=== PATIENT | male | born 1990 | race Caucasian/White ===

== ENCOUNTER 2024-01-16 09:01 | Emergency (ER) | payer OTHER, SELFPAY ==
[2024-01-16 09:03] VITALS: BP 136/100; PULSE 99; RESP 18; TEMP 36.4; O2SAT 98; BMI 40.3
--- NOTE | 2024-01-16 09:12 | NURSING ---
NO OLD EKGS
--- NOTE | 2024-01-16 09:17 | EKG12_ITS ---
Test Reason : PALP Blood Pressure : / mmHG Vent. Rate : 087 BPM Atrial Rate : 087 BPM P-R Int : 190 ms QRS Dur : 080 ms QT Int : 332 ms P-R-T Axes : 036 013 008 degrees QTc Int : 399 ms Normal sinus rhythm Normal ECG Confirmed by Julius Tomlinson ([id number]), communications editor SLOANE MCPHERSON ([id number]) on 01/17/2024 9:23:40 AM Referred By: JOANN/CRIS Confirmed By:Julius Tomlinson
--- NOTE | 2024-01-16 09:17 | RAD_ITS ---
INDICATION: chest pain EXAMINATION/TECHNIQUE: X-RAY - XR Chest 1 View COMPARISON: No relevant prior comparison study available FINDINGS: LINES/DEVICES: None. LUNGS: No consolidation, edema or effusion. No pneumothorax. MEDIASTINUM AND CARDIOVASCULAR STRUCTURES: Cardiac silhouette not enlarged. Central airways and mediastinal contour are unremarkable. BONES AND SOFT TISSUES: Unremarkable. RAD/Chest 1 View (Portable) IMPRESSION: No radiographic evidence of acute cardiopulmonary disease. Electronically Signed: Viry Donahue MD at 9:49 EDT ,
--- NOTE | 2024-01-16 09:21 | EDS_ITS ---
HPI History of Present Illness Chief Complaint: Palpitations PFSH PFSH Allergy/AdvReac Type Severity Reaction Status Date / Time No Known Allergies Allergy Verified 01/16/24 09:02 Social History Smoking Status: Never smoker EXAM Physical Exam Const Vital Signs: 01/16/24 09:03 01/16/24 10:01 01/16/24 10:02 Temperature 97.6 F L Temperature Source Oral Pulse Rate 99 77 Respiratory Rate 18 15 Blood Pressure 136/100 H 123/84 H Blood Pressure Mean 112 97 Pulse Ox 98 Oxygen Delivery Method Room Air Room Air 01/16/24 11:00 01/16/24 12:00 01/16/24 13:00 Temperature Temperature Source Pulse Rate 77 81 62 Respiratory Rate 14 19 H Blood Pressure 135/81 H 107/46 L 121/67 H Blood Pressure Mean 99 66 85 Pulse Ox Oxygen Delivery Method MDM MDM MDM Narrative Medical decision making narrative: HISTORY OF PRESENT ILLNESS: 33-year-old male presents with concern for heart fluttering. States he was driving to work. He felt like his heart was racing like he drank too much red bull. He states his dad in August from a heart attack. 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 Notes this occurred 1- 1/2 hours prior to arrival. Notes last for approximate 20 minutes. Notes this resolved spontaneously. The patient denies recent surgery in the last 4 weeks or immobilization in the last 3 days, denies previous diagnosis of DVT or PE, hemoptysis, unilateral leg swelling or malignancy with treatment the last 6 months or palliative. No estrogen use noted. Patient denies sudden onset of pain, no tearing sensation, no migratory symptoms, no new numbness, weakness or loss of sensation. Patient denies family history or personal history of Connective tissue disorders (Marfan's Syndrome, Jad Danlos etc) REVIEW OF SYSTEMS: Pertinent positives: Palpitations Pertinent negatives: Syncope, chest pain, shortness of breath, leg swelling, bleeding diathesis, mopped assist. PHYSICAL EXAM: Nursing triage notes reviewed, Vital signs reviewed Constitutional: please see mdm HENT: MMM Eyes: Pupils equal round and reactive to light, Extraocular muscles intact Neck: No stridor, no JVD, full neck ROM Lungs: Clear to auscultation, No wheezing or rales. No increased work of breathing, no conversational dyspnea, no accessory muscle use, no nasal flaring. No respiratory distress noted Heart: Regular rate and rhythm, No murmurs, No rubs and No gallops, 2+ distal pulses (radial, femoral, posterior tibial) in all extremities Abdomen: Soft, there is no tenderness, rigidity, rebound or guarding, no obvious peritoneal signs, no palpable pulsatile abdominal masses, no auscultated abdominal bruit : No CVAT Extremities: No edema Neuro: No focal neurological deficits, cranial nerves II through XII intact, 5/5 strength in all extremities. Intact sensation to light touch in all extremities, 2+ reflexes bilateral patella tendons. Normal gait. No ataxia. Skin: No rash or lesions noted MEDICAL DECISION MAKING: Chief Complaint: Palpitations External records reviewed: Reviewed prior allergy allergies, vital signs, home medications, prior cardiac imaging. Factors affecting care: none Social determinants of health: denies cocaine or methamphetamine History obtained from others: none Consults: none no focal cardiopulmonary normalities. No pulse deficits. MDM Narrative: The patient was initially hemodynamically stable, afebrile and nontoxic- appearing. Exam without focal cardiopulmonary normalities I considered the following differential diagnosis: Arrhythmia, anemia, electrolyte disturbance, thyroid dysfunction, pneumonia, pneumothorax, ACS, PE, aortic dissection While considered the patient's history and physical exam was not consistent with pulm embolism or any dissection ALL IMAGES (IF OBTAINED) HAVE BEEN PERSONALLY REVIEWED AND INTERPRETED BY MYSELF. EKG with normal sinus rhythm, normal axis, normal intervals, no STEMI CBC without leukocytosis, severe anemia, no thrombocytopenia. High-sensitivity troponin is negative, no evidence of myocardial ischemiax2 TSH, free T3 and T4 within normal limits no evidence of thyroid dysfunction I have personally reviewed the patient's chest x-ray. Chest x-ray is unremarkable for pulmonary edema, pneumothorax, pneumonia or focal cardiopulmonary abnormality. CBC without leukocytosis, severe anemia, no thrombocytopenia. BMP without evidence of significant electrolyte abnormalities, no anion gap, no acute kidney injury. I completed a HEART Score to screen for Major Adverse Cardiac Event (MACE) in this patient. The evidence indicates that the patient is very low risk for MACE and this is consistent with my clinical intuition. The risk of further workup or hospitalization for MACE is likely higher than the risk of the patient having a MACE. It is, therefore, in the patient?s best interest not to do additional emergent testing or to be hospitalized for MACE at this time. Shared Decision-Making No hospitalization indicated I have discussed with the patient my clinical impression and the result of the HEART Score to screen for MACE, as well as the risks of further testing and hospitalization. The HEART Score shows that the risk for MACE is less than 1%. Although the risk of MACE has not been completely eliminated, the risks of f urther testing or hospitalization for MACE likely exceed any potential benefit, and the patient agrees with not pursuing further emergent evaluation or hospitalization for MACE at this time. The patient and/or family, caregivers express understanding. The patient and/or family, caregivers agrees with the plan. Total critical care time today provided was at least 0 [] minutes. This excludes separately billable procedures. Critical care time (if documented) is secondary to the patient having high probability of clinically significant/life threatening deterioration in the patient's condition which required my urgent intervention. Impression: 1. Palpitations 2. Family history of myocardial infarction Dispo: discharge home This note was generated with [employer] dictation software. It may contain incorrect words, spelling, and punctuation that were not noted in review of the chart prior to signing. Lab Data Labs: Laboratory Results - last 24 hr 01/16/24 01/16/24 09:30 11:40 WBC 7.1 RBC 4.60 Hgb 13.6 Hct 38.8 L MCV 84.3 MCH 29.6 MCHC 35.1 RDW Std Deviation 38.0 RDW Coeff of Kimberlee 12.5 Plt Count 185 MPV 8.7 Immature Gran % (Auto) 0.100 Neut % (Auto) 70.7 H Lymph % (Auto) 22.1 [place] % (Auto) 5.2 Eos % (Auto) 1.5 Baso % (Auto) 0.4 Absolute Neuts (auto) 5.0 Absolute Lymphs (auto) 1.57 Nucleated RBC % 0 Sodium 140 Potassium 3.9 Chloride 108 H Carbon Dioxide 26.0 Anion Gap 6 BUN 12 Creatinine 1.18 Estim Creat Clear Calc 101.79 Est GFR (MDRD) Af Amer 91 Est GFR (MDRD) Non-Af 75 BUN/Creatinine Ratio 10.2 Glucose 119 H Calcium 9.5 Troponin I High Sens 4 4 TSH 1.920 Free T4 0.95 Free T3 pg/dL 3.2 Radiography Diagnostic Testing: Clinical Impression(s) from Imaging Studies Chest X-Ray 10/15/24 09:17 IMPRESSION: No radiographic evidence of acute cardiopulmonary disease. Electronically Signed: Viry Donahue MD at 9:49 EDT , Discharge Plan Triage Chief Complaint: Palpitations ED Provider: Jeffrey Fregoso Dx/Rx/DC Orders Primary Care Provider: Drew Ann Referrals: Drew Ann, DO [Primary Care Provider] - Print Language: Senegalese
[2024-01-16 09:36] LABS: Absolute Lymphocyte Count 1.57 X10^3/uL (0.83-4.51); Basophil# 0.03 X10^3/uL; Basophil% 0.4 % (0-1); Eosinophil# 0.11 X10^3/uL; Eosinophils% 1.5 % (0-5); Hematocrit 38.8 % (40-54); Hemoglobin 13.6 g/dL (13.0-16.5); Lymphocyte # 1.57 X10^3/ul (0.83-4.51); Lymphocyte % 22.1 % (19-41); Mean Corp Hgb Conc 35.1 g/dL (32-36); Mean Corpuscular Hgb 29.6 pg (27.0-32.0); Mean Corpuscular Volume 84.3 fL (80-94); Mean Platelet Vol. 8.7 fl (6.2-12.0); Monocyte# 0.37 X10^3/uL; Monocyte% 5.2 % (0-10); NRBC Flagged by Analyzer 0 % (0-5); Neutrophil # 5.01 X10^3/uL (2.7-7.7); Neutrophil % 70.7 % (47-70); Platelet Count 185 K/mm3 (150-450); RBC Distribution Width CV 12.5 % (11.6-14.6); White Blood Count 7.1 K/mm3 (4.4-11.0)
[2024-01-16 10:01] LABS: Anion Gap 6 (5-15); BUN 12 mg/dL (7-18); BUN/Creat Ratio 10.2 RATIO (10-20); Calcium,Total 9.5 mg/dL (8.5-10.1); Chloride 108 mmol/L (98-107); Creatinine, Serum 1.18 mg/dL (0.70-1.30); EST Glomerular Filtration Rate 75 mL/min (>60); Est Glom Filt Rate - Afr Amer 91 mL/min (>60); Estimated Creatinine Clearance 101.79 ml/min; Free T3 3.2 pg/mL (2.18-3.98); Glucose 119 mg/dL (74-106); Potassium 3.9 mmol/L (3.5-5.1); Sodium Level 140 mmol/L (136-145); T4 Free Direct 0.95 ng/dL (0.76-1.46); Troponin-I HS (w/2H Reflex) 4 pg/mL (3.0-78.0)
[2024-01-16 10:02] VITALS: BP 123/84; PULSE 77; RESP 15
[2024-01-16 11:00] VITALS: BP 135/81; PULSE 77; RESP 14
[2024-01-16 11:33] LABS: Reflex Troponin-HS? (from REC) Y
[2024-01-16 12:00] VITALS: BP 107/46; PULSE 81; RESP 19
[2024-01-16 12:05] LABS: Troponin-I HS 4 pg/mL (3.0-78.0)
[2024-01-16 13:00] VITALS: BP 121/67; PULSE 62
[2024-01-16 13:20] VITALS: BP 102/76; PULSE 80; RESP 16; TEMP 36.4; O2SAT 100
== END 2024-01-16 13:49 | disposition home or self-care (01) ==
PROVIDERS: Emergency Provider Emergency Medicine; PCP Family Medicine; Visit Provider Emergency Medicine
DX: R00.2 Palpitations (principal); Z82.49 Family history of ischemic heart disease and other diseases of the circulatory system
CPT/HCPCS: 71045; 80048; 84439; 84443; 84481; 84484; 85025; 93005; 99284; A4216

== ENCOUNTER 2024-11-03 02:54 | Emergency (ER) | payer OTHER, SELFPAY ==
[2024-11-03 02:55] VITALS: BP 144/92; PULSE 90; RESP 14; TEMP 36.4; O2SAT 98; BMI 39.2
--- NOTE | 2024-11-03 03:30 | EKG12_ITS ---
Test Reason : PAIN Blood Pressure : */* mmHG Vent. Rate : 78 BPM Atrial Rate : 78 BPM P-R Int : 184 ms QRS Dur : 78 ms QT Int : 360 ms P-R-T Axes : 23 14 10 degrees QTcB Int : 410 ms Normal sinus rhythm Normal ECG Confirmed by PATTI HAMM, TORI ([id number]), design editor SLOANE MCPHERSON ([id number]) on 11/05/2024 7:46:25 AM Referred By: Confirmed By: TORI ARMSTRONG MD
[2024-11-03 03:43] LABS: Hematocrit 38.7 % (40-54); Hemoglobin 13.8 g/dL (13.0-16.5); Immature Granulocytes Count 0.020 X10^3/uL (0.0-0.0); Mean Corp Hgb Conc 35.7 g/dL (32-36); Mean Corpuscular Volume 84.9 fL (80-94); Mean Platelet Vol. 8.8 fl (6.2-12.0); NRBC Flagged by Analyzer 0 % (0-5); Platelet Count 188 K/mm3 (150-450); RBC Distribution Width CV 12.3 % (11.6-14.6); RBC Distribution Width SD 37.6 fl (35.1-43.9); Red Blood Count 4.56 M/mm3 (4.6-6.2); White Blood Count 7.2 K/mm3 (4.4-11.0)
[2024-11-03] MEDS: 0.9% Normal Saline (500mL Bag) 500 ML 999 ML IV (03:44)
--- OUTSIDE RECORDS SUMMARY | 2024-11-03 04:29 | XMS RPT_ITS | CCD ---
Author Organization [facility] Care Team Providers Care Syrup Mixer Helper Name Role Phone Khalida Ann DO A Unavailable Letty DO, Khalida A Primary Care Provider Jefrfey Fregoso Attending Unavailable Letty, Khalida Primary Care Unavailable Letty, Khalida Referring Unavailable Letty, Khalida Attending Unavailable Letty, Khalida Primary Care Unavailable Letty DO, Khalida A Unavailable [phone] Letty DO, Khalida A Primary Care Provider KATHRINE HUNTER Attending Unavailable LETTY, KHALIDA A Primary Care Unavailable LETTY, KHALIDA A Primary Care Unavailable KATHRINE HUNTER Referring Unavailable LETTY, KHALIDA A Primary Care Unavailable KATHRINE HUNTER Attending Unavailable KATHRINE HUNTER Referring Unavailable LETTY, KHALIDA A Primary Care Unavailable LETTY, KHALIDA A Primary Care Unavailable KATHRINE HUNTER Attending Unavailable KATHRINE HUNTER Referring Unavailable LETTY, KHALIDA A Primary Care Unavailable KATHRINE HUNTER Referring Unavailable LETTY, KHALIDA A Primary Care Unavailable LETTY, KHALIDA A Referring Unavailable LETTY, KHALIDA A Primary Care Unavailable LETTY, KHALIDA A Primary Care Unavailable KATHRINE HUNTER Attending Unavailable KATHRINE HUNTER Referring Unavailable LETTY, KHALIDA A Primary Care Unavailable LETTY, KHALIDA A Primary Care Unavailable LETTY, KHALIDA A Primary Care Unavailable KATHRINE HUNTER Referring Unavailable LETTY, KHALIDA A Primary Care Unavailable LETTY, KHALIDA A Primary Care Unavailable KATHRINE HUNTER Referring Unavailable LETTY, KHALIDA A Primary Care Unavailable LETTY, KHALIDA A Referring Unavailable LETTY, KHALIDA A Primary Care Unavailable Medications Current Medications Medication Drug Class(es) Dates Sig (Normalized) Sig (Original) benztropine mesylate 0.5 mg oral tablet (20 sources) Anticholinergic, Antihistamine Start: 04-06-2023 End: 02-20-2024 take 1 tablet by mouth twice daily benztropine (COGENTIN) 0.5 mg tablet Take 1 tablet by mouth two times a day. 180 tablet 02/20/2024 Active Start: 03-31-2022 End: 05-05-2022 take 1 tablet by mouth twice daily benztropine (COGENTIN) 0.5 mg tablet Take 1 tablet by mouth twice daily. 180 tablet 1 05/05/2022 Active Start: 02-28-2022 take 1 tablet by gris th twice daily benztropine (COGENTIN) 0.5 mg tablet Take 1 tablet by mouth twice daily. 180 tablet 0 02/28/2022 Active Start: 2021 End: 02-28-2022 take 1 tablet by mouth twice daily benztropine (COGENTIN) 0.5 mg tablet Take 1 tablet by mouth twice daily. 180 tablet 0 01/03/2022 02/28/2022 Discontinued Comment on above: Take 1 tablet by gris th twice daily. TAKE 1 TABLET BY GRIS TH TWICE A DAY Take 1 tablet by gris th two times a day. 24 hr buPROPion hydrochloride 300 mg extended release oral tablet (20 sources) Aminoketone Start: End: take 1 tablet by mouth once daily in the morning buPROPion XL (WELLBUTRIN XL) 300 mg 24 hr tablet TAKE 1 TABLET BY MOUTH EVERY MORNING 90 tablet 09/23/2024 Active Start: 04-01-2021 End: 03-09-2023 take 1 tablet by mouth once daily in the morning buPROPion XL (WELLBUTRIN XL) 300 mg 24 hr tablet take 1 tablet by mouth once daily in the morning 90 tablet 0 03/09/2023 Active Comment on above: Take 1 tablet by gris th every morning. take 1 tablet by gris th once daily in the morning fenofibrate 54 mg oral tablet (20 sources) Peroxisome Proliferator Receptor alpha Agonist Start: 09-17-19 Fenofibrate (LOFIBRA) 54 mg tablet 09/16/2021 Active hydrOXYzine hydrochloride 25 mg oral tablet (20 sources) Antihistamine Start: 03-28-20 End: 01-22-20 25 take 1 tablet by mouth every eight hours as needed hydrOXYzine HCl (ATARAX) 25 mg tablet TAKE 1 TABLET BY MOUTH THREE TIMES DAILY NEEDED FOR ANXIETY 90 tablet 04/24/2024 Active Start: 09-05-2023 End: 12-04-2023 take 1 tablet by mouth every eight hours as needed hydrOXYzine HCl (ATARAX) 25 mg tablet Take 1 tablet by mouth three times a day as needed for anxiety. 90 tablet 2 09/05/2023 12/04/2023 Active Start: 03-06-2023 End: 08-14-2023 take 1 tablet by mouth every eight hours as needed hydrOXYzine HCl (ATARAX) 25 mg tablet Take 1 tablet by mouth three times a day as needed for anxiety. 90 tablet 2 05/16/2023 08/14/2023 Active Start: 08-15-2022 End: 09-14-2022 take 1 tablet by mouth every eight hours as needed hydrOXYzine HCl (ATARAX) 25 mg tablet Take 1 tablet by mouth three times daily as needed for anxiety. 90 tablet 3 08/15/2022 09/14/2022 Active Start: 04-05-2021 End: 10-03-2021 take 1 tablet by mouth every eight hours as needed hydrOXYzine HCl (ATARAX) 10 mg tablet Take 1 tablet by mouth three times daily as needed for anxiety. 90 tablet 1 07/05/2021 10/03/2021 Active Comment on above: TAKE 1 TABLET BY GRIS TH THREE TIMES A DAY NEEDED FOR ANXIETY Take 1 tablet by gris th three times daily as needed for anxiety. take 1 tablet by gris th three times daily as needed for anxiety Take 1 tablet by gris th three times a day as needed for anxiety. lamoTRIgine 150 mg oral tablet (20 sources) Mood Stabilizer, Anti-epileptic Agent Start: 10-23-2024 End: 01-21-2025 take 1 tablet by mouth once daily lamoTRIgine (LAMICTAL) 150 mg tablet Take 1 tablet by mouth once daily. 90 tablet 10/23/2024 01/21/2025 Active Start: 07-06-2023 End: 09-30-2024 take 1 tablet by mouth once daily lamoTRIgine (LAMICTAL) 150 mg tablet Take 1 tablet by mouth once daily. 90 tablet 07/02/2024 09/30/2024 Active Start: 09-13-2022 End: 08-14-2023 take 1 tablet by mouth once daily lamoTRIgine (LAMICTAL) 100 mg tablet Take 1 tablet by mouth once daily. 90 tablet 0 05/16/2023 07/06/2023 Discontinued Start: 08-15-2022 End: 09-26-2022 take 1 tablet by mouth once daily, then take 2 tablets by mouth once daily, then take 3 tablets by mouth once daily lamoTRIgine (LAMICTAL) 25 mg tablet Take 1 tablet by mouth once daily for 14 days, THEN 2 tablets once daily for 14 days, THEN 3 tablets once daily for 14 days. 84 tablet 0 08/15/2022 09/26/2022 Active Comment on above: Take 1 tablet by gris th once daily for 14 days, THEN 2 tablets once daily for 14 days, THEN 3 tablets once daily for 14 days. Take 1 tablet by gris th once daily. Take 1 tablet by gris th once daily prazosin 2 mg oral capsule (20 sources) alpha-Adrenergic Kayla Start: 06-10-2024 End: 07-02-2024 take 1 capsule by mouth every twenty-four hours as needed prazosin (MINIPRESS) 2 mg cap Take 1 capsule by mouth at bedtime as needed. 90 capsule 07/02/2024 Active Start: 09-05-2023 End: 05-20-2024 take 1 capsule by mouth once daily at bedtime prazosin (MINIPRESS) 2 mg cap Take 1 capsule by mouth daily at bedtime. 90 capsule 02/20/2024 05/20/2024 Active Start: 08-04-2023 End: 09-21-2023 take 1 capsule by mouth once daily at bedtime prazosin (MINIPRESS) 1 mg cap Take 1 capsule by mouth daily at bedtime. 30 capsule 0 08/22/2023 09/05/2023 Discontinued (Adjust Sig - Block E-Cancel) risperiDONE 12.5 mg injection (20 sources) Atypical Antipsychotic Start: 07-09-2024 End: 10-29-2024 inject 4 mL by intramuscular injection every other week risperiDONE Microspheres (RISPERDAL CONSTA) 12.5 mg/2 mL susp,ERrecon INJECT 4 ML INTRAMUSCULARLY EVERY TWO WEEKS 4 each 3 10/23/2024 Active Start: 05-27-2024 End: 10-22-2024 take 1 tablet by mouth once daily at bedtime risperiDONE (RISPERDAL) 4 mg tablet Take 1 tablet by mouth daily at bedtime. 90 tablet 10/23/2024 Active Start: 04-06-2023 End: 07-23-2024 inject 4 mL by intramuscular injection every other week risperiDONE Microspheres (RISPERDAL CONSTA) 12.5 mg/2 mL susp,ERrecon INJECT 4 ML INTRAMUSCULARLY EVERY TWO WEEKS 4 each 3 07/23/2024 Active Start: 02-02-2023 End: 03-09-2023 inject 4 mL by intramuscular injection every other week risperiDONE Microspheres (RISPERDAL CONSTA) 12.5 mg/2 mL susp,ERrecon INJECT 4 ML INTRAMUSCULARLY EVERY TWO WEEKS 4 Each 2 03/09/2023 Active Start: 08-15-2022 End: 05-20-2024 take 1 tablet by mouth once daily at bedtime risperiDONE (RISPERDAL) 4 mg tablet Take 1 tablet by mouth daily at bedtime. 90 tablet 02/20/2024 05/20/2024 Active Start: 08-15-2022 End: 06-07-2023 take 1 tablet by mouth once daily risperiDONE (RISPERD AL) 1 mg tablet Take 1 tablet by mouth once daily. 90 tablet 0 03/09/2023 06/07/2023 Active Start: 08-15-2022 End: 11-29-2022 inject 4 mL by intramuscular injection every other week risperiDONE Microspheres (RISPERDAL CONSTA) 12.5 mg/2 mL susp,ERrecon Inject 4 mL intramuscularly every 2 weeks. 4 Each 4 08/31/2022 Active Start: 07-05-2021 End: 08-03-2022 take 1 tablet by mouth once daily risperiDONE (RISPERD AL) 1 mg tablet Take 1 tablet by mouth once daily. 90 tablet 1 05/05/2022 08/03/2022 Active Start: 04-01-2021 End: 08-03-2022 take 1 tablet by mouth once daily at bedtime risperiDONE (RISPERDAL) 4 mg tablet Take 1 tablet by mouth daily at bedtime. 90 tablet 1 05/05/2022 08/03/2022 Active Start: 04-01-2021 End: 08-03-2022 inject 4 mL by intramuscular injection every other week risperiDONE Microspheres (RISPERDAL CONSTA) 12.5 mg/2 mL susp,ERrecon Inject 4 mL intramuscularly every 2 weeks. 4 Each 2 05/05/2022 08/03/2022 Active Comment on above: Take 1 tablet by gris th daily at bedtime. Inject 4 mL intramus cularly every 2 weeks. Take 1 tablet by gris th once daily as needed. Take 1 tablet by gris th once daily. INJECT 4 ML INTRAMUS CULARLY EVERY TWO WEEKS Problems Active Problems Problem Classification Problem Date Documented Date Episodic/Chronic Anxiety disorders (13 sources) Generalized anxiety disorder; Translations: [Generalized anxiety disorder] Onset: 11-17-2023 Chronic Cardiac dysrhythmias (1 source) Palpitations; Translations: [Palpitations] Onset: 02-07-2024 Episodic Disorders of lipid metabolism (3 sources) Hyperlipoproteinemia; Translations: [Hyperlipidemia, unspecified] Onset: 09-09-2023 07-17-2023 Chronic Nonspecific chest pain (1 source) Chest pain; Translations: [Chest pain, unspecified] 01-16-2024 Episodic Schizophrenia and other psychotic disorders (20 sources) Schizoaffective disorder, bipolar type; Translations: [Schizoaffective disorder, bipolar type] Onset: 08-15-2022 Chronic Unclassified (3 sources) NO SHOW Unclassified (1 source) APPOINTMENT CANCELLED 08-08-2023 Past or Other Problems Problem Classification Problem Date Documented Da te Episodic/Chronic Administrative/social admission (2 sources) Stress; Translations: [Other specified problems related to psychosocial circumstances] Onset: 07-23-2024 07-23-2024 Episodic Other aftercare (19 sources) Long-term current use of drug therapy; Translations: [Other half-way (current) drug therapy] Onset: 06-26-2024 02-20-2024 Episodic Other aftercare (1 source) Other half-way (current) drug therapy; Translations: [Encounter for long-term (current) use of medications] Onset: 06-26-2024 Episodic Residual codes; unclassified (1 source) Family history of ischemic heart disease and other diseases of the circulatory system; Translations: [Family history of ischemic heart disease and other diseases of the circulatory system] Onset: 09-09-2023 Episodic Results Test Name Value Interpretation Reference Range Facility [facility] 10-29-2024 CNOV Office Visit (PSWSTR ) LENY ISSA ([id number]) 1990 M Date Time Provider Department 10/29/24 4:30 PM KATHRINE HUNTER PSWSTR During your visit today, we recorded the following information about you: Kathrine Hunter, LATISHA.PLASTIC AND RECONSTRUCTIVE SURGEON 10/29/2024 5:02 PM Signed Patient did not come in for his scheduled follow up appointment today. Referring Provider: KATHRINE HUNTER [[id number]] Allergies As of Date: 10/29/2024 (No Known Allergies) Date Reviewed: 07/23/2024 Reviewed by: Marcia Dodd LPN - Fully Assessed Reason for Visit: No Show [1558] Primary Visit Diagnosis:NO SHOW Prescriptions as of 10/29/2024 - lamoTRIgine (LAMICTAL) 150 mg tablet Take 1 tablet by mouth once daily. - risperiDONE (RISPERDAL) 4 mg tablet Take 1 tablet by mouth daily at bedtime. - risperiDONE Microspheres (RISPERDAL CONSTA) 12.5 mg/2 mL susp,ERrecon INJECT 4 ML INTRAMUSCULARLY EVERY TWO WEEKS - buPROPion XL (WELLBUTRIN XL) 300 mg 24 hr tablet TAKE 1 TABLET BY MOUTH EVERY MORNING - prazosin (MINIPRESS) 2 mg cap Take 1 capsule by mouth at bedtime as needed. - hydrOXYzine HCl (ATARAX) 25 mg tablet TAKE 1 TABLET BY MOUTH THREE TIMES DAILY NEEDED FOR ANXIETY - benztropine (COGENTIN) 0.5 mg tablet Take 1 tablet by mouth two times a day. - Fenofibrate (LOFIBRA) 54 mg tablet Problem List As Of Date 10/29/2024 Noted Resolved Schizoaffective disorder, bipolar type (HCC) [F*08/15/2022 Encounter for long-term (current) use of medica*06/26/2024 Encounter Status:Closed by KATHRINE HUNTER on 10/29/24 [facility] CNOVon 08-06-2024 CNOV Office Visit (PSWSTR ) LENY ISSA ([id number]) 1990 M Date Time Provider Department 08/06/24 1:00 PM NURSE [facility] WSTR PSWSTR During your visit today, we recorded the following information about you: Marcia Dodd LPN 08/06/2024 1:40 PM Signed Patient arrives for Risperdal injection per Kathrine Hunter CNP. Patient has no complaints or concerns today about injection. Patient brought medication to visit, is explaining new insurance has dropped cost to 50$ for brand name medication is very happy about that. Will be picking up at pharmacy. Brand name is mixing better, leaving no white residue left in bottle. Patient feels this is a better option for him. Patient education given on SE of medication, patient verbalized understanding and agrees to proceed with treatment. Injection given and tolerated well. Next nurse visit scheduled for 08/20/2024 @ 4:30. Marcia Dodd LPN Referring Provider: KATHRINE HUNTER [[id number]] Allergies As of Date: 08/06/2024 (No Known Allergies) Date Reviewed: 07/23/2024 Reviewed by: Marcia Dodd LPN - Fully Assessed Reason for Visit: Follow Up [171] Cmt: Schizoaffective disorder, bipolar type Imm/Inj [58] Primary Visit Diagnosis:Schizoaffect montse disorder, bipolar type (HCC) [F25.0] Other Visit Diagnosis:Encounter for long-term (current) use of medications [Z79.899] Prescriptions as of 08/06/2024 - risperiDONE Microspheres (RISPERDAL CONSTA) 12.5 mg/2 mL susp,ERrecon INJECT 4 ML INTRAMUSCULARLY EVERY TWO WEEKS - buPROPion XL (WELLBUTRIN XL) 300 mg 24 hr tablet take 1 tablet by mouth once daily in the morning - lamoTRIgine (LAMICTAL) 150 mg tablet Take 1 tablet by mouth once daily. - risperiDONE (RISPERDAL) 4 mg tablet Take 1 tablet by mouth daily at bedtime. - prazosin (MINIPRESS) 2 mg cap Take 1 capsule by mouth at bedtime as needed. - hydrOXYzine HCl (ATARAX) 25 mg tablet TAKE 1 TABLET BY MOUTH THREE TIMES DAILY NEEDED FOR ANXIETY - benztropine (COGENTIN) 0.5 mg tablet Take 1 tablet by mouth two times a day. - Fenofibrate (LOFIBRA) 54 mg tablet Facility-Administered Medications as of 08/06/2024 - risperiDONE Microspheres 12.5 mg (RisperDAL CONSTA) Problem List As Of Date 08/06/2024 Noted Resolved Schizoaffective disorder, bipolar type (HCC) [F*08/15/2022 Encounter for long-term (current) use of medica*06/26/2024 Encounter Status:Closed by MARCIA DODD on 08/06/24 [facility] CNOVjude 07-23-2024 CNOV Office Visit (PSWSTR ) LENY ISSA ([id number]) 1990 M Date Time Provider Department 07/23/24 1:00 PM KATHRINE HUNTER PSWSTR During your visit today, we recorded the following information about you: Pulse Weight 88/minute 105.6 kg Kathrine Hunter, DECORATING INSTRUCTOR.PLASTIC AND RECONSTRUCTIVE SURGEON 07/23/2024 1:57 PM Signed FOLLOW UP - PSYCHIATRIC PROGRESS NOTE Visit Type: In person Recording using [employer] software for draft documentation of the visit was discussed with the patient/authorized product sales representative; all questions welcomed and answered. Patient/authorized product sales representative agreed to proceed CC: Outpatient follow-up and safety monitoring of previously prescribed psychiatric medication, psychotherapy or other treatment HPI: Patient is a 34-year-old male with a history of Schizoaffective disorder and PTSD presenting for follow-up after the of his first child. Patient reports a recent significant life event: the of his first child, who was born prematurely at 35 weeks and required a 2-week stay in the NICU. The infant is now 2 weeks old and has been home since Monday. The patient describes the NICU experience as stressful but notes that the infant is doing well, eating and drinking adequately, and has gained weight, now weighing 6 lbs 7 oz, above his weight of 6 lbs 4 oz. The patient recounts a particularly challenging night when his experienced complications during delivery, including a retained placenta that required a 3-hour surgery and resulted in significant blood loss (1,300 cc's). He describes this period as rough and expresses gratitude for the support of his [id number], who was able to assist during this time. Since returning home, the patient reports that he and his have been working well together as a team to care for their . They take turns with night feedings, allowing each other to rest. He mentions one particularly rough night when he forgot to use his CPAP machine and overslept, but overall, he reports that they have been managing well. He notes that the baby has been adjusting to the new environment and has been sleeping better with the help of NICU sounds played from [employer]. The patient has been able to maintain his medication regimen, including lamotrigine, bupropion, risperidone, and benztropine. He temporarily stopped taking prazosin and hydroxyzine, which are prescribed as needed for anxiety and trauma-related sleep disturbances, to avoid excessive sedation during this period. He expresses interest in resuming prazosin if needed in the future. He reports strong family support, particularly from his mother and [id number], who have been respectful and helpful during this time. His [id number] was instrumental in administering his risperidone injection during the NICU stay, ensuring no gap in his medication. The patient has a month of paternity leave remaining, which he believes will help with the transition to parenthood. He is vigilant about his mental health, practicing mindfulness and grounding techniques during his daily routines to maintain stability. Risks and benefits of the medication, including any black box warnings, were discussed with the patient. Interval Progress: Same PATIENT DATA: Generalized Anxiety Disorder Scale (CLYDE-7) 09/05/2023 09/19/2023 02/20/2024 CLYDE - 7 SCORES Score 1 1 0 (0-4) minimal anxiety, (5-9) mild anxiety, (10-14) moderate anxiety, (15-21) severe anxiety Patient Health Questionnaire (PHQ-9) 09/05/2023 09/19/2023 02/20/2024 PHQ-9 Score 4 1 2 (0-4) minimal depression, (5-9) mild depression, (10-14) moderate depression, (15-19) moderately severe depression, (20-27) severe depression History reviewed. No pertinent past medical history. No past surgical history on file. ALLERGIES No Known Allergies Current Outpatient Medications on File Prior to Visit Medication Sig risperiDONE Microspheres (RISPERDAL CONSTA) 12.5 mg/2 mL susp,ERrecon INJECT 4 ML INTRAMUSCULARLY EVERY TWO WEEKS buPROPion XL (WELLBUTRIN XL) 300 mg 24 hr tablet take 1 tablet by mouth once daily in the morning lamoTRIgine (LAMICTAL) 150 mg tablet Take 1 tablet by mouth once daily. risperiDONE (RISPERDAL) 4 mg tablet Take 1 tablet by mouth daily at bedtime. prazosin (MINIPRESS) 2 mg cap Take 1 capsule by mouth at bedtime as needed. hydrOXYzine HCl (ATARAX) 25 mg tablet TAKE 1 TABLET BY MOUTH THREE TIMES DAILY NEEDED FOR ANXIETY benztropine (COGENTIN) 0.5 mg tablet Take 1 tablet by mouth two times a day. Fenofibrate (LOFIBRA) 54 mg tablet Current Facility-Administered Medications on File Prior to Visit Medication risperiDONE Microspheres 12.5 mg (RisperDAL CONSTA) ROS: See HPI PFSH: See HPI VITAL SIGNS: There were no vitals filed for this visit. MENTAL STATUS EXAM: Appearance: Well dressed, well groomed Behavior: Behaves appro (more content not included)... Normal [facility] David 07-19-2024 [facility] Telephone (PSWSTR) LENY ISSA ([id number]) 1990 M Date Time Provider Department 07/19/24 KATHRINE HUNTER PSWSTR During your visit today, we recorded the following information about you: Brenda Fuller RN 07/19/2024 10:47 AM Signed Edmar Pharmacist calling from [facility], with questions regarding pt's risperidone injection prescription. Questions answered. Brenda Fuller RN Allergies As of Date: 07/19/2024 (No Known Allergies) Date Reviewed: 02/20/2024 Reviewed by: Marcia Dodd LPN - Fully Assessed Reason for Visit: Pharmacy Call [Other] Prescriptions as of 07/19/2024 - risperiDONE Microspheres (RISPERDAL CONSTA) 12.5 mg/2 mL susp,ERrecon INJECT 4 ML INTRAMUSCULARLY EVERY TWO WEEKS - buPROPion XL (WELLBUTRIN XL) 300 mg 24 hr tablet take 1 tablet by mouth once daily in the morning - lamoTRIgine (LAMICTAL) 150 mg tablet Take 1 tablet by mouth once daily. - risperiDONE (RISPERDAL) 4 mg tablet Take 1 tablet by mouth daily at bedtime. - prazosin (MINIPRESS) 2 mg cap Take 1 capsule by mouth at bedtime as needed. - hydrOXYzine HCl (ATARAX) 25 mg tablet TAKE 1 TABLET BY MOUTH THREE TIMES DAILY NEEDED FOR ANXIETY - benztropine (COGENTIN) 0.5 mg tablet Take 1 tablet by mouth two times a day. - Fenofibrate (LOFIBRA) 54 mg tablet Facility-Administered Medications as of 07/19/2024 - risperiDONE Microspheres 12.5 mg (RisperDAL CONSTA) Problem List As Of Date 07/19/2024 Noted Resolved Schizoaffective disorder, bipolar type (HCC) [F*08/15/2022 Encounter for long-term (current) use of medica*06/26/2024 Encounter Status:Closed by BREN[facility]ER [facility] Tele[facility] (PSWSTR) LENY ISSA ([id number]) 1990 M Date Time Provider Department 07/17/24 KATHRINE HUNTER PSWSTR During your visit today, we recorded the following information about you: Marcia Dodd LPN 07/17/2024 9:58 AM Signed Message left needing pharmacy info for injection rx. [facility] is unable to get. FAVIOLA Noble Nishi J, LATISHA.PLASTIC AND RECONSTRUCTIVE SURGEON 07/17/2024 1:09 PM Signed Addressed in a separate phone encounter. Allergies As of Date: 07/17/2024 (No Known Allergies) Date Reviewed: 02/20/2024 Reviewed by: Marcia Dodd LPN - Fully Assessed Prescriptions as of 07/17/2024 - risperiDONE Microspheres (RISPERDAL CONSTA) 12.5 mg/2 mL susp,ERrecon INJECT 4 ML INTRAMUSCULARLY EVERY TWO WEEKS - buPROPion XL (WELLBUTRIN XL) 300 mg 24 hr tablet take 1 tablet by mouth once daily in the morning - lamoTRIgine (LAMICTAL) 150 mg tablet Take 1 tablet by mouth once daily. - risperiDONE (RISPERDAL) 4 mg tablet Take 1 tablet by mouth daily at bedtime. - prazosin (MINIPRESS) 2 mg cap Take 1 capsule by mouth at bedtime as needed. - hydrOXYzine HCl (ATARAX) 25 mg tablet TAKE 1 TABLET BY MOUTH THREE TIMES DAILY NEEDED FOR ANXIETY - benztropine (COGENTIN) 0.5 mg tablet Take 1 tablet by mouth two times a day. - Fenofibrate (LOFIBRA) 54 mg tablet Facility-Administered Medications as of 07/17/2024 - risperiDONE Microspheres 12.5 mg (RisperDAL CONSTA) Problem List As Of Date 07/17/2024 Noted Resolved Schizoaffective disorder, bipolar type (HCC) [F*08/15/2022 Encounter for long-term (current) use of medica*06/26/2024 Encounter Status:Closed by MARCIA DODD on 07/17/24 [facility] 07-15-2024 [facility] Telephone (PSWSTR) LENY ISSA ([id number]) 1990 M Date Time Provider Department 07/15/24 KATHRINE HUNTER PSWSTR During your visit today, we recorded the following information about you: Marcia Dodd LPN 07/15/2024 4:12 PM Signed Message left for patient to call back about another pharmacy for rx IM injection. [facility] doesn't have it. FAVIOLA Noble Fonda, LPN 07/17/2024 11:26 AM Signed Please send New script to [facility] for Brand name IM Risperidone 12.5 mg. FAVIOLA Noble Nishi J, LATISHA.[facility] 07/17/2024 11:53 AM Signed Please notify patient that the prescription has been sent to the [facility]. Brenda Fuller RN 07/17/2024 12:14 PM Signed [facility] calling with the following regarding risperidone prescription received: 1) Current script written for ADAM but both generic and brand is on script. Pharmacy asking if provider wants generic or brand? 2) Generic is unavailable and they would need to order the brand name. 3) Pharmacy asking if the patient is administering this to himself, or who is administering it. This comes as a kit. Please call pharmacy with reply. JOE Daniel Nishi J, LATISHA.[facility] 07/17/2024 1:09 PM Signed Please call the pharmacy and let them know to order the brand name if generic is not available. Let them know that patient comes to our office for injection administration. Marcia Dodd LPN 07/17/2024 1:14 PM Signed Spoke with [facility] pharm, info given that was needed to fill RX for patient. Marcia Dodd LPN Allergies As of Date: 07/15/2024 (No Known Allergies) Date Reviewed: 02/20/2024 Reviewed by: Marcia Dodd LPN - Fully Assessed Prescriptions as of 07/17/2024 - risperiDONE Microspheres (RISPERDAL CONSTA) 12.5 mg/2 mL susp,ERrecon INJECT 4 ML INTRAMUSCULARLY EVERY TWO WEEKS - buPROPion XL (WELLBUTRIN XL) 300 mg 24 hr tablet take 1 tablet by mouth once daily in the morning - lamoTRIgine (LAMICTAL) 150 mg tablet Take 1 tablet by mouth once daily. - risperiDONE (RISPERDAL) 4 mg tablet Take 1 tablet by mouth daily at bedtime. - prazosin (MINIPRESS) 2 mg cap Take 1 capsule by mouth at bedtime as needed. - hydrOXYzine HCl (ATARAX) 25 mg tablet TAKE 1 TABLET BY MOUTH THREE TIMES DAILY NEEDED FOR ANXIETY - benztropine (COGENTIN) 0.5 mg tablet Take 1 tablet by mouth two times a day. - Fenofibrate (LOFIBRA) 54 mg tablet Facility-Administered Medications as of 07/17/2024 - risperiDONE Microspheres 12.5 mg (RisperDAL CONSTA) Problem List As Of Date 07/15/2024 Noted Resolved Schizoaffective disorder, bipolar type (HCC) [F*08/15/2022 Encounter for long-term (current) use of medica*06/26/2024 Encounter Status:Closed by MARCIA DODD on 07/15/24 [facility] CNOVon 07-09-2024 CNOV Office Visit (PSWSTR ) LENY ISSA ([id number]) 1990 M Date Time Provider Department 07/09/24 4:30 PM KATHRINE HUNTER PSWSTR During your visit today, we recorded the following information about you: Kathrine Hunter APRN.[facility] 07/09/2024 4:32 PM Signed Appointment was cancelled that day of the appointment due to a family emergency. Patient has been assisted in rescheduling his appointment. Referring Provider: KATHRINE HUNTER [[id number]] Allergies As of Date: 07/09/2024 (No Known Allergies) Date Reviewed: 02/20/2024 Reviewed by: Marcia Dodd LPN - Fully Assessed Reason for Visit: Appointment Rescheduled [1024] Primary Visit Diagnosis:APPOINTMENT CANCELLED Prescriptions as of 07/09/2024 - buPROPion XL (WELLBUTRIN XL) 300 mg 24 hr tablet take 1 tablet by mouth once daily in the morning - lamoTRIgine (LAMICTAL) 150 mg tablet Take 1 tablet by mouth once daily. - risperiDONE (RISPERDAL) 4 mg tablet Take 1 tablet by mouth daily at bedtime. - prazosin (MINIPRESS) 2 mg cap Take 1 capsule by mouth at bedtime as needed. - risperiDONE Microspheres (RISPERDAL CONSTA) 12.5 mg/2 mL susp,ERrecon INJECT 4 ML INTRAMUSCULARLY EVERY TWO WEEKS - hydrOXYzine HCl (ATARAX) 25 mg tablet TAKE 1 TABLET BY MOUTH THREE TIMES DAILY NEEDED FOR ANXIETY - benztropine (COGENTIN) 0.5 mg tablet Take 1 tablet by mouth two times a day. - Fenofibrate (LOFIBRA) 54 mg tablet Facility-Administered Medications as of 07/09/2024 - risperiDONE Microspheres 12.5 mg (RisperDAL CONSTA) Problem List As Of Date 07/09/2024 Noted Resolved Schizoaffective disorder, bipolar type (HCC) [F*08/15/2022 Encounter for long-term (current) use of medica*06/26/2024 Encounter Status:Closed by KATHRINE HUNTER on 07/09/24 [facility] 07-09-2024 [facility] Telephone (PSWSTR) LENY ISSA ([id number]) 1990 M Date Time Provider Department 07/09/24 KATHRINE HUNTER PSWSTR During your visit today, we recorded the following information about you: Juan Monae, RN 07/09/2024 8:18 AM Signed Pt reports he is scheduled with Kathrine today to get an injection. Reports his baby was born 2 days ago, was born early and is in NICU at [facility]. Pt is at home right now, but needs to return to [facility]. Asking if there is any way he can come in this morning to get the injection? Please phone patient with reply: [phone] Kathrine Hunter, DECORATING INSTRUCTOR.PLASTIC AND RECONSTRUCTIVE SURGEON 07/09/2024 8:24 AM Signed Okay for the patient to come in just for an injection based on when it works with the nurse schedule. He can cancel his visit with me today. Marcia Dodd LPN 07/09/2024 9:05 AM Signed Call placed to patient, will reschedule OV with provider and next IM injection. Patient will check my chart for day and time. Wants to check with [employer] re: refills, will message via [employer]. Marcia Dodd LPN Allergies As of Date: 07/09/2024 (No Known Allergies) Date Reviewed: 02/20/2024 Reviewed by: Marcia Dodd LPN - Fully Assessed Reason for Visit: Patient Question [5044] Prescriptions as of 07/09/2024 - buPROPion XL (WELLBUTRIN XL) 300 mg 24 hr tablet take 1 tablet by mouth once daily in the morning - lamoTRIgine (LAMICTAL) 150 mg tablet Take 1 tablet by mouth once daily. - risperiDONE (RISPERDAL) 4 mg tablet Take 1 tablet by mouth daily at bedtime. - prazosin (MINIPRESS) 2 mg cap Take 1 capsule by mouth at bedtime as needed. - risperiDONE Microspheres (RISPERDAL CONSTA) 12.5 mg/2 mL susp,ERrecon INJECT 4 ML INTRAMUSCULARLY EVERY TWO WEEKS - hydrOXYzine HCl (ATARAX) 25 mg tablet TAKE 1 TABLET BY MOUTH THREE TIMES DAILY NEEDED FOR ANXIETY - benztropine (COGENTIN) 0.5 mg tablet Take 1 tablet by mouth two times a day. - Fenofibrate (LOFIBRA) 54 mg tablet Problem List As Of Date 07/09/2024 Noted Resolved Schizoaffective disorder, bipolar type (HCC) [F*08/15/2022 Encounter for long-term (current) use of medica*06/26/2024 Encounter Status:Closed by MARCIA DODD on 07/09/24 [facility] 06-28-2024 [facility] Telephone (PSWSTR) LENY ISSA ([id number]) 1990 M Date Time Provider Department 06/28/24 KATHRINE HUNTER PSWSTR During your visit today, we recorded the following information about you: Marcia Dodd LPN 06/28/2024 9:37 AM Signed Would it be possible for you to add a MAR to patient chart for me? Marcia Dodd LPN Allergies As of Date: 06/28/2024 (No Known Allergies) Date Reviewed: 02/20/2024 Reviewed by: Marcia Dodd LPN - Fully Assessed Primary Visit Diagnosis:Schizoaffect montse disorder, bipolar type (HCC) [F25.0] Order(s):risperiDONE Microspheres 12.5 mg (RisperDAL CONSTA)Disp: Rfl: Prescriptions as of 07/09/2024 - buPROPion XL (WELLBUTRIN XL) 300 mg 24 hr tablet take 1 tablet by mouth once daily in the morning - lamoTRIgine (LAMICTAL) 150 mg tablet Take 1 tablet by mouth once daily. - risperiDONE (RISPERDAL) 4 mg tablet Take 1 tablet by mouth daily at bedtime. - prazosin (MINIPRESS) 2 mg cap Take 1 capsule by mouth at bedtime as needed. - risperiDONE Microspheres (RISPERDAL CONSTA) 12.5 mg/2 mL susp,ERrecon INJECT 4 ML INTRAMUSCULARLY EVERY TWO WEEKS - hydrOXYzine HCl (ATARAX) 25 mg tablet TAKE 1 TABLET BY MOUTH THREE TIMES DAILY NEEDED FOR ANXIETY - benztropine (COGENTIN) 0.5 mg tablet Take 1 tablet by mouth two times a day. - Fenofibrate (LOFIBRA) 54 mg tablet Facility-Administered Medications as of 07/09/2024 - risperiDONE Microspheres 12.5 mg (RisperDAL CONSTA) Problem List As Of Date 06/28/2024 Noted Resolved Schizoaffective disorder, bipolar type (HCC) [F*08/15/2022 Encounter for long-term (current) use of medica*06/26/2024 Prescriptions ordered this encounter Disp Refills Start End RISPERIDONE MICROSPHERES ER 12.5 MG/* 07/09/2024 10/29/2024 Route: INTRAMUSCULA Encounter Status:Closed by KATHRINE HUNTER on 07/09/24 [facility] CNOVon 06-25-2024 CNOV Office Visit (PSWSTR ) LENY ISSA ([id number]) 1990 M Date Time Provider Department 06/25/24 4:30 PM NURSE [facility] PSWSTR During your visit today, we recorded the following information about you: Marcia Dodd LPN 07/09/2024 3:42 PM Signed Patient arrives for Risperdal injection per Kathrine Hunter CNP. Patient identified by name and . Medication brought to visit by patient. Patient has no questions or concerns at this time regarding medication. SE of medication given, verbalized understanding and agrees to proceed with treatment. Injection given, tolerated well. Patient reminded of next visit on 07/09/24 @ 4:30 in person with provider. Marcia Dodd LPN Allergies As of Date: 06/25/2024 (No Known Allergies) Date Reviewed: 02/20/2024 Reviewed by: Marcia Dodd LPN - Fully Assessed Reason for Visit: Imm/Inj [58] Primary Visit Diagnosis:Schizoaffect montse disorder, bipolar type (HCC) [F25.0] Other Visit Diagnosis:Encounter for long-term (current) use of medications [Z79.899] Prescriptions as of 07/09/2024 - buPROPion XL (WELLBUTRIN XL) 300 mg 24 hr tablet take 1 tablet by mouth once daily in the morning - lamoTRIgine (LAMICTAL) 150 mg tablet Take 1 tablet by mouth once daily. - risperiDONE (RISPERDAL) 4 mg tablet Take 1 tablet by mouth daily at bedtime. - prazosin (MINIPRESS) 2 mg cap Take 1 capsule by mouth at bedtime as needed. - risperiDONE Microspheres (RISPERDAL CONSTA) 12.5 mg/2 mL susp,ERrecon INJECT 4 ML INTRAMUSCULARLY EVERY TWO WEEKS - hydrOXYzine HCl (ATARAX) 25 mg tablet TAKE 1 TABLET BY MOUTH THREE TIMES DAILY NEEDED FOR ANXIETY - benztropine (COGENTIN) 0.5 mg tablet Take 1 tablet by mouth two times a day. - Fenofibrate (LOFIBRA) 54 mg tablet Facility-Administered Medications as of 07/09/2024 - risperiDONE Microspheres 12.5 mg (RisperDAL CONSTA) Problem List As Of Date 06/25/2024 Noted Resolved Schizoaffective disorder, bipolar type (HCC) [F*08/15/2022 Encounter Status:Closed by MARCIA DODD on 07/09/24 [facility] CNOVon 06-11-2024 CNOV Office Visit (PSWSTR ) LENY ISSA ([id number]) 1990 M Date Time Provider Department 06/11/24 4:00 PM NURSE [facility] PSWSTR During your visit today, we recorded the following information about you: Marcia Dodd LPN 06/11/2024 5:20 PM Signed Patient arrives for Risperdal injection per Katrhine Hunter CNP. Patient identified by name and . Medication brought to visit by patient. Patient has no questions or concerns at this time regarding medication. SE of medication given, verbalized understanding and agrees to proceed with treatment. Injection given, tolerated well. Next visit 06/25/24 @ 4:30. Marcia Dodd LPN Referring Provider: KATHRINE UHNTER [[id number]] Allergies As of Date: 06/11/2024 (No Known Allergies) Date Reviewed: 02/20/2024 Reviewed by: Marcia Dodd LPN - Fully Assessed Primary Visit Diagnosis:Schizoaffect montse disorder, bipolar type (HCC) [F25.0] Prescriptions as of 06/11/2024 - prazosin (MINIPRESS) 2 mg cap Take 1 capsule by mouth once daily at bedtime - risperiDONE (RISPERDAL) 4 mg tablet TAKE 1 TABLET BY MOUTH ONCE DAILY AT BEDTIME - hydrOXYzine HCl (ATARAX) 25 mg tablet TAKE 1 TABLET BY MOUTH THREE TIMES DAILY NEEDED FOR ANXIETY - benztropine (COGENTIN) 0.5 mg tablet Take 1 tablet by mouth two times a day. - risperiDONE Microspheres (RISPERDAL CONSTA) 12.5 mg/2 mL susp,ERrecon INJECT 4 ML INTRAMUSCULARLY EVERY TWO WEEKS - buPROPion XL (WELLBUTRIN XL) 300 mg 24 hr tablet take 1 tablet by mouth once daily in the morning - lamoTRIgine (LAMICTAL) 150 mg tablet Take 1 tablet by mouth once daily. - Fenofibrate (LOFIBRA) 54 mg tablet Facility-Administered Medications as of 06/11/2024 - risperiDONE Microspheres 25 mg (RisperDAL CONSTA) Problem List As Of Date 06/11/2024 Noted Resolved Schizoaffective disorder, bipolar type (HCC) [F*08/15/2022 Encounter Status:Closed by MARCIA DODD on 06/11/24 [facility] CNOVon 05-28-2024 CNOV Office Visit (PSWSTR ) LENY ISSA ([id number]) 1990 M Date Time Provider Department 05/28/24 8:00 AM KATHRINE HUNTER PSWSTR During your visit today, we recorded the following information about you: Kathrine Hunter, DECORATING INSTRUCTOR.PLASTIC AND RECONSTRUCTIVE SURGEON 05/28/2024 8:19 AM Signed Patient did not come in for his appointment with the provider today. Referring Provider: KATHRINE HUNTER [[id number]] Allergies As of Date: 05/28/2024 (No Known Allergies) Date Reviewed: 02/20/2024 Reviewed by: Marcia Dodd LPN - Fully Assessed Reason for Visit: No Show [1558] Primary Visit Diagnosis:NO SHOW Prescriptions as of 05/28/2024 - risperiDONE (RISPERDAL) 4 mg tablet TAKE 1 TABLET BY MOUTH ONCE DAILY AT BEDTIME - hydrOXYzine HCl (ATARAX) 25 mg tablet TAKE 1 TABLET BY MOUTH THREE TIMES DAILY NEEDED FOR ANXIETY - benztropine (COGENTIN) 0.5 mg tablet Take 1 tablet by mouth two times a day. - risperiDONE Microspheres (RISPERDAL CONSTA) 12.5 mg/2 mL susp,ERrecon INJECT 4 ML INTRAMUSCULARLY EVERY TWO WEEKS - buPROPion XL (WELLBUTRIN XL) 300 mg 24 hr tablet take 1 tablet by mouth once daily in the morning - lamoTRIgine (LAMICTAL) 150 mg tablet Take 1 tablet by mouth once daily. - Fenofibrate (LOFIBRA) 54 mg tablet Facility-Administered Medications as of 05/28/2024 - risperiDONE Microspheres 25 mg (RisperDAL CONSTA) Problem List As Of Date 05/28/2024 Noted Resolved Schizoaffective disorder, bipolar type (HCC) [F*08/15/2022 Encounter Status:Closed by KATHRINE HUNTER on 05/28/24 [facility] CNOVon 05-14-2024 CNOV Office Visit (PSWSTR ) LENY ISSA ([id number]) 1990 M Date Time Provider Department 05/14/24 4:30 PM NURSE [facility] PS[facility] During your visit today, we recorded the following information about you: Marcia Dodd LPN 05/20/2024 11:15 AM Signed Patient arrives for Risperdal injection per Kathrine Hunter CNP. Patient has no complaints or concerns today about injection. Patient brought medication to visit, is explaining new insurance has dropped cost to 10$ and is very happy about that. 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 Patient education given on SE of medication, patient verbalized understanding and agrees to proceed with treatment. Injection given and tolerated well. Next appointment scheduled for 05/28/2024 @ 8 am. Marcia Dodd LPN Allergies As of Date: 05/14/2024 (No Known Allergies) Date Reviewed: 02/20/2024 Reviewed by: Marcia Dodd LPN - Fully Assessed Primary Visit Diagnosis:Schizoaffect montse disorder, bipolar type (HCC) [F25.0] Prescriptions as of 05/20/2024 - hydrOXYzine HCl (ATARAX) 25 mg tablet TAKE 1 TABLET BY MOUTH THREE TIMES DAILY NEEDED FOR ANXIETY - benztropine (COGENTIN) 0.5 mg tablet Take 1 tablet by mouth two times a day. - risperiDONE Microspheres (RISPERDAL CONSTA) 12.5 mg/2 mL susp,ERrecon INJECT 4 ML INTRAMUSCULARLY EVERY TWO WEEKS - prazosin (MINIPRESS) 2 mg cap Take 1 capsule by mouth daily at bedtime. - buPROPion XL (WELLBUTRIN XL) 300 mg 24 hr tablet take 1 tablet by mouth once daily in the morning - lamoTRIgine (LAMICTAL) 150 mg tablet Take 1 tablet by mouth once daily. - risperiDONE (RISPERDAL) 4 mg tablet Take 1 tablet by mouth daily at bedtime. - Fenofibrate (LOFIBRA) 54 mg tablet Facility-Administered Medications as of 05/20/2024 - risperiDONE Microspheres 25 mg (RisperDAL CONSTA) Problem List As Of Date 05/14/2024 Noted Resolved Schizoaffective disorder, bipolar type (HCC) [F*08/15/2022 Encounter Status:Closed by MARCIA DODD on 05/20/24 [facility] CNOVon 04-30-2024 CNOV Office Visit (PSWSTR ) LENY ISSA ([id number]) 1990 M Date Time Provider Department 04/30/24 4:30 PM [facility] During your visit today, we recorded the following information about you: Blood pressure Weight 136/70 108.6 kg Marcia Dodd LPN 04/30/2024 5:31 PM Addendum Patient arrives for Risperdal injection per Kathrine Hunter CNP. Patient has no complaints or concerns at this time. Brought own medication. Patient instructed on SE of medication, verbalized understanding and agrees to proceed with treatment. Injection tolerated well. Next appointment scheduled for 05/14/2024 @ 4:30. FAVIOLA Noble Fonda, LPN 04/30/2024 5:41 PM Signed Patient arrives for Risperdal injection per Kathrine Hunter CNP. Patient has no complaints or concerns today about injection. Patient brought medication to visit. Patient education given on SE of medication, patient verbalized understanding and agrees to proceed with treatment. Injection given and tolerated well. Next appointment scheduled for 05/14/2024 @ 4:30. Marcia Dodd LPN Allergies As of Date: 04/30/2024 (No Known Allergies) Date Reviewed: 02/20/2024 Reviewed by: Marcia Dodd LPN - Fully Assessed Reason for Visit: Imm/Inj [58] Primary Visit Diagnosis:Schizoaffect montse disorder, bipolar type (HCC) [F25.0] Prescriptions as of 04/30/2024 - hydrOXYzine HCl (ATARAX) 25 mg tablet TAKE 1 TABLET BY MOUTH THREE TIMES DAILY NEEDED FOR ANXIETY - benztropine (COGENTIN) 0.5 mg tablet Take 1 tablet by mouth two times a day. - risperiDONE Microspheres (RISPERDAL CONSTA) 12.5 mg/2 mL susp,ERrecon INJECT 4 ML INTRAMUSCULARLY EVERY TWO WEEKS - prazosin (MINIPRESS) 2 mg cap Take 1 capsule by mouth daily at bedtime. - buPROPion XL (WELLBUTRIN XL) 300 mg 24 hr tablet take 1 tablet by mouth once daily in the morning - lamoTRIgine (LAMICTAL) 150 mg tablet Take 1 tablet by mouth once daily. - risperiDONE (RISPERDAL) 4 mg tablet Take 1 tablet by mouth daily at bedtime. - Fenofibrate (LOFIBRA) 54 mg tablet Facility-Administered Medications as of 04/30/2024 - risperiDONE Microspheres 25 mg (RisperDAL CONSTA) Problem List As Of Date 04/30/2024 Noted Resolved Schizoaffective disorder, bipolar type (HCC) [F*08/15/2022 Other instructions from your clinician: Patient arrives for Risperdal injection per Kathrine Hunter CNP. Patient has no complaints or concerns at this time. Brought own medication. Patient instructed on SE of medication, verbalized understanding and agrees to proceed with treatment. Injection tolerated well. Next appointment scheduled for 05/14/2024 @ 4:30. Marcia Dodd LPN Disposition: Return in about 2 weeks (around 05/14/2024) for IM Injection. Follow-up and Disposition History for Encounter Date Provider Department Center 04/30/2024 [id number] [facility] Encounter Status:Closed by MARCIA DODD on 04/30/24 [facility] CNOVon 2024 CNOV Office Visit (PSWSTR ) LENY ISSA ([id number]) 1990 M Date Time Provider Department 03/19/24 4:30 PM NURSE [facility] During your visit today, we recorded the following information about you: Blood pressure 148/86 Marcia Dodd LPN 2024 5:22 PM Signed Patient arrives for Risperdal injection per Kathrine Hunter CNP. Patient has no complaints or concerns at this time. Brought own medication. Patient instructed on SE of medication, verbalized understanding and agrees to proceed with treatment. Injection tolerated well. Next appointment scheduled for 04/01/24 @ 4:30. Marcia Dodd LPN Allergies As of Date: 2024 (No Known Allergies) Date Reviewed: 02/20/2024 Reviewed by: Marcia Dodd LPN - Fully Assessed Reason for Visit: Imm/Inj [58] Cmt: Schizoaffective disorder, bipolar type Primary Visit Diagnosis:Schizoaffect montse disorder, bipolar type (HCC) [F25.0] Prescriptions as of 2024 - benztropine (COGENTIN) 0.5 mg tablet Take 1 tablet by mouth two times a day. - risperiDONE Microspheres (RISPERDAL CONSTA) 12.5 mg/2 mL susp,ERrecon INJECT 4 ML INTRAMUSCULARLY EVERY TWO WEEKS - prazosin (MINIPRESS) 2 mg cap Take 1 capsule by mouth daily at bedtime. - buPROPion XL (WELLBUTRIN XL) 300 mg 24 hr tablet take 1 tablet by mouth once daily in the morning - lamoTRIgine (LAMICTAL) 150 mg tablet Take 1 tablet by mouth once daily. - risperiDONE (RISPERDAL) 4 mg tablet Take 1 tablet by mouth daily at bedtime. - Fenofibrate (LOFIBRA) 54 mg tablet Facility-Administered Medications as of 2024 - risperiDONE Microspheres 25 mg (RisperDAL CONSTA) Problem List As Of Date 2024 Noted Resolved Schizoaffective disorder, bipolar type (HCC) [F*08/15/2022 Encounter Status:Closed by MARCIA DODD on 03/19/24 [facility] JOSÉ MIGUELKatiuska 03-06-2024 CNPN Telephone (PSWSTR) LENY ISSA ([id number]) 1990 M Date Time Provider Department 03/06/24 KATHRINE HUNTER PSWSTR During your visit today, we recorded the following information about you: Marcia Dodd LPN 03/06/2024 9:56 AM Signed Patient has nurse appt every 2 week until next ov. Can you place new admin order for injection. Marcia Dodd LPN Allergies As of Date: 03/06/2024 (No Known Allergies) Date Reviewed: 02/20/2024 Reviewed by: Marcia Dodd LPN - Fully Assessed Reason for Visit: Orders [681] Primary Visit Diagnosis:Schizoaffect montse disorder, bipolar type (HCC) [F25.0] Order(s):risperiDONE Microspheres 25 mg (RisperDAL CONSTA)Disp: Rfl: Prescriptions as of 03/06/2024 - benztropine (COGENTIN) 0.5 mg tablet Take 1 tablet by mouth two times a day. - risperiDONE Microspheres (RISPERDAL CONSTA) 12.5 mg/2 mL susp,ERrecon INJECT 4 ML INTRAMUSCULARLY EVERY TWO WEEKS - prazosin (MINIPRESS) 2 mg cap Take 1 capsule by mouth daily at bedtime. - buPROPion XL (WELLBUTRIN XL) 300 mg 24 hr tablet take 1 tablet by mouth once daily in the morning - lamoTRIgine (LAMICTAL) 150 mg tablet Take 1 tablet by mouth once daily. - risperiDONE (RISPERDAL) 4 mg tablet Take 1 tablet by mouth daily at bedtime. - Fenofibrate (LOFIBRA) 54 mg tablet Facility-Administered Medications as of 03/06/2024 - risperiDONE Microspheres 25 mg (RisperDAL CONSTA) Problem List As Of Date 03/06/2024 Noted Resolved Schizoaffective disorder, bipolar type (HCC) [F*08/15/2022 Prescriptions ordered this encounter Disp Refills Start End RISPERIDONE MICROSPHERES ER 12.5 MG/* 03/06/2024 06/12/2024 Route: INTRAMUSCULA Encounter Status:Closed by KATHRINE HUNTER on 03/06/24 [facility] CNOVon 03-05-2024 CNOV Office Visit (PSWSTR ) LENY ISSA ([id number]) 1990 M Date Time Provider Department 03/05/24 4:00 PM NURSE [facility] PS[facility] During your visit today, we recorded the following information about you: Marcia Dodd LPN 03/08/2024 3:17 PM Signed Patient arrives for Risperdal injection per Kathrine Hunter CNP. Patient has no complaints or concerns at this time. Brought own medication. Patient instructed on SE of medication, verbalized understanding and agrees to proceed with treatment. Injection tolerated well. Marcia Dodd LPN Referring Provider: KATHRINE HUNTER [[id number]] Allergies As of Date: 03/05/2024 (No Known Allergies) Date Reviewed: 02/20/2024 Reviewed by: Marcia Dodd LPN - Fully Assessed Reason for Visit: Imm/Inj [58] Cmt: Schizoaffective disorder, bipolar type Primary Visit Diagnosis:Schizoaffect montse disorder, bipolar type (HCC) [F25.0] Prescriptions as of 03/08/2024 - benztropine (COGENTIN) 0.5 mg tablet Take 1 tablet by mouth two times a day. - risperiDONE Microspheres (RISPERDAL CONSTA) 12.5 mg/2 mL susp,ERrecon INJECT 4 ML INTRAMUSCULARLY EVERY TWO WEEKS - prazosin (MINIPRESS) 2 mg cap Take 1 capsule by mouth daily at bedtime. - buPROPion XL (WELLBUTRIN XL) 300 mg 24 hr tablet take 1 tablet by mouth once daily in the morning - lamoTRIgine (LAMICTAL) 150 mg tablet Take 1 tablet by mouth once daily. - risperiDONE (RISPERDAL) 4 mg tablet Take 1 tablet by mouth daily at bedtime. - Fenofibrate (LOFIBRA) 54 mg tablet Facility-Administered Medications as of 03/08/2024 - risperiDONE Microspheres 25 mg (RisperDAL CONSTA) Problem List As Of Date 03/05/2024 Noted Resolved Schizoaffective disorder, bipolar type (HCC) [F*08/15/2022 Disposition: Return in about 2 weeks (around 2024) for injection. Follow-up and Disposition History for Encounter Date Provider Department Center 03/05/2024 [id number] [facility] Encounter Status:Closed by MARCIA DODD on 03/08/24 [facility] CNOVon 02-20-2024 CNOV Office Visit (PSWSTR ) LENY ISSA ([id number]) 1990 M Date Time Provider Department 02/20/24 8:00 AM KATHRINE HUNTER During your visit today, we recorded the following information about you: Pulse Respiration Blood pressure Weight 64/minute 16/minute 140/80 108 kg Kathrine Hunter APRN.CNP 02/26/2024 11:02 PM Signed FOLLOW UP - PSYCHIATRIC PROGRESS NOTE PATIENT: Leny Issa DATE: February 20, 2024 Visit Type:In person All information is from Patient report except when noted. This evaluation is NOT intended for forensic, disability or child custody purposes. Kathrine Ramon APRN.CNP, personally performed the services described in this documentation. All medical record entries made by the LATISHA student were at my direction and in my presence. I have reviewed the chart and discharge instructions (if applicable) and agree that the record reflects my personal performance and is accurate and complete. Kathrine Hunter APRN.PLASTIC AND RECONSTRUCTIVE SURGEON February 26, 2024 10:58 PM CC: Presenting today for follow up regarding psychiatric medication management. HPI: Treatment Plan from Last Visit on 11/17/2023: TREATMENT PLAN: Continue psychiatric medications at the same dose. Continue Risperdal IM injections every 2 weeks. Order monitoring lab work at the next appointment. Today Tony shares that he has been doing way better on the new generic Risperdal. States it wasn't good at first in November but by end of December it has been getting better and is as effective as the previous brand name. States he is happy with the cost savings of almost $200. Has been consistently receiving his injections Q2 weeks. Shares that he and found out 2 months ago they are expecting a baby boy in August. is approximately 16 weeks along. doing well health teresa with the . Denies any worries or stress about the .Uses acronym HALT: (hungry, angry, lonely and tired) to check in with himself and make sure he is doing ok. Discussed how anxiety can affect the dad as well as the mom. Discussed increasing frequency of mental health visits during the period or see a counselor. Doesn't have one currently but is open to considering it. Discussed importance of prioritizing his needs such as nutrition and sleep to make sure he is in a good position to care for the baby along with his . Mom and mother in law are planning to watch the baby. Has some concerns about mother in regards to boundary concerns and behaviors. 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 Discussed setting boundaries and expectations and have those discussions prior to the baby being born. Sleeping well, 6-8 hours per night. CPAP working good for him. No nightmares or incontinence. Had some daytime sleepiness several months ago which has resolved. Taking Prazosin and Risperdal at HS as ordered. Inquires about decreasing dose of Prazosin? Denies delusional thinking. Eating better. Trying to avoid processed foods. Eating more fresh foods and less carbs. Has h/o binge eating/overeating but reports he has not been doing that. Weight is down 3 lbs from last visit. Reports he had an episode of chest pain last month-went to ER. Everything determined to be normal. Attributed it to palpitations from too much caffeine. Reported that he drank coffee and energy drinks that day. Trying to be more mindful of that and limiting caffeine. Interval Progress: Improved PATIENT DATA: Generalized Anxiety Disorder Scale (CLYDE-7) 09/05/2023 09/19/2023 02/20/2024 CLYDE - 7 SCORES Score 1 1 0 (0-4) minimal anxiety, (5-9) mild anxiety, (10-14) moderate anxiety, (15-21) severe anxiety Patient Health Questionnaire (PHQ-9) 09/05/2023 09/19/2023 02/20/2024 PHQ-9 Score 4 1 2 (0-4) minimal depression, (5-9) mild depression, (10-14) moderate depression, (15-19) moderately severe depression, (20-27) severe depression History reviewed. No pertinent past medical history. No past surgical history on file. ALLERGIES No Known Allergies Current Outpatient Medications on File Prior to Visit Medication Sig risperiDONE Microspheres (RISPERDAL CONSTA) 12.5 mg/2 mL susp,ERrecon INJECT 4 ML INTRAMUSCULARLY EVERY TWO WEEKS prazosin (MINIPRESS) 2 mg cap Take 1 capsule by mouth daily at bedtime. lamoTRIgine (LAMICTAL) 150 mg tablet Take 1 tablet by mouth once daily. risperiDONE (RISPERDAL) 4 mg tablet Take 1 tablet by mouth daily at bedtime. benztropine (COGENTIN) 0.5 mg tablet Take 1 tablet by mouth two times a day. buPROPion XL (WELLBUTRIN XL) 300 mg 24 hr tablet take 1 tablet by mouth once daily in the morning Fenofibrate (LOFIBRA) 54 mg tablet No current facility-administered medications on file p (more content not included)... Normal [facility] Laura 01-23-2024 CNOV Office Visit (PSWSTR ) LENY ISSA ([id number]) 1990 M Date Time Provider Department 01/23/24 4:30 PM NURSE [facility] PSWSTR During your visit today, we recorded the following information about you: Marcia Dodd LPN 01/23/2024 4:57 PM Signed Patient arrived with his injectable medication, Risperidone, per Kathrine Hunter CNP. Patient denies side effect with medication at this time. Patient given 4 ml IM every 2 weeks. IM given in bilateral arms Tolerated well, no complaints noted. Nurse visit scheduled for 2 weeks. 02/13/2024 @ 4:30. Patient will come right after work. Marcia Dodd LPN Referring Provider: KATHRINE HUNTER [[id number]] Allergies As of Date: 01/23/2024 (No Known Allergies) Date Reviewed: 01/23/2024 Reviewed by: Marcia Dodd LPN - Fully Assessed Reason for Visit: Imm/Inj [58] Cmt: Bipolar Primary Visit Diagnosis:Schizoaffect montse disorder, bipolar type (HCC) [F25.0] Prescriptions as of 01/31/2024 - risperiDONE Microspheres (RISPERDAL CONSTA) 12.5 mg/2 mL susp,ERrecon INJECT 4 ML INTRAMUSCULARLY EVERY TWO WEEKS - prazosin (MINIPRESS) 2 mg cap Take 1 capsule by mouth daily at bedtime. - lamoTRIgine (LAMICTAL) 150 mg tablet Take 1 tablet by mouth once daily. - risperiDONE (RISPERDAL) 4 mg tablet Take 1 tablet by mouth daily at bedtime. - benztropine (COGENTIN) 0.5 mg tablet Take 1 tablet by mouth two times a day. - buPROPion XL (WELLBUTRIN XL) 300 mg 24 hr tablet take 1 tablet by mouth once daily in the morning - Fenofibrate (LOFIBRA) 54 mg tablet Problem List As Of Date 01/23/2024 Noted Resolved Schizoaffective disorder, bipolar type (HCC) [F*08/15/2022 Encounter Status:Closed by MARCIA DODD on 01/23/24 Normal [facility] 12 Lead EKGon 01-16-2024 12 Lead EKG [facility] [address] [place] [address] 12 Lead EKG 01/16/24911 MR#: [id number] Acct: [id number] Name: LENY ISSA Rep #: [id number] : 1990 33 From: Julius Tomlinson MD Attending Dr: Status: DEP ER Ordering Dr: Jeffrey Fregoso DO Date: 01/16/24 Location: ED Sex: M C Admitted: Test Reason : PALP Blood Pressure : / mmHG Vent. Rate : 087 BPM Atrial Rate : 087 BPM P-R Int : 190 ms QRS Dur : 080 ms QT Int : 332 ms P-R-T Axes : 036 013 008 degrees QTc Int : 399 ms Normal sinus rhythm Normal ECG Confirmed by Julius Tomlinson ([id number]), design editor SLOANE MCPHERSON ([id number]) on 01/17/2024 9:23:40 AM Referred By: JOANN/CRSI Confirmed By:Julius Tomlinson 01/17/24922 Date Julius Tomlinson MD CC: Dr. Khalida Ann DO; Dr. Jeffrey Fregoso DO Signed Normal [facility] Basic Metabolic Profile (BMP )on 01-16-2024 BUN/CRE 10.2 RATIO Normal -20 [facility] Comment on above: Order Comment: 1 Y Performed By: #### L 506.0400, L500.2500, L100.0100, L501.5425, L501.9520, L501.45476 #### [facility] [address] [place], [address] CA,Total 9.5 mg/dL Normal 8.5-10.1 [facility] Comment on above: Order Comment: 1 Y Performed By: #### L 506.0400, L500.2500, L100.0100, L501.5425, L501.9520, L501.47186 #### [facility] [address] [place], [address] Chloride [Moles/Vol] 108 mmol/L High 98-107 [facility] Comment on above: Order Comment: 1 Y Performed By: #### L 506.0400, L500.2500, L100.0100, L501.5425, L501.9520, L501.57195 #### [facility] [address] [place], [address] CO2 [Moles/Vol] 26.0 mmol/L Normal 21.0-32.0 [facility] Comment on above: Order Comment: 1 Y Performed By: #### L 506.0400, L500.2500, L100.0100, L501.5425, L501.9520, L501.76371 #### [facility] [address] [place], [address] Creatinine [Mass/Vol] 1.18 mg/dL Normal 0.70-1.30 [facility] Comment on above: Order Comment: 1 Y Result Comment: The validity of the calculated GFR GFRAA in patients over 70 years has not been determined. Clinical correlation is essential. Performed By: #### L 506.0400, L500.2500, L100.0100, L501.5425, L501.9520, L501.23449 #### [facility] [address] [place], [address] ECRCL 101.79 ml/min Normal [facility] Comment on above: Order Comment: 1 Y Performed By: #### L 506.0400, L500.2500, L100.0100, L501.5425, L501.9520, L501.69072 #### [facility] [address] [place], [address] EST GFR - AA 91 mL/min Normal >60 [facility] Comment on above: Order Comment: 1 Y Result Comment: Afri can Northern [place] GFR Calc Performed By: #### L 506.0400, L500.2500, L100.0100, L501.5425, L501.9520, L501.43048 #### [facility] [address] [place], [address] GAP 6 Normal 5-15 [facility] Comment on above: Order Comment: 1 Y Performed By: #### L 506.0400, L500.2500, L100.0100, L501.5425, L501.9520, L501.41633 #### [facility] [address] [place], [address] GFR/1.73 sq M.predicted among non-blacks MDRD (S/P/Bld) [Vol rate/Area] 75 mL/min/{1.73_m2} Normal >60 [facility] Comment on above: Order Comment: 1 Y Result Comment: Non- GFR Calc Performed By: #### L 506.0400, L500.2500, L100.0100, L501.5425, L501.9520, L501.91693 #### [facility] [address] [place], [address] Glucose [Mass/Vol] 119 mg/dL High 74-106 [facility] Comment on above: Order Comment: 1 Y Result Comment: Fast ing Glucose result from 100 to 125 mg/dL suggests IMPAIRED HOMEOSTASIS per A.D.A. criteria. Performed By: #### L 506.0400, L500.2500, L100.0100, L501.5425, L501.9520, L501.56139 #### [facility] [address] [place], [address] Potassium [Moles/Vol] 3.9 mmol/L Normal 3.5-5.1 [facility] Comment on above: Order Comment: 1 Y Performed By: #### L 506.0400, L500.2500, L100.0100, L501.5425, L501.9520, L501.75224 #### [facility] [address] [place], [address] Sodium [Moles/Vol] 140 mmol/L Normal 136-145 [facility] Comment on above: Order Comment: 1 Y Performed By: #### L 506.0400, L500.2500, L100.0100, L501.5425, L501.9520, L501.46899 #### [facility] [address] [place], [address] Urea nitrogen [Mass/Vol] 12 mg/dL Normal 7-18 [facility] Comment on above: Order Comment: 1 Y Performed By: #### L 506.0400, L500.2500, L100.0100, L501.5425, L501.9520, L501.08493 #### [facility] [address] [place], [address] CBC W/Diff, Automatedon 01-01 Absolute Lymph 1.57 X10 3/uL Normal 0.83-4.51 [facility] Comment on above: Performed By: #### L 506.0400, L500.2500, L100.0100, L501.5425, L501.9520, L501.83814 #### [facility] [address] [place], [address] Absolute Neut 5.0 X10 3/uL Normal 2.0-7.7 [facility] Comment on above: Performed By: #### L 506.0400, L500.2500, L100.0100, L501.5425, L501.9520, L501.14366 #### [facility] [address] [place], [address] Basophils/100 WBC (Bld) 0.4 % Normal 0-1 [facility] Comment on above: Performed By: #### L 506.0400, L500.2500, L100.0100, L501.5425, L501.9520, L501.59888 #### [facility] [address] [place], [address] Eosinophils/100 WBC (Bld) 1.5 % Normal 0-5 [facility] Comment on above: Performed By: #### L 506.0400, L500.2500, L100.0100, L501.5425, L501.9520, L501.62700 #### [facility] [address] [place], [address] Erythrocyte distribution width (RBC) [Ratio] 12.5 % Normal 11.6-14.6 [facility] Comment on above: Performed By: #### L 506.0400, L500.2500, L100.0100, L501.5425, L501.9520, L501.48210 #### [facility] [address] [place], [address] Hematocrit (Bld) [Volume fraction] 38.8 % Low 40-54 [facility] Comment on above: Performed By: #### L 506.0400, L500.2500, L100.0100, L501.5425, L501.9520, L501.78448 #### [facility] [address] [place], [address] Hemoglobin (Bld) [Mass/Vol] 13.6 g/dL Normal 13.0-16.5 [facility] Comment on above: Performed By: #### L 506.0400, L500.2500, L100.0100, L501.5425, L501.9520, L501.67834 #### [facility] [address] [place], [address] IG% 0.100 Normal 0.0-0.9 [facility] Comment on above: Result Comment: IG% - Immature Granulocytes (promyelocytes, myelocytes and metamyelocytes) > 1% indicates that a LEFT SHIFT is Present. Performed By: #### L 506.0400, L500.2500, L100.0100, L501.5425, L501.9520, L501.19048 #### [facility] [address] [place], [address] Lymphocytes/100 WBC (Bld) 22.1 % Normal 19-41 [facility] Comment on above: Performed By: #### L 506.0400, L500.2500, L100.0100, L501.5425, L501.9520, L501.67295 #### [facility] [address] [place], [address] MCH (RBC) [Entitic mass] 29.6 pg Normal 27.0-32.0 [facility] Comment on above: Performed By: #### L 506.0400, L500.2500, L100.0100, L501.5425, L501.9520, L501.25828 #### [facility] [address] [place], [address] MCHC (RBC) [Mass/Vol] 35.1 g/dL Normal 32-36 [facility] Comment on above: Performed By: #### L 506.0400, L500.2500, L100.0100, L501.5425, L501.9520, L501.31248 #### [facility] [address] [place], [address] MCV (RBC) [Entitic vol] 84.3 fL Normal 80-94 [facility] Comment on above: Performed By: #### L 506.0400, L500.2500, L100.0100, L501.5425, L501.9520, L501.15453 #### [facility] [address] [place], [address] Monocytes/100 WBC (Bld) 5.2 % Normal 0-10 [facility] Comment on above: Performed By: #### L 506.0400, L500.2500, L100.0100, L501.5425, L501.9520, L501.74102 #### [facility] [address] [place], [address] Neutrophils/100 WBC (Bld) 70.7 % High 47-70 [facility] Comment on above: Performed By: #### L 506.0400, L500.2500, L100.0100, L501.5425, L501.9520, L501.41779 #### [facility] [address] [place], [address] Nucleated RBC (Bld) [#/Vol] 0 10*3/uL Normal 0-5 [facility] Comment on above: Performed By: #### L 506.0400, L500.2500, L100.0100, L501.5425, L501.9520, L501.32088 #### [facility] [address] [place], [address] Platelet mean volume (Bld) [Entitic vol] 8.7 fL Normal 6.2-12.0 [facility] Comment on above: Performed By: #### L 506.0400, L500.2500, L100.0100, L501.5425, L501.9520, L501.23794 #### [facility] [address] [place], [address] Platelets (Bld) [#/Vol] 185 10*3/uL Normal 150-450 [facility] Comment on above: Performed By: #### L 506.0400, L500.2500, L100.0100, L501.5425, L501.9520, L501.06281 #### [facility] [address] [place], [address] RBC (Bld) [#/Vol] 4.60 10*6/uL Normal 4.6-6.2 [facility] Comment on above: Performed By: #### L 506.0400, L500.2500, L100.0100, L501.5425, L501.9520, L501.45499 #### [facility] [address] [place], [address] RDW SD 38.0 fl Normal 35.1-43.9 [facility] Comment on above: Performed By: #### L 506.0400, L500.2500, L100.0100, L501.5425, L501.9520, L501.21263 #### [facility] [address] [place], [address] WBC (Bld) [#/Vol] 7.1 10*3/uL Normal 4.4-11.0 [facility] Comment on above: Performed By: #### L 506.0400, L500.2500, L100.0100, L501.5425, L501.9520, L501.31452 #### [facility] [address] [place], [address] CNOVon 01-16-2024 CNOV Office Visit (UCTR ) LENY ISSA ([id number]) 1990 M Date Time Provider Department 01/16/24 8:45 AM JONATAN BRUNSON [facility] During your visit today, we recorded the following information about you: Jonatan Brunson APRN.CNP 01/16/2024 8:46 AM Signed Patient presents today complaining of an episode of chest pain that lasted about 30 minutes. He states he was driving and had left sided chest pain and a fluttering sensation in his chest. He notes that his father from a heart attack several months ago and he states that he had some blood work recently that showed some concerning issues and he is worried about his heart. He states that the chest pain has mostly resolved since. I explained to him that with this type of presentation he should be evaluated at an emergency department. Patient will go across the street to [place] emergency department for evaluation. Patient denies need for transportation. He was in no acute distress on my evaluation. Allergies As of Date: 01/16/2024 (No Known Allergies) Date Reviewed: 11/17/2023 Reviewed by: Annia Suarez MA - Fully Assessed Primary Visit Diagnosis:Chest pain, unspecified type [R07.9] Prescriptions as of 01/16/2024 - prazosin (MINIPRESS) 2 mg cap Take 1 capsule by mouth daily at bedtime. - lamoTRIgine (LAMICTAL) 150 mg tablet Take 1 tablet by mouth once daily. - risperiDONE (RISPERDAL) 4 mg tablet Take 1 tablet by mouth daily at bedtime. - benztropine (COGENTIN) 0.5 mg tablet Take 1 tablet by mouth two times a day. - buPROPion XL (WELLBUTRIN XL) 300 mg 24 hr tablet take 1 tablet by mouth once daily in the morning - risperiDONE Microspheres (RISPERDAL CONSTA) 12.5 mg/2 mL susp,ERrecon INJECT 4 ML INTRAMUSCULARLY EVERY TWO WEEKS - Fenofibrate (LOFIBRA) 54 mg tablet Facility-Administered Medications as of 01/16/2024 - risperiDONE Microspheres 25 mg (RisperDAL CONSTA) Problem List As Of Date 01/16/2024 Noted Resolved Schizoaffective disorder, bipolar type (HCC) [F*08/15/2022 Encounter Status:Closed by JONATAN BRUNSON on 01/16/24 Normal [facility] Chest 1 View (Portable)on Chest 1 View (Portable) [facility] [address], [place] [id number] Chest 1 View (Portable) MR#: [id number] Acct: [id number] Name: LENY ISSA Rep #: [id number] : 1990 M 33 From: Viry Donahue MD PCP: Dr. Khalida Ann, DO Status: PRE ER Study: Chest 1 View (Portable) Date of Exam: 01/16/24 Exam# [id number] Ordering Dr: Jeffrey Fregoso DO [id number] INDICATION: chest pain EXAMINATION/TECHNIQUE: X-RAY - XR Chest 1 View COMPARISON: No relevant prior comparison study available FINDINGS: LINES/DEVICES: None. LUNGS: No consolidation, edema or effusion. No pneumothorax. MEDIASTINUM AND CARDIOVASCULAR STRUCTURES: Cardiac silhouette not enlarged. Central airways and mediastinal contour are unremarkable. BONES AND SOFT TISSUES: Unremarkable. RAD/Chest 1 View (Portable) IMPRESSION: No radiographic evidence of acute cardiopulmonary disease. Electronically Signed: Viry Donahue MD at 9:49 EDT , CC: Dr. Khalida Ann DO; Dr. Jeffrey Fregoso DO [employer] Observer Helper: Signed Normal [facility] Emergency Department Summary on 01-16-2024 Emergency Department Summary [facility] Medical Records Department [address] [place] [address] Emergency Department Summary 01/16/24 MR#: [id number] Acct: [id number] Name: LENY ISSA Rep #: [id number] : 1990 33 From: Jeffrey Fregoso DO PCP: Dr. Khalida Ann DO Status:REG ER Location: ED HPI History of Present Illness Chief Complaint: Palpitations PFSH PFSH Allergy/AdvReac Type Severity Reaction Status Date / Time No Known Allergies Allergy Verified 01/16/24 09:02 Social History Smoking Status: Never smoker EXAM Physical Exam Const Vital Signs: 01/16/24 09:03 01/16/24 10:01 01/16/24 10:02 Temperature 97.6 F L Temperature Source Oral Pulse Rate 99 77 Respiratory Rate 18 15 Blood Pressure 136/100 H 123/84 H Blood Pressure Mean 112 97 Pulse Ox 98 Oxygen Delivery Method Room Air Room Air 01/16/24 11:00 01/16/24 12:00 01/16/24 13:00 Temperature Temperature Source Pulse Rate 77 81 62 Respiratory Rate 14 19 H Blood Pressure 135/81 H 107/46 L 121/67 H Blood Pressure Mean 99 66 85 Pulse Ox Oxygen Delivery Method [facility] Narrative Medical decision making narrative: HISTORY OF PRESENT ILLNESS: 33-year-old male presents with concern for heart fluttering. States he was driving to work. He felt like his heart was racing like he drank too much red bull. He states his dad in August from a heart attack. 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 Notes this occurred 1-1/2 hours prior to arrival. Notes last for approximate 20 minutes. Notes this resolved spontaneously. The patient denies recent surgery in the last 4 weeks or immobilization in the last 3 days, denies previous diagnosis of DVT or PE, hemoptysis, unilateral leg swelling or malignancy with treatment the last 6 months or palliative. No estrogen use noted. Patient denies sudden onset of pain, no tearing sensation, no migratory symptoms, no new numbness, weakness or loss of sensation. Patient denies family history or personal history of Connective tissue disorders (Marfan's Syndrome, Jad Danlos etc) REVIEW OF SYSTEMS: Pertinent positives: Palpitations Pertinent negatives: Syncope, chest pain, shortness of breath, leg swelling, bleeding diathesis, mopped assist. PHYSICAL EXAM: Nursing triage notes reviewed, Vital signs reviewed Constitutional: please see [facility] HENT: MMM Eyes: Pupils equal round and reactive to light, Extraocular muscles intact Neck: No stridor, no JVD, full neck ROM Lungs: Clear to auscultation, No wheezing or rales. No increased work of breathing, no conversational dyspnea, no accessory muscle use, no nasal flaring. No respiratory distress noted Heart: Regular rate and rhythm, No murmurs, No rubs and No gallops, 2+ distal pulses (radial, femoral, posterior tibial) in all extremities Abdomen: Soft, there is no tenderness, rigidity, rebound or guarding, no obvious peritoneal signs, no palpable pulsatile abdominal masses, no auscultated abdominal bruit : No CVAT Extremities: No edema Neuro: No focal neurological deficits, cranial nerves II through XII intact, 5/5 strength in all extremities. Intact sensation to light touch in all extremities, 2+ reflexes bilateral patella tendons. Normal gait. No ataxia. Skin: No rash or lesions noted MEDICAL DECISION MAKING: Chief Complaint: Palpitations External records reviewed: Reviewed prior allergy allergies, vital signs, home medications, prior cardiac imaging. Factors affecting care: none Social determinants of health: denies cocaine or methamphetamine History obtained from others: none Consults: none no focal cardiopulmonary normalities. No pulse deficits. MDM Narrative: The patient was initially hemodynamically stable, afebrile and nontoxic-appearing. Exam without focal cardiopulmonary normalities I considered the following differential diagnosis: Arrhythmia, anemia, electrolyte disturbance, thyroid dysfunction, pneumonia, pneumothorax, ACS, PE, aortic dissection While considered the patient's history and physical exam was not consistent with pulm embolism or any dissection ALL IMAGES (IF OBTAINED) HAVE BEEN PERSONALLY REVIEWED AND INTERPRETED BY MYSELF. EKG with normal sinus rhythm, normal axis, normal intervals, no STEMI CBC without leukocytosis, severe anemia, no thrombocytopenia. High-sensitivity troponin is negative, no evidence of myocardial ischemiax2 TSH, free T3 and T4 within normal limits no evidence of thyroid dysfunction I have personally reviewed the patient's chest x-ray. Chest x-ray is unremarkable for pulmonary edema, pneumothorax, pneumonia or focal cardiopulmonary abnormality. CBC without leukocytosis, severe anemia, no thrombocytopenia. BMP without evidence of significant electroly (more content not included)... Normal [facility] Free T3on 01-16-2024 Free T3 [Mass/Vol] 3.2 pg/mL Normal 2.18-3.98 [facility] Comment on above: Order Comment: 1 Y Performed By: #### L 506.0400, L500.2500, L100.0100, L501.5425, L501.9520, L501.47869 #### [facility] [address] [place], [address] L501.4020on 01-16-2024 TROPONIN-I HS 4 pg/mL Normal 3.0-78.0 [facility] Comment on above: Result Comment: Ramírez gonzáles Note: New Test Units and Gender Specific Reference Ranges. For more information see Policy Stat Procedure Pes[place]um High Sensitivity Troponin (TNIH) and attachments. Performed By: #### L 501.4020 #### [facility] [address] [place], [address] L501.5425on 01-16-2024 TROPONIN-I HS 4 pg/mL Normal 3.0-78.0 [facility] Comment on above: Order Comment: 1 Y Result Comment: Ramírez gonzáles Note: New Test Units and Gender Specific Reference Ranges. For more information see Policy Stat Procedure [place] High Sensitivity Troponin (TNIH) and attachments. Performed By: #### L 506.0400, L500.2500, L100.0100, L501.5425, L501.9520, L501.76128 #### [facility] [address] [place], [address] T4 Free Directon 01-16-2024 T4 FREE DIRECT 0.95 ng/dL Normal 0.76-1.46 [facility] Comment on above: Order Comment: 1 Y Performed By: #### L 506.0400, L500.2500, L100.0100, L501.5425, L501.9520, L501.97566 #### [facility] [address] [place], [place], [address] Thyroid Stim Hormone (TSH)on 01-16-2024 TSH 1.920 uIU/mL Normal 0.358-3.740 [facility] Comment on above: Order Comment: 1 Y Performed By: #### L 506.0400, L500.2500, L100.0100, L501.5425, L501.9520, L501.33434 #### [facility] [address] [place], [address] CNOVon 01-05-2024 CNOV Office Visit (PSWSTR ) LENY ISSA ([id number]) 1990 M Date Time Provider Department 01/05/24 11:00 AM NURSE [facility] PSWSTR During your visit today, we recorded the following information about you: Marcia Dodd LPN 01/15/2024 4:26 PM Signed Patient arrived with his injectable medication, Risperidone, per Kathrine Hunter CNP. Patient denies side effect with medication at this time. Patient given 4 ml IM every 2 weeks. IM given in bilateral arms LOT# [id number] exp. 09/2024. Tolerated well, no complaints noted. Nurse visit scheduled for 2 weeks. Marcia Dodd LPN Referring Provider: KHALIDA ANN [[id number]] Allergies As of Date: 01/05/2024 (No Known Allergies) Date Reviewed: 11/17/2023 Reviewed by: Annia Suarez MA - Fully Assessed Reason for Visit: Imm/Inj [58] Cmt: Schizoaffective disorder, bipolar type ([facility]) Primary Visit Diagnosis:Schizoaffect montse disorder, bipolar type (HCC) [F25.0] Prescriptions as of 01/15/2024 - prazosin (MINIPRESS) 2 mg cap Take 1 capsule by mouth daily at bedtime. - lamoTRIgine (LAMICTAL) 150 mg tablet Take 1 tablet by mouth once daily. - risperiDONE (RISPERDAL) 4 mg tablet Take 1 tablet by mouth daily at bedtime. - benztropine (COGENTIN) 0.5 mg tablet Take 1 tablet by mouth two times a day. - buPROPion XL (WELLBUTRIN XL) 300 mg 24 hr tablet take 1 tablet by mouth once daily in the morning - risperiDONE Microspheres (RISPERDAL CONSTA) 12.5 mg/2 mL susp,ERrecon INJECT 4 ML INTRAMUSCULARLY EVERY TWO WEEKS - Fenofibrate (LOFIBRA) 54 mg tablet Facility-Administered Medications as of 01/15/2024 - risperiDONE Microspheres 25 mg (RisperDAL CONSTA) Problem List As Of Date 01/05/2024 Noted Resolved Schizoaffective disorder, bipolar type (HCC) [F*08/15/2022 Encounter Status:Closed by MARCIA DODD on [facility]15/[facility] Tele[facility] (FAMAnupamaWS) LENY ISSA ([id number]) 1990 M Date Time Provider Department 01/04/24 [facility] During your visit today, we recorded the following information about you: Latia Devlin LPN 01/04/2024 10:14 AM Signed Pt calling stating he is due for his risperdone injection. Advises he gets them every tewo weeks but is off schedule d/t there was a problem in getting the medication. Pt advises he is due now for his injection. Please contact pt to schedule nurse visit for this. FAVIOLA Mazariegos Fonda, LPN 01/04/2024 10:36 AM Signed TC to patient, scheduled nurse visit for injection. Marcia Dodd LPN Allergies As of Date: 01/04/2024 (No Known Allergies) Date Reviewed: 11/17/2023 Reviewed by: Annia Suarez MA - Fully Assessed Reason for Visit: Injections [199] Prescriptions as of 01/04/2024 - prazosin (MINIPRESS) 2 mg cap Take 1 capsule by mouth daily at bedtime. - lamoTRIgine (LAMICTAL) 150 mg tablet Take 1 tablet by mouth once daily. - risperiDONE (RISPERDAL) 4 mg tablet Take 1 tablet by mouth daily at bedtime. - benztropine (COGENTIN) 0.5 mg tablet Take 1 tablet by mouth two times a day. - buPROPion XL (WELLBUTRIN XL) 300 mg 24 hr tablet take 1 tablet by mouth once daily in the morning - risperiDONE Microspheres (RISPERDAL CONSTA) 12.5 mg/2 mL susp,ERrecon INJECT 4 ML INTRAMUSCULARLY EVERY TWO WEEKS - Fenofibrate (LOFIBRA) 54 mg tablet Facility-Administered Medications as of 01/04/2024 - risperiDONE Microspheres 25 mg (RisperDAL CONSTA) Problem List As Of Date 01/04/2024 Noted Resolved Schizoaffective disorder, bipolar type (HCC) [F*08/15/2022 Encounter Status:Closed by MARCIA DODD on 01/04/24 Normal [facility] Apo B SerPl-mCncon 4 Apolipoprotein B [Mass/Vol] 99 mg/dL High <90 [facility] Comment on above: Order Comment: Speci men Type: BLOOD SPECIMENOrdering Facility: External Submitter Address: , , Result Comment: Mode rate Risk: 90-119 mg/dL High Risk: >119 mg/dL Performed By: #### 1 884-6, 74013-0 ####[facility] LABCL[facility] [id number] [address] [place] CRP SerPl HS-ncon 12-06-19 24 CRP High sensitivity method [Mass/Vol] 2.1 mg/L Normal <3.1 [facility] Comment on above: Order Comment: Speci men Type: BLOOD SPECIMENOrdering Facility: External Submitter Address: , , Result Comment: hsCR P < 1.0 mg/L, relative risk is low hsCRP 1.0-3.0 mg/L, relative risk is average hsCRP > 3.0 mg/L, relative risk is high Reference: Shin TA, Tk GA, Francisco J RW, et al. Markers of Inflammation and Cardiovascular Disease. Application to Clinical and Public Health Practice. A Statement for Healthcare Professionals from the Centers for Disease Control and Prevention and the [place] [employer]. Circulation 2003;107:499-511. Performed By: #### 3 0522-7 ####[facility] LAB[facility] [id number] [place] [address] [place] INSULIN, FREEon 12-06-2023 Insulin Free Qn 55.0 mU/L High 3.0-25.0 [facility] Comment on above: Order Comment: Speci men Type: BLOOD SPECIMENOrdering Facility: External Submitter Address: , , Performed By: #### F INS ####[facility] [id number] [address] [place] LPa SerPl-mCncon 12-06-2023 Lipoprotein a [Mass/Vol] mg/dL Normal <30 [facility] Comment on above: Order Comment: Speci men Type: BLOOD SPECIMENOrdering Facility: External Submitter Address: , , Performed By: #### 1 884-6, 94960-3 ####[facility] LAB[facility] [id number] [place] [id number] [facility] CNOVon 11-30-2023 CNOV Office Visit (PSWSTR ) LENY ISSA ([id number]) 1990 M Date Time Provider Department 11/30/23 8:00 AM NURSE [facility] PSWSTR During your visit today, we recorded the following information about you: Leonie Riojas LPN 11/30/2023 8:37 AM Signed Patient presents for Risperdal injection per Kathrine Hunter CNP. Denies any problems at this time. Brought own medication. Patient instructed on any SE of medication, verbalized understanding and agreed to proceed with treatment. Tolerated injection well. Leonie Riojas LPN Referring Provider: KHALIDA ANN [[id number]] Allergies As of Date: 11/30/2023 (No Known Allergies) Date Reviewed: 11/17/2023 Reviewed by: Annia Suarez MA - Fully Assessed Reason for Visit: Imm/Inj [58] Primary Visit Diagnosis:Schizoaffect montse disorder, bipolar type (HCC) [F25.0] Prescriptions as of 11/30/2023 - prazosin (MINIPRESS) 2 mg cap Take 1 capsule by mouth daily at bedtime. - benztropine (COGENTIN) 0.5 mg tablet Take 1 tablet by mouth two times a day. - buPROPion XL (WELLBUTRIN XL) 300 mg 24 hr tablet take 1 tablet by mouth once daily in the morning - lamoTRIgine (LAMICTAL) 150 mg tablet Take 1 tablet by mouth once daily. - risperiDONE (RISPERDAL) 4 mg tablet Take 1 tablet by mouth daily at bedtime. - risperiDONE Microspheres (RISPERDAL CONSTA) 12.5 mg/2 mL susp,ERrecon INJECT 4 ML INTRAMUSCULARLY EVERY TWO WEEKS - hydrOXYzine HCl (ATARAX) 25 mg tablet Take 1 tablet by mouth three times a day as needed for anxiety. - Fenofibrate (LOFIBRA) 54 mg tablet Facility-Administered Medications as of 11/30/2023 - risperiDONE Microspheres 25 mg (RisperDAL CONSTA) Problem List As Of Date 11/30/2023 Noted Resolved Schizoaffective disorder, bipolar type (HCC) [F*08/15/2022 Encounter Status:Closed by LEONIE RIOJAS on 11/30/23 [facility] MAEBLOVjude 11-17-2023 CNOV Office Visit (PSWSTR ) LENY ISSA ([id number]) 1990 M Date Time Provider Department 11/17/23 12:00 PM KATHIRNE HUNTER PSWSTR During your visit today, we recorded the following information about you: Pulse Respiration Blood pressure Weight 72/minute 16/minute 122/74 109.3 kg Kathrine Hunter, DECORATING INSTRUCTOR.PLASTIC AND RECONSTRUCTIVE SURGEON 11/20/2023 11:49 AM Signed FOLLOW UP - PSYCHIATRIC PROGRESS NOTE PATIENT: Leny Issa DATE: November 17, 2023 Visit Type:In person All information is from Patient report except when noted. This evaluation is NOT intended for forensic, disability or child custody purposes. CC: Presenting today for follow up regarding psychiatric medication management. HPI: Treatment Plan from Last Visit on 09/05/2023: Increase Prazosin to 2 mg as that has been more effective for his anxiety and vivid dreams at night. Continue the rest of the psychiatric medications at the same dose. Encouraged patient to use his CPAP consistently and work on incorporating more movement in his routine. Today Leny shares that he has been doing really well since the increase in Prazosin. Has been able to sleep well at night and no longer feels triggered by his trauma. Denies any side effects from the Prazosin. Did receive his IM injection for Risperdal and tolerated it well. Denies any side effects. Attends his appointments consistently every 2 weeks to take his injections. Has been sleeping better since he is using his CPAP consistently. Reports improvement in energy and motivation to workout and eat healthy again. is very supportive. Is able to manage stressors related to work well. Discussed feeling grateful the Risperdal IM is now available in a generic. This will significantly help with the cost of the medication. Does report some concerns about switching from the brand name formulation to generic. Reviewed things to monitor and reach out regarding this concern. Patient has taken oral Risperdal which is generic and has tolerated it well. Interval Progress: Improved PATIENT DATA: Generalized Anxiety Disorder Scale (CLYDE-7) 06/29/2023 09/05/2023 09/19/2023 CLYDE - 7 SCORES Score 4 1 1 (0-4) minimal anxiety, (5-9) mild anxiety, (10-14) moderate anxiety, (15-21) severe anxiety Patient Health Questionnaire (PHQ-9) 06/29/2023 09/05/2023 09/19/2023 PHQ-9 Score 11 4 1 (0-4) minimal depression, (5-9) mild depression, (10-14) moderate depression, (15-19) moderately severe depression, (20-27) severe depression No past medical history on file. No past surgical history on file. ALLERGIES No Known Allergies Current Outpatient Medications on File Prior to Visit Medication Sig prazosin (MINIPRESS) 2 mg cap Take 1 capsule by mouth daily at bedtime. benztropine (COGENTIN) 0.5 mg tablet Take 1 tablet by mouth two times a day. buPROPion XL (WELLBUTRIN XL) 300 mg 24 hr tablet take 1 tablet by mouth once daily in the morning lamoTRIgine (LAMICTAL) 150 mg tablet Take 1 tablet by mouth once daily. risperiDONE (RISPERDAL) 4 mg tablet Take 1 tablet by mouth daily at bedtime. risperiDONE Microspheres (RISPERDAL CONSTA) 12.5 mg/2 mL susp,ERrecon INJECT 4 ML INTRAMUSCULARLY EVERY TWO WEEKS hydrOXYzine HCl (ATARAX) 25 mg tablet Take 1 tablet by mouth three times a day as needed for anxiety. Fenofibrate (LOFIBRA) 54 mg tablet Current Facility-Administered Medications on File Prior to Visit Medication risperiDONE Microspheres 25 mg (RisperDAL CONSTA) ROS: See HPI PFSH: See HPI VITAL SIGNS: 11/17/23 1205 BP: 122/74 Pulse: 72 Resp: 16 Weight: 109.3 kg (241 lb) Last 3 Encounter BP Readings: Date: BP: 11/17/2023 122/74 09/05/2023 124/88 MENTAL STATUS EXAMINATION: Appearance: Well dressed, well groomed Behavior: Behaves appropriately during the encounter Social relatedness: Euthymic Speech/Language: The patient demonstrates appropriate tone, prosody, nacho, phonetics, and syntax Mood: euthymic Affect: Full and appropriate to topic Orientation: Person, Place, Time and Situation Associations: Intact and linear Hallucinations: None Delusions: None Suicidal Ideation: No suicidal ideation, intent or plan. Homicidal Ideation: No homicidal ideation, intent or plan. Insight: Appropriate Judgment: Appropriate DATA REVIEWED: Psychiatric scales, Electronic medical record, and Labs DIAGNOSIS: Schizoaffective disorder, bipolar type (hcc) (primary encounter diagnosis) [place] (generalized anxiety disorder) Chronic post-traumatic stress disorder (ptsd) GAF: -80-71 If symptoms are present, they are transient and expectable reactions to psychosocial stressors TREATMENT PLAN: Continue psychiatric medications at the same dose. Continue Risperdal IM injections every 2 weeks. Order monitoring lab work at the next appointment. MEDICATION CHANGES: Current medication regimen unchan (more content not included)... Normal [facility] Lipid 1996 panelon 4 Cholesterol [Mass/Vol] 169 mg/dL NINF - 200 mg/dL [facility] Comment on above: <200 mg/dL, Desirabl e 200-239 mg/dL, Borderline high >239 mg/dL, High Cholesterol in HDL [Mass/Vol] 32 mg/dL Low 39 - PINF mg/dL [facility] Comment on above: 40-59 mg/dL, Accepta ble >59 mg/dL, High: Negative risk factor for coronary heart disease <40 mg/dL, Low: Positive risk factor for coronary heart disease Cholesterol in LDL [Mass/Vol] 85 mg/dL NINF - 100 mg/dL [facility] Comment on above: <100 mg/dL, Optimal 100-129 mg/dL, Near optimal/above optimal 130-159 mg/dL, Borderline high 160-189 mg/dL, High >189 mg/dL, Very high Secondary prevention optimal LDL Cholesterol levels are recommended to be < 70 mg/dL Cholesterol in LDL/Cholesterol in HDL [Mass ratio] 2.66 {ratio} High NINF - 2.54 [facility] Comment on above: Reference: 1. National Cholesterol Education Program ATP III Guideline At-A-Glance Quick Desk Reference: National Heart, Lung, and Blood [place]. National Institutes of Health. 2001: NIH Publication No. 01-3305. 2. An International Atherosclerosis Society position paper: global recommendations for the management of dyslipidemia: executive summary, Atherosclerosis. 2014: 232(2):410-413. Cholesterol in VLDL [Mass/Vol] 52 mg/dL High NINF - 30 mg/dL [facility] Cholesterol non HDL [Mass/Vol] 137 mg/dL High NINF - 130 mg/dL [facility] Comment on above: <130 mg/dL, Optimal 130-159 mg/dL, Near optimal/above optimal 160-189 mg/dL, Borderline high 190-219 mg/dL, High >219 mg/dL, Very high Secondary prevention optimal non HDL Cholesterol levels are recommended to be <100 mg/dL Cholesterol.total/Ch olesterol in HDL [Mass ratio] 5.28 {ratio} High NINF - 5.10 [facility] Fasting Time 15 hrs [facility] Interpretation and review of laboratory results Abnormal [facility] Triglyceride [Mass/Vol] 261 mg/dL High NINF - 150 mg/dL [facility] Comment on above: <150 mg/dL, Normal 150-199 mg/dL, Borderline high 200-499 mg/dL, High >499 mg/dL, Very high [facility] Vital Signs Date Time Vital Sign Value Performing Clinician Jeanie arambula 07-23-2024 12:47-0400 Body weight 105.6 kg Kathrine Hunter APRN.PLASTIC AND RECONSTRUCTIVE SURGEON Work Phone: [facility] 07-23-2024 12:47-0400 Heart rate 88 /min Kathrine Rajguru DECORATING INSTRUCTOR.PLASTIC AND RECONSTRUCTIVE SURGEON Work Phone: [facility] 07-23-2024 12:47-0400 SaO2% (BldA) [Mass fraction] 99 % Kathrine Moisesguru DECORATING INSTRUCTOR.PLASTIC AND RECONSTRUCTIVE SURGEON Work Phone: [facility] 04-30-2024 17:14-0500 Body weight 108.59 kg Nurse Wstr Work Phone: [facility] 04-30-2024 17:14-0500 Diastolic blood pressure 70 mm[Hg] Nurse Wstr Work Phone: [facility] 04-30-2024 17:14-0500 Systolic blood pressure 136 mm[Hg] Nurse Wstr Work Phone: [facility] 2024 17:12-0500 Diastolic blood pressure 86 mm[Hg] Nurse Wstr Work Phone: [facility] 2024 17:12-0500 Systolic blood pressure 148 mm[Hg] Nurse Wstr Work Phone: [facility] 02-20-2024 08:04-0500 Body weight 107.96 kg Kathrine Cande DECORATING INSTRUCTOR.PLASTIC AND RECONSTRUCTIVE SURGEON Work Phone: [facility] 02-20-2024 08:04-0500 Diastolic blood pressure 80 mm[Hg] Kathrine Moisesguru DECORATING INSTRUCTOR.PLASTIC AND RECONSTRUCTIVE SURGEON Work Phone: [facility] 02-20-2024 08:04-0500 Heart rate 64 /min Kathrine Rajguru DECORATING INSTRUCTOR.PLASTIC AND RECONSTRUCTIVE SURGEON Work Phone: [facility] 02-20-2024 08:04-0500 Respiratory rate 16 /min Kathrine Rajguru DECORATING INSTRUCTOR.PLASTIC AND RECONSTRUCTIVE SURGEON Work Phone: [facility] 02-20-2024 08:04-0500 Systolic blood pressure 140 mm[Hg] Kathrine Rajguru DECORATING INSTRUCTOR.PLASTIC AND RECONSTRUCTIVE SURGEON Work Phone: [facility] 11-17-2023 12:05-0400 Body weight 109.32 kg Kathrine Rajguru DECORATING INSTRUCTOR.PLASTIC AND RECONSTRUCTIVE SURGEON Work Phone: [facility] 11-17-2023 12:05-0400 Diastolic blood pressure 74 mm[Hg] Kathrine Rajguru DECORATING INSTRUCTOR.PLASTIC AND RECONSTRUCTIVE SURGEON Work Phone: [facility] 11-17-2023 12:05-0400 Heart rate 72 /min Kathrine Rajguru DECORATING INSTRUCTOR.PLASTIC AND RECONSTRUCTIVE SURGEON Work Phone: [facility] 11-17-2023 12:05-0400 Respiratory rate 16 /min Kathrine Rajguru DECORATING INSTRUCTOR.PLASTIC AND RECONSTRUCTIVE SURGEON Work Phone: [facility] 11-17-2023 12:05-0400 Systolic blood pressure 122 mm[Hg] Kathrine Rajguru DECORATING INSTRUCTOR.PLASTIC AND RECONSTRUCTIVE SURGEON Work Phone: [facility] 10-17-2023 07:55-0400 Body weight 109.32 kg Kathrine Rajguru DECORATING INSTRUCTOR.PLASTIC AND RECONSTRUCTIVE SURGEON Work Phone: [facility] 09-05-2023 08:21-0400 Body weight 109.68 kg Kathrine Rajguru DECORATING INSTRUCTOR.PLASTIC AND RECONSTRUCTIVE SURGEON Work Phone: [facility] 09-05-2023 08:21-0400 Diastolic blood pressure 88 mm[Hg] Kathrine Rajguru DECORATING INSTRUCTOR.PLASTIC AND RECONSTRUCTIVE SURGEON Work Phone: [facility] 09-05-2023 08:21-0400 Heart rate 80 /min Kathrine Rajguru DECORATING INSTRUCTOR.PLASTIC AND RECONSTRUCTIVE SURGEON Work Phone: [facility] 09-05-2023 08:21-0400 Systolic blood pressure 124 mm[Hg] Kathrine Rajguru DECORATING INSTRUCTOR.PLASTIC AND RECONSTRUCTIVE SURGEON Work Phone: [facility] Encounters Encounter Date Encounter Type Care Provider Facility Start: 10-29-2024 End: 10-29-2024 Patient encounter procedure Kathrine Hunter APRN.PLASTIC AND RECONSTRUCTIVE SURGEON Work Phone: Psychiatry Comment on above: NO SHOW (Primary Dx) Start: 10-22-2024 End: 10-23-2024 Refill Kathrine Hunter APRN.PLASTIC AND RECONSTRUCTIVE SURGEON Work Phone: Psychiatry Comment on above: Refill Request Start: 10-01-2024 End: 10-01-2024 ambulatory KATHRINE HUNTER Facility:[facility] Start: 09-22-2024 End: 09-23-2024 Refill Kathrine Hunter APRN.PLASTIC AND RECONSTRUCTIVE SURGEON Work Phone: Psychiatry Comment on above: Refill Request Start: 09-17-2024 End: 09-17-2024 ambulatory KHALIDA Skip [facility] Facility:[facility] Start: 08-06-2024 End: 08-06-2024 Patient encounter procedure Nurse [facility] Work Phone: Psychiatry Comment on above: Schizoaffective diso rder, bipolar type (HCC) (Primary Dx); Encounter for long-term (current) use of medications Start: 08-06-2024 End: 08-06-2024 ambulatory KATHRINE Venita HUNTER Facility:[facility] Start: 07-23-2024 End: 07-23-2024 Office outpatient visit 25 minutes Kathrine Hunter APRN.PLASTIC AND RECONSTRUCTIVE SURGEON Work Phone: Psychiatry Comment on above: Schizoaffective diso rder, bipolar type (HCC) (Primary Dx); CLYDE (generalized anxiety disorder); Chronic post-traumatic stress disorder (PTSD); Psychosocial stressors; Encounter for long-term (current) use of medications Start: 07-23-2024 End: 07-23-2024 ambulatory KATHRINE HUNTER Facility:[facility] Start: 07-19-2024 End: 07-19-2024 Telephone encounter Kathrine Hunter APRN.PLASTIC AND RECONSTRUCTIVE SURGEON Work Phone: Psychiatry Comment on above: Pharmacy Call Start: 07-17-2024 End: 07-17-2024 Telephone encounter Kathrine Hunter APRN.PLASTIC AND RECONSTRUCTIVE SURGEON Work Phone: Psychiatry Start: 07-15-2024 End: 07-17-2024 Refill Kathrine Hunter APRN.PLASTIC AND RECONSTRUCTIVE SURGEON Work Phone: Psychiatry Comment on above: Med Change Request Start: 07-15-2024 End: 07-15-2024 Telephone encounter Kathrine Hunter APRN.PLASTIC AND RECONSTRUCTIVE SURGEON Work Phone: Psychiatry Start: 07-09-2024 End: 07-09-2024 Telephone encounter Kathrine Hunter APRN.PLASTIC AND RECONSTRUCTIVE SURGEON Work Phone: Psychiatry Comment on above: Patient Question Start: 07-08-2024 End: 07-09-2024 ambulatory Kathrine Hunter APRN.PLASTIC AND RECONSTRUCTIVE SURGEON Work Phone: Psychiatry Comment on above: Cancel Start: 07-02-2024 End: 07-03-2024 Refill Kathrine Hunter APRN.PLASTIC AND RECONSTRUCTIVE SURGEON Work Phone: Psychiatry Comment on above: Refill Request Start: 06-28-2024 End: 07-09-2024 Telephone encounter Kathrine Hunter APRN.PLASTIC AND RECONSTRUCTIVE SURGEON Work Phone: Psychiatry Start: 06-25-2024 End: 06-25-2024 ambulatory [facility] Facility:[facility] Start: 06-25-2024 End: 06-25-2024 Patient encounter procedure Nurse [facility] Work Phone: Psychiatry Comment on above: Schizoaffective diso rder, bipolar type (HCC) (Primary Dx); Encounter for long-term (current) use of medications Start: 06-11-2024 End: 06-11-2024 Refill Kathrine Hunter APRN.PLASTIC AND RECONSTRUCTIVE SURGEON Work Phone: Psychiatry Comment on above: Refill Request Schizoaffective diso rder, bipolar type (HCC) (Primary Dx) Start: 06-08-2024 End: 06-10-2024 Refill Kathrine Hunter APRN.PLASTIC AND RECONSTRUCTIVE SURGEON Work Phone: Psychiatry Comment on above: Refill Request Start: 05-28-2024 End: 05-28-2024 ambulatory KATHRINE HUNTER Facility:[facility] Start: 05-28-2024 End: 05-28-2024 Patient encounter procedure Kathrine Hunter APRN.JOSÉ MIGUEL Work Phone: Psychiatry Comment on above: NO SHOW (Primary Dx) Start: 05-25-2024 End: 05-27-2024 Refill Kathrine Hunter APRN.PLASTIC AND RECONSTRUCTIVE SURGEON Work Phone: Psychiatry Comment on above: Refill Request Start: 04-30-2024 End: 04-30-2024 Patient encounter procedure Nurse [facility] Work Phone: Psychiatry Comment on above: Schizoaffective diso rder, bipolar type (HCC) (Primary Dx) Start: 04-30-2024 End: 04-30-2024 ambulatory [facility] Facility:[facility] Start: 04-24-2024 End: 04-24-2024 Refill Kathrine Hunter APRN.PLASTIC AND RECONSTRUCTIVE SURGEON Work Phone: Psychiatry Comment on above: Refill Request Start: 03-28-2024 End: 03-28-2024 Refill Kathrine Hunter APRN.PLASTIC AND RECONSTRUCTIVE SURGEON Work Phone: Psychiatry Comment on above: Refill Request Start: 2024 End: 2024 Patient encounter procedure Nurse [facility] Work Phone: Psychiatry Comment on above: Schizoaffective diso rder, bipolar type (HCC) (Primary Dx) Start: 2024 End: 2024 [facility] [facility] Facility:[facility] Start: 03-06-2024 End: 03-06-2024 Telephone encounter Kathrine Hunter APRN.PLASTIC AND RECONSTRUCTIVE SURGEON Work Phone: Psychiatry Comment on above: Orders Start: 03-05-2024 End: 03-05-2024 Patient encounter procedure Nurse [facility] Work Phone: Psychiatry Comment on above: Schizoaffective diso rder, bipolar type (HCC) (Primary Dx) Start: 03-05-2024 End: 03-05-2024 ambulatory KATHRINE HUNTER Facility:[facility] Start: 02-20-2024 End: 02-26-2024 Office outpatient visit 25 minutes Kathrine Hunter APRN.PLASTIC AND RECONSTRUCTIVE SURGEON Work Phone: Psychiatry Comment on above: Schizoaffective diso rder, bipolar type (HCC) (Primary Dx); CLYDE (generalized anxiety disorder); Chronic post-traumatic stress disorder (PTSD); Encounter for long-term (current) use of medications Start: 02-20-2024 End: 02-20-2024 ambulatory KATHRINE HUNTER Facility:[facility] Start: 01-23-2024 End: 01-23-2024 ambulatory KATHRINE HUNTER Facility:[facility] Start: 01-23-2024 End: 01-23-2024 Patient encounter procedure Nurse [facility] Work Phone: Psychiatry Comment on above: Schizoaffective diso rder, bipolar type (HCC) (Primary Dx) Start: 01-16-2024 End: 01-16-2024 Emergency department patient visit [facility] Facility:[facility] Start: 01-16-2024 End: 01-16-2024 Refill Kathrine Hunter APRN.PLASTIC AND RECONSTRUCTIVE SURGEON Work Phone: Psychiatry Comment on above: Refill Request Chest pain, unspecif ied type (Primary Dx) Start: 01-05-2024 End: 01-05-2024 ambulatory [facility] Facility:[facility] Start: 01-05-2024 End: 01-05-2024 Patient encounter procedure Nurse [facility] Work Phone: Psychiatry Comment on above: Schizoaffective diso rder, bipolar type (HCC) (Primary Dx) Start: 01-04-2024 End: 01-04-2024 Telephone encounter Kathrine Hunter APRN.PLASTIC AND RECONSTRUCTIVE SURGEON Work Phone: [facility] Comment on above: Injections Start: 12-06-2023 End: 12-06-2023 ambulatory [facility] Facility:[facility] Start: 12-04-2023 End: 12-05-2023 Refill Kathrine Hunter DECORATING INSTRUCTOR.PLASTIC AND RECONSTRUCTIVE SURGEON Work Phone: Psychiatry Comment on above: Refill Request Start: 11-30-2023 End: 11-30-2023 [facility] Facility:[facility] Start: 11-30-2023 End: 11-30-2023 Patient encounter procedure Nurse [facility] Work Phone: Psychiatry Comment on above: Schizoaffective diso rder, bipolar type (HCC) (Primary Dx) Start: 11-17-2023 End: 11-17-2023 Patient encounter procedure Kathrine Hunter APRN.PLASTIC AND RECONSTRUCTIVE SURGEON Work Phone: Psychiatry Comment on above: Schizoaffective diso rder, bipolar type (HCC) (Primary Dx); CLYDE (generalized anxiety disorder); Chronic post-traumatic stress disorder (PTSD) Start: 11-17-2023 End: 11-17-2023 ambulatory KATHRINE HUNTER Facility:[facility] Start: 10-31-2023 End: 10-31-2023 Patient encounter procedure Nurse [facility] Work Phone: Psychiatry Comment on above: Schizoaffective diso rder, bipolar type (HCC) (Primary Dx) Start: 10-27-2023 Telephone encounter Kathrine muhammad APRN.PLASTIC AND RECONSTRUCTIVE SURGEON Work Phone: Psychiatry Comment on above: Orders Start: 10-17-2023 Telephone encounter Kathrine muhammad APRN.PLASTIC AND RECONSTRUCTIVE SURGEON Work Phone: Psychiatry Comment on above: Orders Start: 10-17-2023 End: 10-17-2023 Patient encounter procedure Kathrine Hunter APRN.PLASTIC AND RECONSTRUCTIVE SURGEON Work Phone: Psychiatry Comment on above: Schizoaffective diso rder, bipolar type (HCC) (Primary Dx) Start: 10-03-2023 End: 10-03-2023 Office outpatient visit 15 minutes Kathrine Hunter APRN.PLASTIC AND RECONSTRUCTIVE SURGEON Work Phone: Psychiatry Comment on above: Schizoaffective diso rder, bipolar type (HCC) (Primary Dx) Start: 09-19-2023 End: 09-19-2023 Office outpatient new [address] [facility] Work Phone: Psychiatry Comment on above: Schizoaffective diso rder, bipolar type (HCC) (Primary Dx) Start: 09-10-2023 ambulatory [facility] Facility: [facility] Start: 09-05-2023 End: 09-05-2023 Patient encounter procedure Kathrine Hunter APRN.PLASTIC AND RECONSTRUCTIVE SURGEON Work Phone: Psychiatry Comment on above: Schizoaffective diso rder, bipolar type (HCC) (Primary Dx); CLDYE (generalized anxiety disorder) Start: 08-22-2023 Refill Kathrine grace DECORATING INSTRUCTOR.PLASTIC AND RECONSTRUCTIVE SURGEON Work Phone: Psychiatry Comment on above: Refill Request Start: 08-22-2023 End: 08-22-2023 Office outpatient visit 10 minutes Kathrine Hunter APRN.PLASTIC AND RECONSTRUCTIVE SURGEON Work Phone: Psychiatry Comment on above: Schizoaffective diso rder, bipolar type (HCC) (Primary Dx) Start: 08-10-2023 Telephone encounter Kathrine muhammad APRN.PLASTIC AND RECONSTRUCTIVE SURGEON Work Phone: Psychiatry Comment on above: Patient Question Patient Update Start: 08-10-2023 End: 08-10-2023 Office outpatient visit 10 minutes Kathrine Hunter DECORATING INSTRUCTOR.PLASTIC AND RECONSTRUCTIVE SURGEON Work Phone: Psychiatry Comment on above: Schizoaffective diso rder, bipolar type (HCC) (Primary Dx) Start: 08-08-2023 Telephone encounter Kathrine muhammad APRN.PLASTIC AND RECONSTRUCTIVE SURGEON Work Phone: Psychiatry Comment on above: Patient Update Start: 08-08-2023 End: 08-08-2023 Patient encounter procedure Kathrine Hunter APRN.PLASTIC AND RECONSTRUCTIVE SURGEON Work Phone: Psychiatry Comment on above: APPOINTMENT CANCELLE D (Primary Dx) Start: 08-03-2023 Telephone encounter Kathrine muhammad APRN.PLASTIC AND RECONSTRUCTIVE SURGEON Work Phone: Psychiatry Comment on above: Patient Update Start: 07-25-2023 End: 07-25-2023 Office outpatient visit 10 minutes Kathrine Hunter APRN.PLASTIC AND RECONSTRUCTIVE SURGEON Work Phone: Psychiatry Comment on above: Hyperlipoproteinemia (Primary Dx) Start: 07-06-2023 End: 07-06-2023 [facility] Kathrine Hunter APRN.PLASTIC AND RECONSTRUCTIVE SURGEON Work Phone: Psychiatry Comment on above: Schizoaffective diso rder, bipolar type (HCC) (Primary Dx); CLYDE (generalized anxiety disorder) Start: 07-05-2023 Refill Kathrine Nathan Nicolásr u DECORATING INSTRUCTOR.PLASTIC AND RECONSTRUCTIVE SURGEON Work Phone: Psychiatry Comment on above: Refill Request Start: 05-15-2023 Refill Kathrine Nathan Nicolásr u DECORATING INSTRUCTOR.PLASTIC AND RECONSTRUCTIVE SURGEON Work Phone: Psychiatry Comment on above: Refill Request Start: 03-09-2023 End: 03-09-2023 [facility] Kathrinekirby Monzonru DECORATING INSTRUCTOR.PLASTIC AND RECONSTRUCTIVE SURGEON Work Phone: Psychiatry Comment on above: Schizoaffective diso rder, bipolar type (HCC) (Primary Dx); CLYDE (generalized anxiety disorder) Start: 03-03-2023 Refill Kathrine Venita Moisesgur u DECORATING INSTRUCTOR.PLASTIC AND RECONSTRUCTIVE SURGEON Work Phone: Psychiatry Comment on above: Refill Request Start: 02-24-2023 Refill Valentine Flood Work Phone: Psychiatry Comment on above: Refill Request Start: 02-19-2023 Refill Kathrine Nathan Moisesgur u DECORATING INSTRUCTOR.PLASTIC AND RECONSTRUCTIVE SURGEON Work Phone: Psychiatry Comment on above: Refill Request Start: 01-27-2023 Refill Kathrine Nathan Nicolásr u DECORATING INSTRUCTOR.PLASTIC AND RECONSTRUCTIVE SURGEON Work Phone: Psychiatry Comment on above: Refill Request Start: 12-15-2022 Refill Kathrine Nathan Moisesgur u DECORATING INSTRUCTOR.PLASTIC AND RECONSTRUCTIVE SURGEON Work Phone: Psychiatry Comment on above: Refill Request Start: 12-11-2022 Refill Valentine Flood Work Phone: Psychiatry Comment on above: Refill Request Start: 08-31-2022 Refill Kathrine Nathan Moisesgur u DECORATING INSTRUCTOR.PLASTIC AND RECONSTRUCTIVE SURGEON Work Phone: Psychiatry Comment on above: Refill Request Start: 05-11-2022 End: 05-11-2022 ambulatory Kathrine Monzonru DECORATING INSTRUCTOR.PLASTIC AND RECONSTRUCTIVE SURGEON Work Phone: Psychiatry Comment on above: NO SHOW (Primary Dx) Start: 05-11-2022 End: 05-11-2022 Telemedicine consultation with patient Kathrine Hunter DECORATING INSTRUCTOR.PLASTIC AND RECONSTRUCTIVE SURGEON Work Phone: [facility] Start: 05-05-2022 Refill Kathrine Nathan Nicolásr u DECORATING INSTRUCTOR.PLASTIC AND RECONSTRUCTIVE SURGEON Work Phone: Psychiatry Comment on above: Refill Request Start: 02-28-2022 Refill Kathrine Nathan Moisesgur u DECORATING INSTRUCTOR.PLASTIC AND RECONSTRUCTIVE SURGEON Work Phone: Psychiatry Comment on above: Refill Request Start: 01-21-2022 Refill Kathrine Nathan Moisesgur u DECORATING INSTRUCTOR.PLASTIC AND RECONSTRUCTIVE SURGEON Work Phone: Psychiatry Comment on above: Refill Request Start: 01-03-2022 Refill Kathrine Nathan Moisesgur u DECORATING INSTRUCTOR.PLASTIC AND RECONSTRUCTIVE SURGEON Work Phone: Psychiatry Comment on above: Refill Request Start: 10-01-2021 End: 10-01-2021 [facility] Kathrinekirby Hunter DECORATING INSTRUCTOR.PLASTIC AND RECONSTRUCTIVE SURGEON Work Phone: Psychiatry Comment on above: Schizoaffective diso rder, bipolar type (HCC) (Primary Dx); CLYDE (generalized anxiety disorder) Start: 07-05-2021 End: 07-05-2021 [facility] Kathrine Nathan Cande DECORATING INSTRUCTOR.PLASTIC AND RECONSTRUCTIVE SURGEON Work Phone: Psychiatry Comment on above: Schizoaffective diso rder, bipolar type (HCC) (Primary Dx); CLYDE (generalized anxiety disorder) Start: 06-20-2021 Refill Kathrine Nathan Moisesjarretr u DECORATING INSTRUCTOR.PLASTIC AND RECONSTRUCTIVE SURGEON Work Phone: Psychiatry Comment on above: Refill Request Procedures Date Procedure Procedure Detail Performing Clinician Start: 10-01-2021 Adult depression screening assessment Kathrine Hunter APRN.PLASTIC AND RECONSTRUCTIVE SURGEON Work Phone: Start: 07-05-2021 Adult depression screening assessment Kathrine Hunter DECORATING INSTRUCTOR.PLASTIC AND RECONSTRUCTIVE SURGEON Work Phone: Start: 12-17-2020 Adult depression screening assessment Kathrine Hunter APRN.PLASTIC AND RECONSTRUCTIVE SURGEON Work Phone: Plan of Treatment Date Care Activity Detail Author Start: 05-20-2034 Urine microalbumin profile DTaP,Tdap,Td Vaccine (5 - Td or Tdap) [facility] Start: 12-02-2024 Influenza vaccination [facility] Start: 10-29-2024 End: 10-29-2024 Patient encounter procedure 10/29/2024 4:30 PM EDT Office Visit Psychiatry [address] [place] [address] Kathrine Hunter, DECORATING INSTRUCTOR.PLASTIC AND RECONSTRUCTIVE SURGEON [address] [place] [address] 3 month follow up Psychiatry Comment on above: 3 month follow up Start: 10-15-2024 End: 10-15-2024 Patient encounter procedure 10/15/2024 4:30 PM EDT Office Visit Psychiatry [address] [place] [address] [facility], Nurse [facility] [address] [place] [address] IM Injection Psychiatry Comment on above: IM Injection Start: 10-01-2024 End: 10-01-2024 Patient encounter procedure 10/01/2024 4:30 PM EDT Office Visit Psychiatry [address] [place] [address] Wstr, Nurse [facility] [address] [place] [address] IM Injection Psychiatry Comment on above: IM Injection Start: 09-17-2024 End: 09-17-2024 Patient encounter procedure 09/17/2024 4:30 PM EDT Office Visit Psychiatry [address] [place] [address] Wstr, Nurse [facility] [address] [address] IM Injection Psychiatry Comment on above: IM Injection Start: 09-03-2024 End: 09-03-2024 Patient encounter procedure 09/03/2024 4:30 PM EDT Office Visit Psychiatry [address] [place] [address] Wstr, Nurse [facility] [address] [place] [phone] IM Injection Psychiatry Comment on above: IM Injection Start: 08-20-2024 End: 08-20-2024 Patient encounter procedure 08/20/2024 4:30 PM EDT Office Visit Psychiatry [address] [place] [phone] Wstr, Nurse [facility] [address] [place] [phone] IM Injection Psychiatry Comment on above: IM Injection Start: 07-23-2024 End: 07-23-2024 Patient encounter procedure 07/23/2024 1:00 PM EDT Office Visit Psychiatry [address] [phone] Kathrine Hunter, DECORATING INSTRUCTOR.PLASTIC AND RECONSTRUCTIVE SURGEON [address] [place] [phone] Reschedule visit from 05/28/24 Psychiatry Comment on above: Reschedule visit fro m 05/28/24 Start: 07-09-2024 End: 07-09-2024 Patient encounter procedure 07/09/2024 4:30 PM EDT Office Visit Psychiatry [address] [place] [phone] Kathrine Hunter, DECORATING INSTRUCTOR.PLASTIC AND RECONSTRUCTIVE SURGEON [address] [place] [address] Reschedule visit from 05/28/24 Psychiatry Comment on above: Reschedule visit fro m 05/28/24 Start: 05-28-2024 End: 05-28-2024 Patient encounter procedure 05/28/2024 8:00 AM EST Office Visit Psychiatry [address] [place] [phone] Kathrine Hunter, DECORATING INSTRUCTOR.PLASTIC AND RECONSTRUCTIVE SURGEON [address] [place] [phone] Provider Ordered 3 month follow up Psychiatry Comment on above: Provider Ordered 3 m [facility] follow up Start: 05-14-2024 End: 05-14-2024 Patient encounter procedure 05/14/2024 4:30 PM EST Office Visit Psychiatry [address] [place] [address] Wstr, Nurse [facility] [address] [place] [address] injection Psychiatry Comment on above: injection Start: 04-30-2024 End: 04-30-2024 Patient encounter procedure 04/30/2024 4:30 PM EST Office Visit Psychiatry [address] [place] [address] Wstr, Nurse [facility] [address] [place] [address] injection Psychiatry Comment on above: injection Start: 04-16-2024 End: 04-16-2024 Patient encounter procedure 04/16/2024 4:30 PM EST Office Visit Psychiatry [address] [place] [address] Wstr, Nurse [facility] [address] [place] [address] injection Psychiatry Comment on above: injection Start: 04-02-2024 End: 04-02-2024 Patient encounter procedure 04/02/2024 3:00 PM EST Office Visit Psychiatry [address] [place] [address] Wstr, Nurse [facility] [address] [place] [address] injection Psychiatry Comment on above: injection Start: 2024 End: 2024 Patient encounter procedure 2024 4:30 PM EST Office Visit Psychiatry [address] [place] [address] Wstr, Nurse [facility] [address] [place] [address] 2 week injection Psychiatry Comment on above: 2 week injection Start: 03-05-2024 End: 03-05-2024 Patient encounter procedure 03/05/2024 4:00 PM EST Office Visit Psychiatry [address] [facility] [place] [address] Wstr, Nurse [facility] [address] [place] [phone] 2 week inject Psychiatry Comment on above: 2 week inject Start: 02-20-2024 End: 05-21-2024 Comprehensive metabolic 2000 panel - Serum or Plasma COMPREHENSIVE METABOLIC PANEL Lab Routine Encounter for long-term (current) use of medications Expected: 02/20/2024, Expires: 05/21/2024 [facility] Comment on above: Expected: 02/20/2024 , Expires: 05/21/2024 Start: 02-20-2024 End: 05-21-2024 Hemoglobin A1c in Blood HEMOGLOBIN A1C Lab Routine Encounter for long-term (current) use of medications Expected: 02/20/2024, Expires: 05/21/2024 [facility] Comment on above: Expected: 02/20/2024 , Expires: 05/21/2024 Start: 02-20-2024 End: 05-21-2024 Lipid 1996 panel - Serum or Plasma LIPID PANEL BASIC Lab Routine Encounter for long-term (current) use of medications Expected: 02/20/2024, Expires: 05/21/2024 [facility] Work Phone: Comment on above: Expected: 02/20/2024 , Expires: 05/21/2024 Start: 02-20-2024 End: 02-20-2024 Patient encounter procedure 02/20/2024 8:00 AM EST Office Visit Psychiatry [address] [place] [address] Kathrine Hunter, DECORATING INSTRUCTOR.[facility] [address] [place] [address] follow up 3 months/injection risperdone Psychiatry Comment on above: follow up 3 months/i njection risperdone Start: 01-05-2024 End: 01-05-2024 Patient encounter procedure 01/05/2024 11:00 AM EDT Office Visit Psychiatry [address] [place] [phone] Wstr, Nurse [facility] [address] [place], [place] [phone] injection Psychiatry Comment on above: injection Start: 12-12-2023 End: 12-12-2023 Patient encounter procedure 12/12/2023 8:00 AM EDT Office Visit Psychiatry [address] [place] [phone] Wstr, Nurse [facility] [address] [place] [phone] INJECTION ONLY Psychiatry Comment on above: INJECTION ONLY Start: 12-05-2023 End: 12-05-2023 Patient encounter procedure 12/05/2023 8:00 AM EDT Office Visit Psychiatry [address] [place] [phone] Kathrine Hunter, DECORATING INSTRUCTOR.PLASTIC AND RECONSTRUCTIVE SURGEON [address] [place] [phone] INJECTION ONLY Psychiatry Comment on above: INJECTION ONLY Start: 12-03-2023 Covid-19 Vaccine ( season) Covid-19 Vaccine ( season) [facility] Start: 12-03-2023 Covid-19 Vaccine ( season) Covid-19 Vaccine ( season) [facility] Start: 12-03-2023 Influenza vaccination [facility] Start: 11-28-2023 End: 11-28-2023 Patient encounter procedure 11/28/2023 8:00 AM EDT Office Visit Psychiatry [address] [place] [phone] Wstr, Nurse [facility] [address] [place], [place] [phone] INJECTION ONLY Psychiatry Comment on above: INJECTION ONLY Start: 11-21-2023 End: 11-21-2023 Patient encounter procedure 11/21/2023 8:00 AM EDT Office Visit Psychiatry [address] [place] [phone] Kathrine Hunter, DECORATING INSTRUCTOR.PLASTIC AND RECONSTRUCTIVE SURGEON [address] [facility] [place] [phone] INJECTION ONLY Psychiatry Comment on above: INJECTION ONLY Start: 11-07-2023 End: 11-07-2023 Patient encounter procedure 11/07/2023 8:00 AM EDT Office Visit Psychiatry [address] [place] [phone] Kathrine Hunter, DECORATING INSTRUCTOR.PLASTIC AND RECONSTRUCTIVE SURGEON [address] [place] [phone] INJECTION AND FOLLOW UP Psychiatry Comment on above: INJECTION AND FOLLOW UP Start: 10-31-2023 End: 10-31-2023 Patient encounter procedure Psychiatry Comment on above: NURSE VISIT ONLY INJ ECTION Start: 10-17-2023 End: 10-17-2023 Patient encounter procedure 10/17/2023 8:00 AM EDT Office Visit Psychiatry [address] [place] [phone] Kathrine Hunter, DECORATING INSTRUCTOR.PLASTIC AND RECONSTRUCTIVE SURGEON [address] [place] [phone] NURSE VISIT ONLY INJECTION Psychiatry Comment on above: NURSE VISIT ONLY INJ ECTION Start: 10-03-2023 End: 10-03-2023 Patient encounter procedure 10/03/2023 8:00 AM EDT Office Visit Psychiatry [address] [place] [phone] Kathrine Hunter, DECORATING INSTRUCTOR.PLASTIC AND RECONSTRUCTIVE SURGEON [address] [place] [address] NURSE VISIT ONLY INJECTION Psychiatry Comment on above: NURSE VISIT ONLY INJ ECTION Start: 09-19-2023 End: 09-19-2023 Patient encounter procedure 09/19/2023 8:00 AM EDT Office Visit Psychiatry [address] [place] [phone] Kathrine Hunter, DECORATING INSTRUCTOR.PLASTIC AND RECONSTRUCTIVE SURGEON [address] [place] [phone] NURSE VISIT ONLY INJECTION Psychiatry Comment on above: NURSE VISIT ONLY INJ ECTION Start: 09-05-2023 End: 09-05-2023 Patient encounter procedure Psychiatry Comment on above: NURSE VISIT ONLY INJ ECTION INJECTION Start: 08-22-2023 End: 08-22-2023 Patient encounter procedure 08/22/2023 8:00 AM EDT Office Visit Psychiatry [address] [facility] [place] [phone] Kathrine Hunter, DECORATING INSTRUCTOR.PLASTIC AND RECONSTRUCTIVE SURGEON [address] [place] [phone] NURSE VISIT ONLY INJECTION Psychiatry Comment on above: NURSE VISIT ONLY INJ ECTION Start: 08-08-2023 End: 08-08-2023 Patient encounter procedure 08/08/2023 8:00 AM EDT Office Visit Psychiatry [address] [facility] [place] [phone] Kathrine Hunter, DECORATING INSTRUCTOR.PLASTIC AND RECONSTRUCTIVE SURGEON [address] [place] [phone] 4 TO 6 WEEK FOLLOW UP Psychiatry Comment on above: 4 TO 6 WEEK FOLLOW U P Start: 04-03-2023 Depression Assessment Depression Ass essment [facility] Start: 12-02-2022 Covid-19 Vaccine ( season) Covid-19 Vaccine ( season) [facility] Start: 12-02-2022 Influenza vaccination [facility] Start: 10-01-2022 Adult depression screening assessment DEPRESSION SCREENING [facility] Start: 07-05-2022 Adult depression screening assessment DEPRESSION SCREENING [facility] Start: 04-03-2022 DEPRESSION ASSESSMENT DEPRESSION ASS ESSMENT [facility] Start: 12-17-2021 Adult depression screening assessment DEPRESSION SCREENING [facility] Start: 12-02-2021 Influenza vaccination [facility] Start: 04-04-2021 COVID-19 VACCINE (3 - Booster for Pfizer series) COVID-19 VACCINE (3 - Booster for Pfizer series) [facility] Start: 04-03-2021 DEPRESSION ASSESSMENT DEPRESSION ASS ESSMENT [facility] Start: 12-28-2020 COVID-19 VACCINE (3 - Booster for Pfizer series) COVID-19 VACCINE (3 - Booster for Pfizer series) [facility] Start: 12-28-2020 COVID-19 VACCINE (3 - Pfizer series) COVID-19 VACCINE (3 - Pfizer series) [facility] Start: 12-02-2020 Influenza vaccination INFLUENZA (#1) [facility] Start: 2009 Hepatitis B Vaccine (1 of 3 - 19+ 3-dose series) Hepatitis B Vaccine (1 of 3 - 19+ 3-dose series) [facility] Start: 2009 Urine microalbumin profile [facility] Start: 2008 Anxiety Screening Anxiety Screening [facility] Start: 2008 Depression Screening Depression Scre ening [facility] Start: 2008 HEPATITIS C SCREENING HEPATITIS C [facility] Start: 2008 Hepatitis C screening Hepatitis C [facility] Start: 2008 HIV SCREENING HIV SCREENING [facility] Start: 2008 HIV screening HIV Screening [facility] Start: 1990 HEPATITIS B (1 of 3 - 3-dose series) HEPATITIS B (1 of 3 - 3-dose series) [facility] Start: 1990 Hepatitis B Vaccine (1 of 3 - 3-dose series) Hepatitis B Vaccine (1 of 3 - 3-dose series) [facility] Payers Date Payer Category Payer Unknown MMO [employer] PPO [id number] 2024-Present [phone] [address] [place] [address] PPO [id number] 2024 Unknown [id number] 2024 Private Health Insurance [id number] 2023 Self-pay 2023 Private Health Insurance [id number] 2021 Medicare [id number] 2021 Private Health Insurance [id number] [address] [facility] AARP MEDICAR E [facility] AAR MEDICARE HMO [id number] 2020-Present [phone] [address] [address] [place] [address] HMO [id number] Unknown [id number] Social History Date Type Detail Facility Start: 12-18-2020 End: 10-17-2023 Tobacco smoking status NHIS Ex-smoker [facility] Work Phone: Start: 12-18-2020 End: 10-17-2023 Tobacco use and exposure Smokeless tobacco non-user [facility] Work Phone: Start: 12-18-2020 End: 07-23-2024 Alcohol intake Current drinker of alcohol (finding) [facility] Start: 12-18-2020 History SDOH Alcohol Comment rarely [facility] Start: 1990 Sex Assigned At Male C [facility] History of tobacco use Current smoker [facility] Work Phone: Start: 07-05-2021 End: 01-05-2024 History of Social function [facility] Start: 07-05-2021 End: 01-05-2024 Tobacco use panel [facility] Adult Depression Screening Assessment 2 [facility] Start: 12-17-2020 Gender identity Identifies as male gender (finding) [facility] Start: 12-17-2020 Sexual orientation Heterosexual (andra martinez) [facility] Clinical Notes 06-21-2021 to 10-29-2024 Kathrine Hunter APRN.CNP - 10/29/2024 5:02 PM EDTTelephone Encounter - Evelyne Ortiz Clementina - 10/23/2024 9:13 AM EDTTelephone Encounter - Evelyne Ortiz Clementina - 10/23/2024 9:13 AM EDT Note Date & Type Note Facility 10-29-2024 Note HNO ID: [id number] Author: KATHRINE HUNTER APRN.CNP Service: ? Author Type: Nurse Practitioner Type: Progress Notes Filed: 10/29/2024 17:02 Note Text: Patient did not come in for his scheduled follow up appointment today. [facility] 10-29-2024 History of Presen t illness Narrative Patient did not come in for his scheduled follow up appointment today. documented in this encounter [facility] 10-23-2024 Telephone encounter Note Last: 07/23/24 TREATMENT PLAN: 1. 1. Schizoaffective disorder, bipolar type (HCC) (F25.0) Condition is stable. Patient is adherent to medication regimen, including Risperdal Consta injections, lamotrigine, and bupropion. No gaps in medication administration reported. - Continue current medication regimen. - Sent Risperdal Consta injection prescription to [facility]. - Follow-up in 3 months. 2. CLYDE (generalized anxiety disorder) (F41.1) Patient has not used hydroxyzine recently, which is prescribed as needed for anxiety management. Continue hydroxyzine as needed for anxiety symptoms. 3. Chronic post-traumatic stress disorder (PTSD) (F43.12) Patient has not used prazosin recently, which is prescribed as needed for PTSD-related symptoms. Continue prazosin as needed for PTSD-related symptoms, particularly if experiencing vivid dreams or trauma resurfacing. 4. Psychosocial stressors (Z65.8) Recent of premature infant and NICU stay have been significant stressors. Patient reports good family support and is utilizing mindfulness and grounding techniques. Encouraged continued use of mindfulness and grounding techniques. Prioritize sleep and rest for both patient and spouse. 5. Encounter for long-term (current) use of medications (Z79.899) Patient is adherent to long-term medication regimen, including Risperdal Consta injections, lamotrigine, bupropion, and doxycycline. No issues with medication refills reported, except for Risperdal Consta, which was on backorder but has been resolved. Ensure timely refills of all medications. Coordinate with pharmacy for Risperdal Consta availability. Next: 10/29/24 [facility] 10-23-2024 Miscellaneous Notes Last: 07/23/24 TREATMENT PLAN: 1. 1. Schizoaffective disorder, bipolar type (HCC) (F25.0) Condition is stable. Patient is adherent to medication regimen, including Risperdal Consta injections, lamotrigine, and bupropion. No gaps in medication administration reported. - Continue current medication regimen. - Sent Risperdal Consta injection prescription to [facility]. - Follow-up in 3 months. 2. CLYDE (generalized anxiety disorder) (F41.1) Patient has not used hydroxyzine recently, which is prescribed as needed for anxiety management. Continue hydroxyzine as needed for anxiety symptoms. 3. Chronic post-traumatic stress disorder (PTSD) (F43.12) Patient has not used prazosin recently, which is prescribed as needed for PTSD-related symptoms. Continue prazosin as needed for PTSD-related symptoms, particularly if experiencing vivid dreams or trauma resurfacing. 4. Psychosocial stressors (Z65.8) Recent of premature infant and NICU stay have been significant stressors. Patient reports good family support and is utilizing mindfulness and grounding techniques. Encouraged continued use of mindfulness and grounding techniques. Prioritize sleep and rest for both patient and spouse. 5. Encounter for long-term (current) use of medications (Z79.899) Patient is adherent to long-term medication regimen, including Risperdal Consta injections, lamotrigine, bupropion, and doxycycline. No issues with medication refills reported, except for Risperdal Consta, which was on backorder but has been resolved. Ensure timely refills of all medications. Coordinate with pharmacy for Risperdal Consta availability. Next: 10/29/24 documented in this encounter [facility] 09-23-2024 Telephone encounter Note In the absence of the patient's current psychiatric provider the chart was reviewed. A prescription for the requested medication was authorized. [facility] 09-23-2024 Miscellaneous Notes In the absence of the patient's current psychiatric provider the chart was reviewed. A prescription for the requested medication was authorized. Last: 07/23/24 TREATMENT PLAN: 1. 1. Schizoaffective disorder, bipolar type (HCC) (F25.0) Condition is stable. Patient is adherent to medication regimen, including Risperdal Consta injections, lamotrigine, and bupropion. No gaps in medication administration reported. - Continue current medication regimen. - Sent Risperdal Consta injection prescription to [facility]. - Follow-up in 3 months. 2. CLYDE (generalized anxiety disorder) (F41.1) Patient has not used hydroxyzine recently, which is prescribed as needed for anxiety management. Continue hydroxyzine as needed for anxiety symptoms. 3. Chronic post-traumatic stress disorder (PTSD) (F43.12) Patient has not used prazosin recently, which is prescribed as needed for PTSD-related symptoms. Continue prazosin as needed for PTSD-related symptoms, particularly if experiencing vivid dreams or trauma resurfacing. 4. Psychosocial stressors (Z65.8) Recent of premature infant and NICU stay have been significant stressors. Patient reports good family support and is utilizing mindfulness and grounding techniques. Encouraged continued use of mindfulness and grounding techniques. Prioritize sleep and rest for both patient and spouse. 5. Encounter for long-term (current) use of medications (Z79.899) Patient is adherent to long-term medication regimen, including Risperdal Consta injections, lamotrigine, bupropion, and doxycycline. No issues with medication refills reported, except for Risperdal Consta, which was on backorder but has been resolved. Ensure timely refills of all medications. Coordinate with pharmacy for Risperdal Consta availability. Next: 10/29/24 documented in this encounter [facility] 09-23-2024 Telephone encounter Note Last: 07/23/24 TREATMENT PLAN: 1. 1. Schizoaffective disorder, bipolar type (HCC) (F25.0) Condition is stable. Patient is adherent to medication regimen, including Risperdal Consta injections, lamotrigine, and bupropion. No gaps in medication administration reported. - Continue current medication regimen. - Sent Risperdal Consta injection prescription to [facility]. - Follow-up in 3 months. 2. CLYDE (generalized anxiety disorder) (F41.1) Patient has not used hydroxyzine recently, which is prescribed as needed for anxiety management. Continue hydroxyzine as needed for anxiety symptoms. 3. Chronic post-traumatic stress disorder (PTSD) (F43.12) Patient has not used prazosin recently, which is prescribed as needed for PTSD-related symptoms. Continue prazosin as needed for PTSD-related symptoms, particularly if experiencing vivid dreams or trauma resurfacing. 4. Psychosocial stressors (Z65.8) Recent of premature infant and NICU stay have been significant stressors. Patient reports good family support and is utilizing mindfulness and grounding techniques. Encouraged continued use of mindfulness and grounding techniques. Prioritize sleep and rest for both patient and spouse. 5. Encounter for long-term (current) use of medications (Z79.899) Patient is adherent to long-term medication regimen, including Risperdal Consta injections, lamotrigine, bupropion, and doxycycline. No issues with medication refills reported, except for Risperdal Consta, which was on backorder but has been resolved. Ensure timely refills of all medications. Coordinate with pharmacy for Risperdal Consta availability. Next: 10/29/24 [facility] 08-06-2024 Note HNO ID: [id number] Author: MARCIA DODD LPN Service: ? Author Type: LICENSED NURSE Type: Progress Notes Filed: 08/06/2024 13:40 Note Text: Patient arrives for Risperdal injection per Kathrine Hunter CNP. Patient has no complaints or concerns today about injection. Patient brought medication to visit, is explaining new insurance has dropped cost to 50$ for brand name medication is very happy about that. Will be picking up at pharmacy. Brand name is mixing better, leaving no white residue left in bottle. Patient feels this is a better option for him. Patient education given on SE of medication, patient verbalized understanding and agrees to proceed with treatment. Injection given and tolerated well. Next nurse visit scheduled for 08/20/2024 @ 4:30. Marcia Dodd LPN [facility] 08-06-2024 History of Presen t illness Narrative Patient arrives for Risperdal injection per Kathrine Hunter CNP. Patient has no complaints or concerns today about injection. Patient brought medication to visit, is explaining new insurance has dropped cost to 50$ for brand name medication is very happy about that. Will be picking up at pharmacy. Brand name is mixing better, leaving no white residue left in bottle. Patient feels this is a better option for him. Patient education given on SE of medication, patient verbalized understanding and agrees to proceed with treatment. Injection given and tolerated well. Next nurse visit scheduled for 08/20/2024 @ 4:30. Marcia Dodd LPN documented in this encounter [facility] 07-23-2024 Instructions Kathrine Hunter APRN.JOSÉ MIGUEL - 07/23/2024 1:57 PM EDT We discussed your mental health and medication management: - Continue taking your current medications as prescribed, including: - Lamotrigine (morning and night) - Bupropion (morning) - Doxycycline (morning and night) - Risperdal (oral at night and IM injection as scheduled) - Benztropine (night) - Hydroxyzine and Prazosin are to be taken as needed. You do not need to take these unless you experience anxiety or trauma-related sleep disturbances, such as vivid dreams. - Your Risperdal IM injection has been sent to [facility]. Please ensure you call ahead to confirm availability and pick it up as scheduled. If the generic is unavailable, the brand name will be provided. - Refills for your other medications are available at [facility]. Please contact the pharmacy or our office if you encounter any issues with refills. We discussed your recent experience with your and family support: - You and your are doing well managing the transition home with your . Continue to prioritize rest for both of you, as your baby is at a healthy weight and does not need to be woken for feedings at night. - Lean on your family support system as needed. Both your mother and [id number]-im-ayy have been helpful, and it s important to continue utilizing their assistance when necessary. - Take time to review the resources provided by the hospital, including information on sleep training, occupational therapy, and support, as you get more settled at home. We discussed your mental health strategies: - Continue practicing mindfulness, grounding techniques, and other coping skills during your daily routine to maintain your mental health. - If you notice increased stress, difficulty sleeping, or trauma-related symptoms, consider using Prazosin or Hydroxyzine as needed and reach out to our office for further support. Follow-Up: - Your next follow-up appointment is scheduled for 3 months from now. Please contact our office sooner if any issues arise with your medications, mental health, or other concerns. For those experiencing a suicidal crisis: --call the National Suicide Prevention Lifeline at 262 (350-247-3265) --text the Crisis Text Line (text HOME to 394850) --call 175 and let them know you are having a mental health crisis or go to your nearest Emergency Room for stabilization. --You can also call Mobile Crisis at [phone]. -- You may call the department appointment line at [phone] to schedule your appointment. -- Please call my nurse at [phone] or send me a message in [employer] with any questions or concerns between appointments. documented in this encounter [facility] 07-23-2024 Note HNO ID: [id number] Author: KATHRINE HUNTER APRN.CNP Service: ? Author Type: Nurse Practitioner Type: Progress Notes Filed: 07/23/2024 13:57 Note Text: FOLLOW UP - PSYCHIATRIC PROGRESS NOTE Visit Type: In person Recording using [employer] software for draft documentation of the visit was discussed with the patient/authorized product sales representative; all questions welcomed and answered. Patient/authorized product sales representative agreed to proceed CC: Outpatient follow-up and safety monitoring of previously prescribed psychiatric medication, psychotherapy or other treatment HPI: Patient is a 34-year-old male with a history of Schizoaffective disorder and PTSD presenting for follow-up after the of his first child. Patient reports a recent significant life event: the of his first child, who was born prematurely at 35 weeks and required a 2-week stay in the NICU. The infant is now 2 weeks old and has been home since Monday. The patient describes the NICU experience as stressful but notes that the infant is doing well, eating and drinking adequately, and has gained weight, now weighing 6 lbs 7 oz, above his weight of 6 lbs 4 oz. The patient recounts a particularly challenging night when his experienced complications during delivery, including a retained placenta that required a 3-hour surgery and resulted in significant blood loss (1,300 cc's). He describes this period as rough and expresses gratitude for the support of his [id number], who was able to assist during this time. Since returning home, the patient reports that he and his have been working well together as a team to care for their . They take turns with night feedings, allowing each other to rest. He mentions one particularly rough night when he forgot to use his CPAP machine and overslept, but overall, he reports that they have been managing well. He notes that the baby has been adjusting to the new environment and has been sleeping better with the help of NICU sounds played from [employer]. The patient has been able to maintain his medication regimen, including lamotrigine, bupropion, risperidone, and benztropine. He temporarily stopped taking prazosin and hydroxyzine, which are prescribed as needed for anxiety and trauma-related sleep disturbances, to avoid excessive sedation during this period. He expresses interest in resuming prazosin if needed in the future. He reports strong family support, particularly from his mother and [id number]-[id number]-itk, who have been respectful and helpful during this time. His pwlhhv-dm-too was instrumental in administering his risperidone injection during the NICU stay, ensuring no gap in his medication. The patient has a month of paternity leave remaining, which he believes will help with the transition to parenthood. He is vigilant about his mental health, practicing mindfulness and grounding techniques during his daily routines to maintain stability. Risks and benefits of the medication, including any black box warnings, were discussed with the patient. Interval Progress: Same PATIENT DATA: Generalized Anxiety Disorder Scale (CLYDE-7) 09/05/2023 09/19/2023 02/20/2024 CLYDE - 7 SCORES Score 1 1 0 (0-4) minimal anxiety, (5-9) mild anxiety, (10-14) moderate anxiety, (15-21) severe anxiety Patient Health Questionnaire (PHQ-9) 09/05/2023 09/19/2023 02/20/2024 PHQ-9 Score 4 1 2 (0-4) minimal depression, (5-9) mild depression, (10-14) moderate depression, (15-19) moderately severe depression, (20-27) severe depression History reviewed. No pertinent past medical history. No past surgical history on file. ALLERGIES No Known Allergies Current Outpatient Medications on File Prior to Visit Medication Sig risperiDONE Microspheres (RISPERDAL CONSTA) 12.5 mg/2 mL susp,ERrecon INJECT 4 ML INTRAMUSCULARLY EVERY TWO WEEKS buPROPion XL (WELLBUTRIN XL) 300 mg 24 hr tablet take 1 tablet by mouth once daily in the morning lamoTRIgine (LAMICTAL) 150 mg tablet Take 1 tablet by mouth once daily. risperiDONE (RISPERDAL) 4 mg tablet Take 1 tablet by mouth daily at bedtime. prazosin (MINIPRESS) 2 mg cap Take 1 capsule by mouth at bedtime as needed. hydrOXYzine HCl (ATARAX) 25 mg tablet TAKE 1 TABLET BY MOUTH THREE TIMES DAILY NEEDED FOR ANXIETY benztropine (COGENTIN) 0.5 mg tablet Take 1 tablet by mouth two times a day. Fenofibrate (LOFIBRA) 54 mg tablet Current Facility-Administered Medications on File Prior to Visit Medication risperiDONE Microspheres 12.5 mg (RisperDAL CONSTA) ROS: See HPI PFSH: See HPI VITAL SIGNS: There were no vitals filed for this visit. MENTAL STATUS EXAM: Appearance: Well dressed, well groomed Behavior: Behaves appropriately during the encounter Social relatedness: Euthymic Speech/Language: The patient demonstrates appropriate tone, prosody, nacho, phonetics, and syntax Mood: euthymic Affect: Full and appropriate to top (more content not included)... [facility] 07-23-2024 History of Presen t illness Narrative FOLLOW UP - PSYCHIATRIC PROGRESS NOTE Visit Type: In person Recording using [employer] software for draft documentation of the visit was discussed with the patient/authorized product sales representative; all questions welcomed and answered. Patient/authorized product sales representative agreed to proceed CC: Outpatient follow-up and safety monitoring of previously prescribed psychiatric medication, psychotherapy or other treatment HPI: Patient is a 34-year-old male with a history of Schizoaffective disorder and PTSD presenting for follow-up after the of his first child. Patient reports a recent significant life event: the of his first child, who was born prematurely at 35 weeks and required a 2-week stay in the NICU. The infant is now 2 weeks old and has been home since Monday. The patient describes the NICU experience as stressful but notes that the is doing well, eating and drinking adequately, and has gained weight, now weighing 6 lbs 7 oz, above his weight of 6 lbs 4 oz. The patient recounts a particularly challenging night when his experienced complications during delivery, including a retained placenta that required a 3-hour surgery and resulted in significant blood loss (1,300 cc's). He describes this period as rough and expresses gratitude for the support of his xqcyol-lp-fmp, who was able to assist during this time. Since returning home, the patient reports that he and his have been working well together as a team to care for their . They take turns with night feedings, allowing each other to rest. He mentions one particularly rough night when he forgot to use his CPAP machine and overslept, but overall, he reports that they have been managing well. He notes that the baby has been adjusting to the new environment and has been sleeping better with the help of NICU sounds played from [employer]. The patient has been able to maintain his medication regimen, including lamotrigine, bupropion, risperidone, and benztropine. He temporarily stopped taking prazosin and hydroxyzine, which are prescribed as needed for anxiety and trauma-related sleep disturbances, to avoid excessive sedation during this period. He expresses interest in resuming prazosin if needed in the future. He reports strong family support, particularly from his mother and gemaph-wt-mpe, who have been respectful and helpful during this time. His auzhbx-oo-khf was instrumental in administering his risperidone injection during the NICU stay, ensuring no gap in his medication. The patient has a month of paternity leave remaining, which he believes will help with the transition to parenthood. He is vigilant about his mental health, practicing mindfulness and grounding techniques during his daily routines to maintain stability. Risks and benefits of the medication, including any black box warnings, were discussed with the patient. Interval Progress: Same PATIENT DATA: Generalized Anxiety Disorder Scale (CLYDE-7) 09/05/2023 09/19/2023 02/20/2024 CLYDE - 7 SCORES Score 1 1 0 (0-4) minimal anxiety, (5-9) mild anxiety, (10-14) moderate anxiety, (15-21) severe anxiety Patient Health Questionnaire (PHQ-9) 09/05/2023 09/19/2023 02/20/2024 PHQ-9 Score 4 1 2 (0-4) minimal depression, (5-9) mild depression, (10-14) moderate depression, (15-19) moderately severe depression, (20-27) severe depression History reviewed. No pertinent past medical history. No past surgical history on file. ALLERGIES No Known Allergies Current Outpatient Medications on File Prior to Visit Medication Sig risperiDONE Microspheres (RISPERDAL CONSTA) 12.5 mg/2 mL susp,ERrecon INJECT 4 ML INTRAMUSCULARLY EVERY TWO WEEKS buPROPion XL (WELLBUTRIN XL) 300 mg 24 hr tablet take 1 tablet by mouth once daily in the morning lamoTRIgine (LAMICTAL) 150 mg tablet Take 1 tablet by mouth once daily. risperiDONE (RISPERDAL) 4 mg tablet Take 1 tablet by mouth daily at bedtime. prazosin (MINIPRESS) 2 mg cap Take 1 capsule by mouth at bedtime as needed. hydrOXYzine HCl (ATARAX) 25 mg tablet TAKE 1 TABLET BY MOUTH THREE TIMES DAILY NEEDED FOR ANXIETY benztropine (COGENTIN) 0.5 mg tablet Take 1 tablet by mouth two times a day. Fenofibrate (LOFIBRA) 54 mg tablet Current Facility-Administered Medications on File Prior to Visit Medication risperiDONE Microspheres 12.5 mg (RisperDAL CONSTA) ROS: See HPI PFSH: See HPI VITAL SIGNS: There were no vitals filed for this visit. MENTAL STATUS EXAM: Appearance: Well dressed, well groomed Behavior: Behaves appropriately during the encounter Social relatedness: Euthymic Speech/Language: The patient demonstrates appropriate tone, prosody, nacho, phonetics, and syntax Mood: euthymic Affect: Full and appropriate to topic Orientation: Person, Place, Time and Situation Associations: Intact and linear Hallucinations: None Delusions: None Suicidal Ideation: No suicidal ideation, intent or plan. Homicidal Ideation: No homicidal ideation, intent or plan. Insight: Appropriate Judgment: Appropriate DATA REVIEWED: Psychiatric scales, Electronic medical record, lab results DIAGNOSIS: Schizoaffective disorder, bipolar type (hcc) (primary encounter diagnosis) [place] (generalized anxiety disorder) Chronic post-traumatic stress disorder (ptsd) Psychosocial stressors Encounter for long-term (current) use of medications GAF: -[id number] If symptoms are present, they are transient and expectable reactions to psychosocial stressors TREATMENT PLAN: 1. 1. Schizoaffective disorder, bipolar type (HCC) (F25.0) Condition is stable. Patient is adherent to medication regimen, including Risperdal Consta injections, lamotrigine, and bupropion. No gaps in medication administration reported. - Continue current medication regimen. - Sent Risperdal Consta injection prescription to [facility]. - Follow-up in 3 months. 2. CLYDE (generalized anxiety disorder) (F41.1) Patient has not used hydroxyzine recently, which is prescribed as needed for anxiety management. Continue hydroxyzine as needed for anxiety symptoms. 3. Chronic post-traumatic stress disorder (PTSD) (F43.12) Patient has not used prazosin recently, which is prescribed as needed for PTSD-related symptoms. Continue prazosin as needed for PTSD-related symptoms, particularly if experiencing vivid dreams or trauma resurfacing. 4. Psychosocial stressors (Z65.8) Recent of premature infant and NICU stay have been significant stressors. Patient reports good family support and is utilizing mindfulness and grounding techniques. Encouraged continued use of mindfulness and grounding techniques. Prioritize sleep and rest for both patient and spouse. 5. Encounter for long-term (current) use of medications (Z79.899) Patient is adherent to long-term medication regimen, including Risperdal Consta injections, lamotrigine, bupropion, and doxycycline. No issues with medication refills reported, except for Risperdal Consta, which was on backorder but has been resolved. Ensure timely refills of all medications. Coordinate with pharmacy for Risperdal Consta availability. MEDICATION CHANGES: Current medication regimen unchanged. Prescriptions given - Reviewed Lamictal titration & risk of severe rash. Instructed to call RICARDO if this occurs. Patient denies any involuntary movement related side effects. Risks and benefits of the medication, including any black box warnings, were discussed with the patient. Patient is aware to reach out with any questions, concerns, or worsening of symptoms prior to the next appointment. Patient educated on risks of substance use in combination with medications and advised that any substance use along with medications may alter their effectiveness. Follow Up: 3 months Medical Decision Making: Problems: Moderate: 2+ stable chronic illnesses Data: Unique source(s) for external note(s) reviewed: 3+ Unique test result(s) reviewed: 3+ Risk: High: High risk from testing/treatment and Drug therapy requiring intensive monitoring Medical Decision Making Level: 4 - Moderate ADD ON PSYCHOTHERAPY CODE : No SIGNATURE: Ktahrine Hunter APRN.CNP PATIENT NAME: Leny Issa DATE: July 23, 2024 TIME: 1:55 PM documented in this encounter [facility] 07-19-2024 Telephone encounter Note Edmar, Pharmacist calling from [facility], with questions regarding pt's risperidone injection prescription. Questions answered. Brenda Fuller RN [facility] 07-19-2024 Miscellaneous Notes Edmar, Pharmacist calling from [facility], with questions regarding pt's risperidone injection prescription. Questions answered. Brenda Fuller, RN documented in this encounter [facility] 07-17-2024 Telephone encounter Note Addressed in a separate phone encounter. [facility] 07-17-2024 Miscellaneous Notes Addressed in a separate phone encounter. Message left needing pharmacy info for injection rx. [facility] to get. Marcia Dodd LPN documented in this encounter [facility] 07-17-2024 Telephone encounter Note Message left needing pharmacy info for injection rx. [facility] to get. Marcia Dodd LPN [facility] 07-15-2024 Telephone encounter Note Message left for patient to call back about another pharmacy for rx IM injection. [facility]'t [facility]. Marcia Dodd LPN [facility] 07-15-2024 Miscellaneous Notes Message left for patient to call back about another pharmacy for rx IM injection. [facility]. Marcia Dodd LPN documented in this encounter [facility] 07-09-2024 Telephone encounter Note Patient's appointment has been rescheduled. [facility] 07-09-2024 Miscellaneous Notes Patient's appointment has been rescheduled. documented in this encounter [facility] 07-09-2024 Note HNO ID: [id number] Author: KATHRINE HUNTER APRN.JOSÉ MIGUEL Service: ? Author Type: Nurse Practitioner Type: Progress Notes Filed: 07/09/2024 16:32 Note Text: Appointment was cancelled that day of the appointment due to a family emergency. Patient has been assisted in rescheduling his appointment. [facility] 07-09-2024 Telephone encounter Note Call placed to patient, will reschedule OV with provider and next IM injection. Patient will check my chart for day and time. [facility]: refills, will message via [employer]. Marcia Dodd LPN [facility] 07-09-2024 Miscellaneous Notes Call placed to patient, will reschedule OV with provider and next IM injection. Patient will check my chart for day and time. [facility]: refills, will message via [employer]. Marcia Dodd LPN Okay for the patient to come in just for an injection based on when it works with the nurse schedule. He can cancel his visit with me today. Pt reports he is scheduled with Kathrine today to get an injection. Reports his baby was born 2 days ago, was born early and is in NICU at [facility]. Pt is at home right now, but needs to return to [facility]. Asking if there is any way he can come in this morning to get the injection? Please phone patient with reply: [phone] documented in this encounter [facility] 07-09-2024 Telephone encounter Note Okay for the patient to come in just for an injection based on when it works with the nurse schedule. He can cancel his visit with me today. [facility] 07-09-2024 Telephone encounter Note Pt reports he is scheduled with Kathrine today to get an injection. Reports his baby was born 2 days ago, was born early and is in NICU at [facility]. Pt is at home right now, but needs to return to [facility]. Asking if there is any way he can come in this morning to get the injection? Please phone patient with reply: [phone] [facility] 07-02-2024 Telephone encounter Note Medication has already been refilled. [facility] 07-02-2024 Miscellaneous Notes Medication has already been refilled. Next OV 07/09/24 Marcia Dodd LPN documented in this encounter [facility] 07-02-2024 Telephone encounter Note Next OV 07/09/24 Marcia Dodd LPN [facility] 07-02-2024 Telephone encounter Note 90 day refill provided. Patient has a follow up appointment with this provider next week. [facility] 07-02-2024 Miscellaneous Notes 90 day refill provided. Patient has a follow up appointment with this provider next week. Last: 02/20/24 TREATMENT PLAN: Continue Risperdal injections as ordered every 2 weeks Continue oral Risperdal and Prazosin as ordered every night, Wellbutrin and Lamictal as ordered daily as well. Labs as ordered today: CMP, lipid panel and Hgb [id number] prior to next office visit. Follow up office visit in 3 months 05/28/24 No show Next: 07/09/24 documented in this encounter [facility] 07-02-2024 Telephone encounter Note Last: 02/20/24 TREATMENT PLAN: Continue Risperdal injections as ordered every 2 weeks Continue oral Risperdal and Prazosin as ordered every night, Wellbutrin and Lamictal as ordered daily as well. Labs as ordered today: CMP, lipid panel and Hgb [id number] prior to next office visit. Follow up office visit in 3 months 05/28/24 No show Next: 07/09/24 [facility] 06-28-2024 Telephone encounter Note Would it be possible for you to add a MAR to patient chart for me? Marcia Dodd LPN [facility] 06-28-2024 Miscellaneous Notes Would it be possible for you to add a MAR to patient chart for me? Marcia Dodd LPN documented in this encounter [facility] 06-26-2024 Note HNO ID: [id number] Author: MARCIA DODD LPN Service: ? Author Type: LICENSED NURSE Type: Progress Notes Filed: 07/09/2024 15:42 Note Text: Patient arrives for Risperdal injection per Kathrine Hunter CNP. Patient identified by name and . Medication brought to visit by patient. Patient has no questions or concerns at this time regarding medication. SE of medication given, verbalized understanding and agrees to proceed with treatment. Injection given, tolerated well. Patient reminded of next visit on 07/09/24 @ 4:30 in person with provider. Marcia Dodd LPN [facility] 06-26-2024 History of Presen t illness Narrative Patient arrives for Risperdal injection per Kathrine Hunter CNP. Patient identified by name and . Medication brought to visit by patient. Patient has no questions or concerns at this time regarding medication. SE of medication given, verbalized understanding and agrees to proceed with treatment. Injection given, tolerated well. Patient reminded of next visit on 07/09/24 @ 4:30 in person with provider. Marcia Dodd LPN documented in this encounter [facility] 06-11-2024 Note HNO ID: [id number] Author: MARCIA DODD LPN Service: ? Author Type: LICENSED NURSE Type: Progress Notes Filed: 06/11/2024 17:20 Note Text: Patient arrives for Risperdal injection per Kathrine Hunter CNP. Patient identified by name and . Medication brought to visit by patient. Patient has no questions or concerns at this time regarding medication. SE of medication given, verbalized understanding and agrees to proceed with treatment. Injection given, tolerated well. Next visit 06/25/24 @ 4:30. Marcia Dodd LPN [facility] 06-11-2024 History of Presen t illness Narrative Patient arrives for Risperdal injection per Kathrine Hunter CNP. Patient identified by name and . Medication brought to visit by patient. Patient has no questions or concerns at this time regarding medication. SE of medication given, verbalized understanding and agrees to proceed with treatment. Injection given, tolerated well. Next visit 06/25/24 @ 4:30. Marcia Dodd LPN documented in this encounter [facility] 06-11-2024 Telephone encounter Note Next visit 07/09/24 Next nurse visit 06/25/24 Marcia Dodd LPN [facility] 06-11-2024 Miscellaneous Notes Next visit 07/09/24 Next nurse visit 06/25/24 Marcia Dodd LPN documented in this encounter [facility] 06-10-2024 Telephone encounter Note Last: 02/20/24 TREATMENT PLAN: Continue Risperdal injections as ordered every 2 weeks Continue oral Risperdal and Prazosin as ordered every night, Wellbutrin and Lamictal as ordered daily as well. Labs as ordered today: CMP, lipid panel and Hgb [id number] prior to next office visit. Follow up office visit in 3 months 05/28/24 No show Next: 07/09/24 [facility] 06-10-2024 Miscellaneous Notes Last: 02/20/24 TREATMENT PLAN: Continue Risperdal injections as ordered every 2 weeks Continue oral Risperdal and Prazosin as ordered every night, Wellbutrin and Lamictal as ordered daily as well. Labs as ordered today: CMP, lipid panel and Hgb [id number] prior to next office visit. Follow up office visit in 3 months 05/28/24 No show Next: 07/09/24 documented in this encounter [facility] 05-28-2024 Note HNO ID: [id number] Author: KATHRINE HUNTER APRN.JOSÉ MIGUEL Service: ? Author Type: Nurse Practitioner Type: Progress Notes Filed: 05/28/2024 08:19 Note Text: Patient did not come in for his appointment with the provider today. [facility] 05-28-2024 History of Presen t illness Narrative Patient did not come in for his appointment with the provider today. documented in this encounter [facility] 05-27-2024 Telephone encounter Note Last: 03/06/24 TREATMENT PLAN: Continue Risperdal injections as ordered every 2 weeks Continue oral Risperdal and Prazosin as ordered every night, Wellbutrin and Lamictal as ordered daily as well. Labs as ordered today: CMP, lipid panel and Hgb [id number] prior to next office visit. Follow up office visit in 3 months Next: 05/31/24 [facility] 05-27-2024 Miscellaneous Notes Last: 03/06/24 TREATMENT PLAN: Continue Risperdal injections as ordered every 2 weeks Continue oral Risperdal and Prazosin as ordered every night, Wellbutrin and Lamictal as ordered daily as well. Labs as ordered today: CMP, lipid panel and Hgb [id number] prior to next office visit. Follow up office visit in 3 months Next: 05/31/24 documented in this encounter [facility] 05-14-2024 Note HNO ID: [id number] Author: MARCIA DODD LPN Service: ? Author Type: LICENSED NURSE Type: Progress Notes Filed: 05/20/2024 11:15 Note Text: Patient arrives for Risperdal injection per Kathrine Hunter CNP. Patient has no complaints or concerns today about injection. Patient brought medication to visit, is explaining new insurance has dropped cost to 10$ and is very happy about that. 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 Patient education given on SE of medication, patient verbalized understanding and agrees to proceed with treatment. Injection given and tolerated well. Next appointment scheduled for 05/28/2024 @ 8 am. Marcia Dodd LPN [facility] 04-30-2024 Note HNO ID: [id number] Author: MARCIA DODD LPN Service: ? Author Type: LICENSED NURSE Type: Progress Notes Filed: 04/30/2024 17:41 Note Text: Patient arrives for Risperdal injection per Kathrine Hunter CNP. Patient has no complaints or concerns today about injection. Patient brought medication to visit. Patient education given on SE of medication, patient verbalized understanding and agrees to proceed with treatment. Injection given and tolerated well. Next appointment scheduled for 05/14/2024 @ 4:30. Marcia Dodd LPN [facility] 04-30-2024 History of Presen t illness Narrative Patient arrives for Risperdal injection per Kathrine Hunter CNP. Patient has no complaints or concerns today about injection. Patient brought medication to visit. Patient education given on SE of medication, patient verbalized understanding and agrees to proceed with treatment. Injection given and tolerated well. Next appointment scheduled for 05/14/2024 @ 4:30. Marcia Dodd LPN documented in this encounter [facility] 04-30-2024 Instructions Marcia Dodd LPN - 04/30/2024 5:23 PM EST Patient arrives for Risperdal injection per Kathrine Huntre CNP. Patient has no complaints or concerns at this time. Brought own medication. Patient instructed on SE of medication, verbalized understanding and agrees to proceed with treatment. Injection tolerated well. Next appointment scheduled for 05/14/2024 @ 4:30. Marcia Dodd LPN documented in this encounter [facility] 04-24-2024 Telephone encounter Note Last: 02/20/24 TREATMENT PLAN: Continue Risperdal injections as ordered every 2 weeks Continue oral Risperdal and Prazosin as ordered every night, Wellbutrin and Lamictal as ordered daily as well. Labs as ordered today: CMP, lipid panel and Hgb [id number] prior to next office visit. Follow up office visit in 3 months Next: 05/28/24 [facility] 04-24-2024 Miscellaneous Notes Last: 02/20/24 TREATMENT PLAN: Continue Risperdal injections as ordered every 2 weeks Continue oral Risperdal and Prazosin as ordered every night, Wellbutrin and Lamictal as ordered daily as well. Labs as ordered today: CMP, lipid panel and Hgb [id number] prior to next office visit. Follow up office visit in 3 months Next: 05/28/24 documented in this encounter [facility] 2024 Note HNO ID: [id number] Author: MARCIA DODD LPN Service: ? Author Type: LICENSED NURSE Type: Progress Notes Filed: 2024 17:22 Note Text: Patient arrives for Risperdal injection per Kathrine Hunter CNP. Patient has no complaints or concerns at this time. Brought own medication. Patient instructed on SE of medication, verbalized understanding and agrees to proceed with treatment. Injection tolerated well. Next appointment scheduled for 04/01/24 @ 4:30. Marcia Dodd LPN [facility] 2024 History of Presen t illness Narrative Patient arrives for Risperdal injection per Kathrine Hunter CNP. Patient has no complaints or concerns at this time. Brought own medication. Patient instructed on SE of medication, verbalized understanding and agrees to proceed with treatment. Injection tolerated well. Next appointment scheduled for 04/01/24 @ 4:30. Marcia Dodd LPN documented in this encounter [facility] 03-06-2024 Miscellaneous Notes Patient has nurse appt every 2 week until next ov. Can you place new admin order for injection. Marcia Dodd LPN documented in this encounter [facility] 03-06-2024 Telephone encounter Note Patient has nurse appt every 2 week until next ov. Can you place new admin order for injection. Marcia Dodd LPN [facility] 03-05-2024 Note HNO ID: [id number] Author: MARCIA DODD LPN Service: ? Author Type: LICENSED NURSE Type: Progress Notes Filed: 03/08/2024 15:17 Note Text: Patient arrives for Risperdal injection per Kathrine Hunter CNP. Patient has no complaints or concerns at this time. Brought own medication. Patient instructed on SE of medication, verbalized understanding and agrees to proceed with treatment. Injection tolerated well. Marcia Dodd LPN [facility] 03-05-2024 History of Presen t illness Narrative Patient arrives for Risperdal injection per Kathrine Hunter CNP. Patient has no complaints or concerns at this time. Brought own medication. Patient instructed on SE of medication, verbalized understanding and agrees to proceed with treatment. Injection tolerated well. Marcia Dodd LPN documented in this encounter [facility] 02-26-2024 Instructions Kathrine Hunter APRN.CNP - 02/26/2024 11:01 PM EST TREATMENT PLAN: Continue Risperdal injections as ordered every 2 weeks Continue oral Risperdal and Prazosin as ordered every night, Wellbutrin and Lamictal as ordered daily as well. Labs as ordered today: CMP, lipid panel and Hgb [id number] prior to next office visit. Follow up office visit in 3 months For those experiencing a suicidal crisis: --call the National Suicide Prevention Lifeline at 986 (864-787-5525) --text the Crisis Text Line (text HOME to 409987) --call 911 and let them know you are having a mental health crisis or go to your nearest Emergency Room for stabilization. --You can also call Mobile Crisis at [phone]. -- You may call the department appointment line at [phone] to schedule your appointment. -- Please call my nurse at [phone] or send me a message in [employer] with any questions or concerns between appointments. documented in this encounter [facility] 02-20-2024 Note HNO ID: [id number] Author: KATHRINE HUNTER APRN.CNP Service: ? Author Type: Nurse Practitioner Type: Progress Notes Filed: 02/26/2024 23:02 Note Text: FOLLOW UP - PSYCHIATRIC PROGRESS NOTE PATIENT: Leny Issa DATE: February 20, 2024 Visit Type:In person All information is from Patient report except when noted. This evaluation is NOT intended for forensic, disability or child custody purposes. Kathrine Ramon APRN.CNP, personally performed the services described in this documentation. All medical record entries made by the LATISHA student were at my direction and in my presence. I have reviewed the chart and discharge instructions (if applicable) and agree that the record reflects my personal performance and is accurate and complete. Kathrine Hunter APRN.JOSÉ MIGUEL February 26, 2024 10:58 PM CC: Presenting today for follow up regarding psychiatric medication management. HPI: Treatment Plan from Last Visit on 11/17/2023: TREATMENT PLAN: Continue psychiatric medications at the same dose. Continue Risperdal IM injections every 2 weeks. Order monitoring lab work at the next appointment. Today Tony shares that he has been doing way better on the new generic Risperdal. States it wasn't good at first in November but by end of December it has been getting better and is as effective as the previous brand name. States he is happy with the cost savings of almost $200. Has been consistently receiving his injections Q2 weeks. Shares that he and found out 2 months ago they are expecting a baby boy in August. is approximately 16 weeks along. doing well health teresa with the . Denies any worries or stress about the .Uses acronym HALT: (hungry, angry, lonely and tired) to check in with himself and make sure he is doing ok. Discussed how anxiety can affect the dad as well as the mom. Discussed increasing frequency of mental health visits during the period or see a counselor. Doesn't have one currently but is open to considering it. Discussed importance of prioritizing his needs such as nutrition and sleep to make sure he is in a good position to care for the baby along with his . Mom and mother in law are planning to watch the baby. Has some concerns about mother in regards to boundary concerns and behaviors. 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 Discussed setting boundaries and expectations and have those discussions prior to the baby being born. Sleeping well, 6-8 hours per night. CPAP working good for him. No nightmares or incontinence. Had some daytime sleepiness several months ago which has resolved. Taking Prazosin and Risperdal at HS as ordered. Inquires about decreasing dose of Prazosin? Denies delusional thinking. Eating better. Trying to avoid processed foods. Eating more fresh foods and less carbs. Has h/o binge eating/overeating but reports he has not been doing that. Weight is down 3 lbs from last visit. Reports he had an episode of chest pain last month-went to ER. Everything determined to be normal. Attributed it to palpitations from too much caffeine. Reported that he drank coffee and energy drinks that day. Trying to be more mindful of that and limiting caffeine. Interval Progress: Improved PATIENT DATA: Generalized Anxiety Disorder Scale (CLYDE-7) 09/05/2023 09/19/2023 02/20/2024 CLYDE - 7 SCORES Score 1 1 0 (0-4) minimal anxiety, (5-9) mild anxiety, (10-14) moderate anxiety, (15-21) severe anxiety Patient Health Questionnaire (PHQ-9) 09/05/2023 09/19/2023 02/20/2024 PHQ-9 Score 4 1 2 (0-4) minimal depression, (5-9) mild depression, (10-14) moderate depression, (15-19) moderately severe depression, (20-27) severe depression History reviewed. No pertinent past medical history. No past surgical history on file. ALLERGIES No Known Allergies Current Outpatient Medications on File Prior to Visit Medication Sig risperiDONE Microspheres (RISPERDAL CONSTA) 12.5 mg/2 mL susp,ERrecon INJECT 4 ML INTRAMUSCULARLY EVERY TWO WEEKS prazosin (MINIPRESS) 2 mg cap Take 1 capsule by mouth daily at bedtime. lamoTRIgine (LAMICTAL) 150 mg tablet Take 1 tablet by mouth once daily. risperiDONE (RISPERDAL) 4 mg tablet Take 1 tablet by mouth daily at bedtime. benztropine (COGENTIN) 0.5 mg tablet Take 1 tablet by mouth two times a day. buPROPion XL (WELLBUTRIN XL) 300 mg 24 hr tablet take 1 tablet by mouth once daily in the morning Fenofibrate (LOFIBRA) 54 mg tablet No current facility-administered medications on file prior to visit. ROS: See HPI PFSH: See HPI VITAL SIGNS: 02/20/24 0804 BP: 140/80 Pulse: 64 Resp: 16 Weight: 108 kg (238 lb) Last 3 Encounter BP Readings: Date: BP: 02/20/2024 140/80 11/17/2023 122/74 09/05/2023 124/88 MENTAL STATUS E (more content not included)... [facility] 02-20-2024 History of Presen t illness Narrative Images from the original note were not included. FOLLOW UP - PSYCHIATRIC PROGRESS NOTE PATIENT: Leny Issa DATE: February 20, 2024 Visit Type:In person All information is from Patient report except when noted. This evaluation is NOT intended for forensic, disability or child custody purposes. IKathrine APRN.JOSÉ MIGUEL, personally performed the services described in this documentation. All medical record entries made by the LATISHA student were at my direction and in my presence. I have reviewed the chart and discharge instructions (if applicable) and agree that the record reflects my personal performance and is accurate and complete. Kathrine Hunter APRN.CNP February 26, 2024 10:58 PM CC: Presenting today for follow up regarding psychiatric medication management. HPI: Treatment Plan from Last Visit on 11/17/2023: TREATMENT PLAN: Continue psychiatric medications at the same dose. Continue Risperdal IM injections every 2 weeks. Order monitoring lab work at the next appointment. Today Tony shares that he has been doing way better on the new generic Risperdal. States it wasn't good at first in November but by end of December it has been getting better and is as effective as the previous brand name. States he is happy with the cost savings of almost $200. Has been consistently receiving his injections Q2 weeks. Shares that he and found out 2 months ago they are expecting a baby boy in August. is approximately 16 weeks along. doing well health teresa with the . Denies any worries or stress about the .Uses acronym HALT: (hungry, angry, lonely and tired) to check in with himself and make sure he is doing ok. Discussed how anxiety can affect the dad as well as the mom. Discussed increasing frequency of mental health visits during the period or see a counselor. Doesn't have one currently but is open to considering it. Discussed importance of prioritizing his needs such as nutrition and sleep to make sure he is in a good position to care for the baby along with his . Mom and mother in law are planning to watch the baby. Has some concerns about mother in regards to boundary concerns and behaviors. 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 Discussed setting boundaries and expectations and have those discussions prior to the baby being born. Sleeping well, 6-8 hours per night. CPAP working good for him. No nightmares or incontinence. Had some daytime sleepiness several months ago which has resolved. Taking Prazosin and Risperdal at as ordered. Inquires about decreasing dose of Prazosin? Denies delusional thinking. Eating better. Trying to avoid processed foods. Eating more fresh foods and less carbs. Has h/o binge eating/overeating but reports he has not been doing that. Weight is down 3 lbs from last visit. Reports he had an episode of chest pain last month-went to ER. Everything determined to be normal. Attributed it to palpitations from too much caffeine. Reported that he drank coffee and energy drinks that day. Trying to be more mindful of that and limiting caffeine. Interval Progress: Improved PATIENT DATA: Generalized Anxiety Disorder Scale (CLYDE-7) 09/05/2023 09/19/2023 02/20/2024 CLYDE - 7 SCORES Score 1 1 0 (0-4) minimal anxiety, (5-9) mild anxiety, (10-14) moderate anxiety, (15-21) severe anxiety Patient Health Questionnaire (PHQ-9) 09/05/2023 09/19/2023 02/20/2024 PHQ-9 Score 4 1 2 (0-4) minimal depression, (5-9) mild depression, (10-14) moderate depression, (15-19) moderately severe depression, (20-27) severe depression History reviewed. No pertinent past medical history. No past surgical history on file. ALLERGIES No Known Allergies Current Outpatient Medications on File Prior to Visit Medication Sig risperiDONE Microspheres (RISPERDAL CONSTA) 12.5 mg/2 mL susp,ERrecon INJECT 4 ML INTRAMUSCULARLY EVERY TWO WEEKS prazosin (MINIPRESS) 2 mg cap Take 1 capsule by mouth daily at bedtime. lamoTRIgine (LAMICTAL) 150 mg tablet Take 1 tablet by mouth once daily. risperiDONE (RISPERDAL) 4 mg tablet Take 1 tablet by mouth daily at bedtime. benztropine (COGENTIN) 0.5 mg tablet Take 1 tablet by mouth two times a day. buPROPion XL (WELLBUTRIN XL) 300 mg 24 hr tablet take 1 tablet by mouth once daily in the morning Fenofibrate (LOFIBRA) 54 mg tablet No current facility-administered medications on file prior to visit. ROS: See HPI PFSH: See HPI VITAL SIGNS: 02/20/24 0804 BP: 140/80 Pulse: 64 Resp: 16 Weight: 108 kg (238 lb) Last 3 Encounter BP Readings: Date: BP: 02/20/2024 140/80 11/17/2023 122/74 09/05/2023 124/88 MENTAL STATUS EXAMINATION: Appearance: Well dressed, well groomed Behavior: Behaves appropriately during the encounter Social relatedness: Euthymic Speech/Language: The patient demonstrates appropriate tone, prosody, nacho, phonetics, and syntax Mood: euthymic Affect: Full and appropriate to topic Orientation: Person, Place, Time and Situation Associations: Intact and linear Hallucinations: None Delusions: None Suicidal Ideation: No suicidal ideation, intent or plan. Homicidal Ideation: No homicidal ideation, intent or plan. Insight: Appropriate Judgment: Appropriate DATA REVIEWED: Psychiatric scales, Electronic medical record, and labs. DIAGNOSIS: Schizoaffective disorder, bipolar type (hcc) (primary encounter diagnosis) Clyde (generalized anxiety disorder) Chronic post-traumatic stress disorder (ptsd) GAF: -80-71 If symptoms are present, they are transient and expectable reactions to psychosocial stressors TREATMENT PLAN: Continue Risperdal injections as ordered every 2 weeks Continue oral Risperdal and Prazosin as ordered every night, Wellbutrin and Lamictal as ordered daily as well. Labs as ordered today: CMP, lipid panel and Hgb [id number] prior to next office visit. Follow up office visit in 3 months MEDICATION CHANGES: Current medication regimen unchanged. Risks and benefits of the medication, including any black box warnings, were discussed with the patient. Patient is aware to reach out with any questions, concerns, or worsening of symptoms prior to the next appointment. Patient educated on risks of substance use in combination with medications and advised that any substance use along with medications may alter their effectiveness. Patient denies any involuntary movement related side effects. Follow Up: See Treatment Plan Medical Decision Making: Problems: Moderate: 2+ stable chronic illnesses Data: Unique source(s) for external note(s) reviewed: 1 Unique test result(s) reviewed: 2 Unique test(s) ordered: 3+ Risk: Moderate: Moderate risk from testing/treatment and Drug management Medical Decision Making Level: 4 - Moderate ADD ON PSYCHOTHERAPY CODE : No SIGNATURE: Kathrine Hunter APRN.CNP PATIENT NAME: Leny Issa DATE: February 20, 2024 TIME: 8:43 AM documented in this encounter [facility] 01-23-2024 Note HNO ID: [id number] Author: MARCIA DODD LPN Service: ? Author Type: LICENSED NURSE Type: Progress Notes Filed: 01/23/2024 16:57 Note Text: Patient arrived with his injectable medication, Risperidone, per Kathrine Hunter CNP. Patient denies side effect with medication at this time. Patient given 4 ml IM every 2 weeks. IM given in bilateral arms Tolerated well, no complaints noted. Nurse visit scheduled for 2 weeks. 02/13/2024 @ 4:30. Patient will come right after work. Marcia Dodd LPN [facility] 01-23-2024 History of Presen t illness Narrative Patient arrived with his injectable medication, Risperidone, per Kathrine Hunter CNP. Patient denies side effect with medication at this time. Patient given 4 ml IM every 2 weeks. IM given in bilateral arms Tolerated well, no complaints noted. Nurse visit scheduled for 2 weeks. 02/13/2024 @ 4:30. Patient will come right after work. Marcia Dodd LPN documented in this encounter [facility] 01-16-2024 Telephone encounter Note Last: 05/30/23 TREATMENT PLAN: 1.Continue psychiatric medications at the same dose. 2.Continue Risperdal IM injections every 2 weeks. 3.Order monitoring lab work at the next appointment. Next: 02/20/24 [facility] 01-16-2024 Miscellaneous Notes Last: 05/30/23 TREATMENT PLAN: 1.Continue psychiatric medications at the same dose. 2.Continue Risperdal IM injections every 2 weeks. 3.Order monitoring lab work at the next appointment. Next: 02/20/24 documented in this encounter [facility] 01-16-2024 Note HNO ID: [id number] Author: JONATAN BRUNSON APRN.CNP Service: ? Author Type: Nurse Practitioner Type: Progress Notes Filed: 01/16/2024 08:46 Note Text: Patient presents today complaining of an episode of chest pain that lasted about 30 minutes. He states he was driving and had left sided chest pain and a fluttering sensation in his chest. He notes that his father from a heart attack several months ago and he states that he had some blood work recently that showed some concerning issues and he is worried about his heart. He states that the chest pain has mostly resolved since. I explained to him that with this type of presentation he should be evaluated at an emergency department. Patient will go across the street to [place] emergency department for evaluation. Patient denies need for transportation. He was in no acute distress on my evaluation. [facility] 01-16-2024 History of Presen t illness Narrative Patient presents today complaining of an episode of chest pain that lasted about 30 minutes. He states he was driving and had left sided chest pain and a fluttering sensation in his chest. He notes that his father from a heart attack several months ago and he states that he had some blood work recently that showed some concerning issues and he is worried about his heart. He states that the chest pain has mostly resolved since. I explained to him that with this type of presentation he should be evaluated at an emergency department. Patient will go across the street to [place] emergency department for evaluation. Patient denies need for transportation. He was in no acute distress on my evaluation. documented in this encounter [facility] 01-05-2024 Note HNO ID: [id number] Author: MARCIA DODD LPN Service: ? Author Type: LICENSED NURSE Type: Progress Notes Filed: 01/15/2024 16:26 Note Text: Patient arrived with his injectable medication, Risperidone, per Kathrine Hunter CNP. Patient denies side effect with medication at this time. Patient given 4 ml IM every 2 weeks. IM given in bilateral arms LOT# [id number] exp. 09/2024. Tolerated well, no complaints noted. Nurse visit scheduled for 2 weeks. Marcia Dodd LPN [facility] 01-05-2024 History of Presen t illness Narrative Patient arrived with his injectable medication, Risperidone, per Kathrine Hunter CNP. Patient denies side effect with medication at this time. Patient given 4 ml IM every 2 weeks. IM given in bilateral arms LOT# [id number] exp. 09/2024. Tolerated well, no complaints noted. Nurse visit scheduled for 2 weeks. Marcia oDdd LPN documented in this encounter [facility] 01-04-2024 Telephone encounter Note TC to patient, scheduled nurse visit for injection. Marcia Dodd LPN [facility] 01-04-2024 Miscellaneous Notes TC to patient, scheduled nurse visit for injection. Marcia Dodd LPN Pt calling stating he is due for his risperdone injection. Advises he gets them every tewo weeks but is off schedule d/t there was a problem in getting the medication. Pt advises he is due now for his injection. Please contact pt to schedule nurse visit for this. Latia Devlin LPN documented in this encounter [facility] 01-04-2024 Telephone encounter Note Pt calling stating he is due for his risperdone injection. Advises he gets them every tewo weeks but is off schedule d/t there was a problem in getting the medication. Pt advises he is due now for his injection. Please contact pt to schedule nurse visit for this. Latia Devlin LPN [facility] 12-05-2023 Telephone encounter Note Last: 11/17/23 TREATMENT PLAN: 1.Continue psychiatric medications at the same dose. 2.Continue Risperdal IM injections every 2 weeks. 3.Order monitoring lab work at the next appointment. Next: 02/20/24 [facility] 12-05-2023 Miscellaneous Notes Last: 11/17/23 TREATMENT PLAN: 1.Continue psychiatric medications at the same dose. 2.Continue Risperdal IM injections every 2 weeks. 3.Order monitoring lab work at the next appointment. Next: 02/20/24 documented in this encounter [facility] 11-30-2023 Note HNO ID: [id number] Author: LEONIE RIOJAS LPN Service: ? Author Type: LICENSED NURSE Type: Progress Notes Filed: 11/30/2023 08:37 Note Text: Patient presents for Risperdal injection per Kathrine Hunter CNP. Denies any problems at this time. Brought own medication. Patient instructed on any SE of medication, verbalized understanding and agreed to proceed with treatment. Tolerated injection well. Leonie Riojas LPN [facility] 11-30-2023 History of Presen t illness Narrative Patient presents for Risperdal injection per Kathrine Hunter CNP. Denies any problems at this time. Brought own medication. Patient instructed on any SE of medication, verbalized understanding and agreed to proceed with treatment. Tolerated injection well. Leonie Riojas LPN documented in this encounter [facility] 11-20-2023 Instructions Kathrine Hunter APRN.CNP - 11/20/2023 11:49 AM EDT Joie Lei, It was good to talk with you today. Below is a summary of the plan that we discussed during your appointment for reference. Of course, if you have any questions or concerns do not hesitate to reach out to me via a message or call. Kathrine Luna APRN.CNP PLAN AND FOLLOW UP: TREATMENT PLAN: Continue psychiatric medications at the same dose. Continue Risperdal IM injections every 2 weeks. Order monitoring lab work at the next appointment. For those experiencing a suicidal crisis: --call the National Suicide Prevention Lifeline at 988 (587.272.1553) --text the Crisis Text Line (text HOME to 650437) --call 911 and let them know you are having a mental health crisis or go to your nearest Emergency Room for stabilization. --You can also call [facility] at [phone]. Next appointment: --Schedule in 3 months or sooner if needed -- You may call the department appointment line at [phone] to schedule your appointment. -- Please call my nurse at [phone] or send me a message in [employer] with any questions or concerns between appointments. documented in this encounter [facility] 11-17-2023 Note HNO ID: [id number] Author: KATHRINE HUNTER APRN.JOSÉ MIGUEL Service: ? Author Type: Nurse Practitioner Type: Progress Notes Filed: 11/20/2023 11:49 Note Text: FOLLOW UP - PSYCHIATRIC PROGRESS NOTE PATIENT: Leny Issa DATE: November 17, 2023 Visit Type:In person All information is from Patient report except when noted. This evaluation is NOT intended for forensic, disability or child custody purposes. CC: Presenting today for follow up regarding psychiatric medication management. HPI: Treatment Plan from Last Visit on 09/05/2023: Increase Prazosin to 2 mg as that has been more effective for his anxiety and vivid dreams at night. Continue the rest of the psychiatric medications at the same dose. Encouraged patient to use his CPAP consistently and work on incorporating more movement in his routine. Today Leny shares that he has been doing really well since the increase in Prazosin. Has been able to sleep well at night and no longer feels triggered by his trauma. Denies any side effects from the Prazosin. Did receive his IM injection for Risperdal and tolerated it well. Denies any side effects. Attends his appointments consistently every 2 weeks to take his injections. Has been sleeping better since he is using his CPAP consistently. Reports improvement in energy and motivation to workout and eat healthy again. is very supportive. Is able to manage stressors related to work well. Discussed feeling grateful the Risperdal IM is now available in a generic. This will significantly help with the cost of the medication. Does report some concerns about switching from the brand name formulation to generic. Reviewed things to monitor and reach out regarding this concern. Patient has taken oral Risperdal which is generic and has tolerated it well. Interval Progress: Improved PATIENT DATA: Generalized Anxiety Disorder Scale (CLYDE-7) 06/29/2023 09/05/2023 09/19/2023 CLYDE - 7 SCORES Score 4 1 1 (0-4) minimal anxiety, (5-9) mild anxiety, (10-14) moderate anxiety, (15-21) severe anxiety Patient Health Questionnaire (PHQ-9) 06/29/2023 09/05/2023 09/19/2023 PHQ-9 Score 11 4 1 (0-4) minimal depression, (5-9) mild depression, (10-14) moderate depression, (15-19) moderately severe depression, (20-27) severe depression No past medical history on file. No past surgical history on file. ALLERGIES No Known Allergies Current Outpatient Medications on File Prior to Visit Medication Sig prazosin (MINIPRESS) 2 mg cap Take 1 capsule by mouth daily at bedtime. benztropine (COGENTIN) 0.5 mg tablet Take 1 tablet by mouth two times a day. buPROPion XL (WELLBUTRIN XL) 300 mg 24 hr tablet take 1 tablet by mouth once daily in the morning lamoTRIgine (LAMICTAL) 150 mg tablet Take 1 tablet by mouth once daily. risperiDONE (RISPERDAL) 4 mg tablet Take 1 tablet by mouth daily at bedtime. risperiDONE Microspheres (RISPERDAL CONSTA) 12.5 mg/2 mL susp,ERrecon INJECT 4 ML INTRAMUSCULARLY EVERY TWO WEEKS hydrOXYzine HCl (ATARAX) 25 mg tablet Take 1 tablet by mouth three times a day as needed for anxiety. Fenofibrate (LOFIBRA) 54 mg tablet Current Facility-Administered Medications on File Prior to Visit Medication risperiDONE Microspheres 25 mg (RisperDAL CONSTA) ROS: See HPI PFSH: See HPI VITAL SIGNS: 11/17/23 1205 BP: 122/74 Pulse: 72 Resp: 16 Weight: 109.3 kg (241 lb) Last 3 Encounter BP Readings: Date: BP: 11/17/2023 122/74 09/05/2023 124/88 MENTAL STATUS EXAMINATION: Appearance: Well dressed, well groomed Behavior: Behaves appropriately during the encounter Social relatedness: Euthymic Speech/Language: The patient demonstrates appropriate tone, prosody, nacho, phonetics, and syntax Mood: euthymic Affect: Full and appropriate to topic Orientation: Person, Place, Time and Situation Associations: Intact and linear Hallucinations: None Delusions: None Suicidal Ideation: No suicidal ideation, intent or plan. Homicidal Ideation: No homicidal ideation, intent or plan. Insight: Appropriate Judgment: Appropriate DATA REVIEWED: Psychiatric scales, Electronic medical record, and Labs DIAGNOSIS: Schizoaffective disorder, bipolar type (hcc) (primary encounter diagnosis) Clyde (generalized anxiety disorder) Chronic post-traumatic stress disorder (ptsd) GAF: -80-71 If symptoms are present, they are transient and expectable reactions to psychosocial stressors TREATMENT PLAN: Continue psychiatric medications at the same dose. Continue Risperdal IM injections every 2 weeks. Order monitoring lab work at the next appointment. MEDICATION CHANGES: Current medication regimen unchanged. - Reviewed Lamictal titration AND risk of severe rash. Instructed to call RICARDO if this occurs. Risks and benefits of the medication, including any black box warnings, were discussed with the patient. Patient is aware to reach out with any questions, (more content not included)... [facility] 11-17-2023 History of Presen t illness Narrative Images from the original note were not included. FOLLOW UP - PSYCHIATRIC PROGRESS NOTE PATIENT: Leny Issa DATE: November 17, 2023 Visit Type:In person All information is from Patient report except when noted. This evaluation is NOT intended for forensic, disability or child custody purposes. CC: Presenting today for follow up regarding psychiatric medication management. HPI: Treatment Plan from Last Visit on 09/05/2023: Increase Prazosin to 2 mg as that has been more effective for his anxiety and vivid dreams at night. Continue the rest of the psychiatric medications at the same dose. Encouraged patient to use his CPAP consistently and work on incorporating more movement in his routine. Today Leny shares that he has been doing really well since the increase in Prazosin. Has been able to sleep well at night and no longer feels triggered by his trauma. Denies any side effects from the Prazosin. Did receive his IM injection for Risperdal and tolerated it well. Denies any side effects. Attends his appointments consistently every 2 weeks to take his injections. Has been sleeping better since he is using his CPAP consistently. Reports improvement in energy and motivation to workout and eat healthy again. is very supportive. Is able to manage stressors related to work well. Discussed feeling grateful the Risperdal IM is now available in a generic. This will significantly help with the cost of the medication. Does report some concerns about switching from the brand name formulation to generic. Reviewed things to monitor and reach out regarding this concern. Patient has taken oral Risperdal which is generic and has tolerated it well. Interval Progress: Improved PATIENT DATA: Generalized Anxiety Disorder Scale (CLYDE-7) 06/29/2023 09/05/2023 09/19/2023 CLYDE - 7 SCORES Score 4 1 1 (0-4) minimal anxiety, (5-9) mild anxiety, (10-14) moderate anxiety, (15-21) severe anxiety Patient Health Questionnaire (PHQ-9) 06/29/2023 09/05/2023 09/19/2023 PHQ-9 Score 11 4 1 (0-4) minimal depression, (5-9) mild depression, (10-14) moderate depression, (15-19) moderately severe depression, (20-27) severe depression No past medical history on file. No past surgical history on file. ALLERGIES No Known Allergies Current Outpatient Medications on File Prior to Visit Medication Sig prazosin (MINIPRESS) 2 mg cap Take 1 capsule by mouth daily at bedtime. benztropine (COGENTIN) 0.5 mg tablet Take 1 tablet by mouth two times a day. buPROPion XL (WELLBUTRIN XL) 300 mg 24 hr tablet take 1 tablet by mouth once daily in the morning lamoTRIgine (LAMICTAL) 150 mg tablet Take 1 tablet by mouth once daily. risperiDONE (RISPERDAL) 4 mg tablet Take 1 tablet by mouth daily at bedtime. risperiDONE Microspheres (RISPERDAL CONSTA) 12.5 mg/2 mL susp,ERrecon INJECT 4 ML INTRAMUSCULARLY EVERY TWO WEEKS hydrOXYzine HCl (ATARAX) 25 mg tablet Take 1 tablet by mouth three times a day as needed for anxiety. Fenofibrate (LOFIBRA) 54 mg tablet Current Facility-Administered Medications on File Prior to Visit Medication risperiDONE Microspheres 25 mg (RisperDAL CONSTA) ROS: See HPI PFSH: See HPI VITAL SIGNS: 11/17/23 1205 BP: 122/74 Pulse: 72 Resp: 16 Weight: 109.3 kg (241 lb) Last 3 Encounter BP Readings: Date: BP: 11/17/2023 122/74 09/05/2023 124/88 MENTAL STATUS EXAMINATION: Appearance: Well dressed, well groomed Behavior: Behaves appropriately during the encounter Social relatedness: Euthymic Speech/Language: The patient demonstrates appropriate tone, prosody, nacho, phonetics, and syntax Mood: euthymic Affect: Full and appropriate to topic Orientation: Person, Place, Time and Situation Associations: Intact and linear Hallucinations: None Delusions: None Suicidal Ideation: No suicidal ideation, intent or plan. Homicidal Ideation: No homicidal ideation, intent or plan. Insight: Appropriate Judgment: Appropriate DATA REVIEWED: Psychiatric scales, Electronic medical record, and Labs DIAGNOSIS: Schizoaffective disorder, bipolar type (hcc) (primary encounter diagnosis) Clyde (generalized anxiety disorder) Chronic post-traumatic stress disorder (ptsd) GAF: -80-71 If symptoms are present, they are transient and expectable reactions to psychosocial stressors TREATMENT PLAN: Continue psychiatric medications at the same dose. Continue Risperdal IM injections every 2 weeks. Order monitoring lab work at the next appointment. MEDICATION CHANGES: Current medication regimen unchanged. - Reviewed Lamictal titration & risk of severe rash. Instructed to call RICARDO if this occurs. Risks and benefits of the medication, including any black box warnings, were discussed with the patient. Patient is aware to reach out with any questions, concerns, or worsening of symptoms prior to the next appointment. Patient educated on risks of substance use in combination with medications and advised that any substance use along with medications may alter their effectiveness. Patient denies any involuntary movement related side effects. Follow Up: 3 months I spent a total of 26 minutes on the date of the service which included preparing to see the patient, [id number] patient care, completing clinical documentation, and counseling and educating the patient/family/caregiver, ordering medications/labs, and communication with other health care providers. ADD ON PSYCHOTHERAPY CODE : No SIGNATURE: Kathrine Hunter APRN.CNP PATIENT NAME: Leny Issa DATE: November 17, 2023 TIME: 12:36 PM documented in this encounter [facility] 10-31-2023 History of Presen t illness Narrative Patient presents for Risperdal injection. Denies any problems at this time. Brought own medication. Patient instructed on any SE of medication, verbalized understanding and agreed to proceed with treatment. Tolerated injection well. Leonie Riojas LPN documented in this encounter [facility] 10-27-2023 Telephone encounter Note Here is the ambulatory medication administration order for pt to complete nurse visits. Please file for upcoming appt on 10/31/23. Leonie Riojas LPN [facility] 10-27-2023 Miscellaneous Notes Here is the ambulatory medication administration order for pt to complete nurse visits. Please file for upcoming appt on 10/31/23. Leonie Riojas LPN documented in this encounter [facility] 10-17-2023 History of Presen t illness Narrative Patient presents for nurse visit to administer Risperdal. Denies any problems at this time. Brought own medication. Patient instructed on any SE of medication, verbalized understanding and agreed to proceed with treatment. Administered 12.5mg/2mL in right deltoid; administered 12.5mg/2mL in left deltoid. Patient tolerated well with no adverse reaction. Risperdal: Diluent: Lot: [id number] Lot: [id number] Exp: 07/2025 Exp: 04/2025 Leonie Riojas LPN documented in this encounter [facility] 10-03-2023 History of Presen t illness Narrative Patient here for Risperdal consta injection. Patient receives 4 ml IM every 2 weeks. Patient received 1 injection IM in left arm Lot # [id number] exp 07/27 Diluent NB53G exp 04/28. 2nd injection IM right arm Lot # [id number] exp 07/27 Diluent NB53G exp 04/28. Tolerated well without complaints. Patient brought own medications. documented in this encounter [facility] 09-19-2023 History of Presen t illness Narrative Patient here for Risperdal consta injection. Patient receives 4 ml IM every 2 weeks. Patient received 1 injection IM in left arm Lot # [id number] exp 07/27 Diluent NB53G exp 04/28. 2nd injection IM right arm Lot # [id number] exp 07/27 Diluent NB53G exp 04/28. Tolerated well without complaints. Patient brought own medications. documented in this encounter [facility] 09-05-2023 History of Presen t illness Narrative Patient here for Risperdal consta injection. Patient receives 4 ml IM every 2 weeks. Patient received 1 injection IM in left arm Lot # [id number] exp 07/27 Diluent NB53G exp 04/28. 2nd injection IM right arm Lot # [id number] exp 07/27 Diluent NB53G exp 04/28. Tolerated well without complaints. Patient brought own medications. Images from the original note were not included. FOLLOW UP - PSYCHIATRIC PROGRESS NOTE PATIENT: Leny Issa DATE: September 05, 2023 Visit Type:In person All information is from Patient report except when noted. This evaluation is NOT intended for forensic, disability or child custody purposes. Some elements were copied from the previous note which have been updated where appropriate and reflect current decision making from today September 05, 2023. CC: Presenting today for follow up regarding psychiatric medication management. HPI: Treatment Plan from Last Visit on 07/06/2023: 1. Increase Lamictal to address depressive symptoms. 2. Continue Wellbutrin, Risperdal, Cogentin, and Atarax at the same dose. 3. Encouraged patient to start individual psychotherapy again. Today Leny shares that he was running late due to moving to a house that is farther than his previous home and he misjudged the time that it would take him to get to [facility] for the appointment. Patient recently lost his father and he feels that it still has not hit me. Sister who also struggles with Schizoaffective disorder is having a harder time than him. The prazosin has helped his anxiety and nightmare symptoms. Noticed more benefit when taking 2 mg. Denies any side effects of dizziness or falls. Has also started using his CPAP continually which as helped his sleep. Also noticing some improvement in his energy level since restarting. He has not napped in a few weeks now. Denies any concerns with worsening paranoia and mood. Denies hallucinations currently. Thinks that the hallucinations that he was experiencing in March was scary for him. He is no longer walking around at night. Now feels that it might have been due to him not getting adequate sleep as he was not using CPAP. He has very good support in his . His PCP has prescribed an inhaler for him and that has helped him. Using a nasal spray has helped him wear that CPAP more comfortably. It has helped him to get the Risperdal injections consistently. Interval Progress: Slightly improved PATIENT DATA: Generalized Anxiety Disorder Scale (CLYDE-7) 08/15/2022 03/09/2023 06/29/2023 CLYDE - 7 SCORES Score 5 8 4 (0-4) minimal anxiety, (5-9) mild anxiety, (10-14) moderate anxiety, (15-21) severe anxiety Patient Health Questionnaire (PHQ-9) 03/09/2023 04/06/2023 06/29/2023 PHQ-9 Score 9 2 11 (0-4) minimal depression, (5-9) mild depression, (10-14) moderate depression, (15-19) moderately severe depression, (20-27) severe depression History reviewed. No pertinent past medical history. History reviewed. No pertinent surgical history. ALLERGIES No Known Allergies Current Outpatient Medications on File Prior to Visit Medication Sig prazosin (MINIPRESS) 1 mg cap Take 1 capsule by mouth daily at bedtime. (Patient taking differently: Take 1 mg by mouth daily at bedtime. 1 to 2 tablets as needed) benztropine (COGENTIN) 0.5 mg tablet Take 1 tablet by mouth two times a day. risperiDONE Microspheres (RISPERDAL CONSTA) 12.5 mg/2 mL susp,ERrecon INJECT 4 ML INTRAMUSCULARLY EVERY TWO WEEKS lamoTRIgine (LAMICTAL) 150 mg tablet Take 1 tablet by mouth once daily. buPROPion XL (WELLBUTRIN XL) 300 mg 24 hr tablet take 1 tablet by mouth once daily in the morning risperiDONE (RISPERDAL) 4 mg tablet Take 1 tablet by mouth daily at bedtime. Fenofibrate (LOFIBRA) 54 mg tablet No current facility-administered medications on file prior to visit. ROS: See HPI PFSH: See HPI VITAL SIGNS: 09/05/23 0821 BP: 124/88 Pulse: 80 Weight: 109.7 kg (241 lb 12.8 oz) Last 3 Encounter BP Readings: Date: BP: 09/05/2023 124/88 MENTAL STATUS EXAMINATION: Mental Status Exam General/Sensorium: Alert Orientation: AAOx3 Appearance: Casually dressed and appropriately groomed Eye contact: Appropriate Demeanor: Appropriately interactive Motor activity: Normal Speech: Articulate with appropriate rhythm and volume Mood: Euthymic Affect: Congruent with mood Thought process: Linear, logical, and goal-directed Associations: Normal Thought content: Discussing stressors, future goals or plans and focused on history, symptoms, and management Suicidal ideation: none Homicidal ideation: none Abnormal/psychotic thoughts: Absent Perceptions: He does not appear internally stimulated and denies hallucinations. Intelligence: Average Attention: Intact Memory: Short-term: Intact Long-term: Intact Language: Intact Fund of knowledge: Appropriate Insight: Improving Judgment: Improving Gait: Steady Station: Sitting DATA REVIEWED: Psychiatric scales, Electronic medical record, and Labs DIAGNOSIS: Schizoaffective disorder, biploar type Generalized Anxiety Disorder GAF: -60-51 Moderate symptoms or moderate difficulty in social, occupational or school functioning. TREATMENT PLAN: Increase Prazosin to 2 mg as that has been more effective for his anxiety and vivid dreams at night. Continue the rest of the psychiatric medications at the same dose. Encouraged patient to use his CPAP consistently and work on incorporating more movement in his routine. MEDICATION CHANGES: See above Risks and benefits of the medication, including any black box warnings, were discussed with the patient. He is aware of the rash side effect associated with Lamictal. Denies any history of seizures. Patient is aware to reach out with any questions, concerns, or worsening of symptoms prior to the next appointment. Patient educated on risks of substance use in combination with medications and advised that any substance use along with medications may alter their effectiveness. Patient denies any involuntary movement related side effects. Follow Up: 2 months I spent a total of 45 minutes on the date of the service which included preparing to see the patient, [id number] patient care, completing clinical documentation, and counseling and educating the patient/family/caregiver, ordering medications/labs. ADD ON PSYCHOTHERAPY CODE : No SIGNATURE: Kathrine Hunter APRN.CNP PATIENT NAME: Leny Issa DATE: September 05, 2023 TIME: 8:32 AM documented in this encounter [facility] 08-22-2023 History of Presen t illness Narrative Patient here for Risperdal consta injection. Patient receives 4 ml IM every 2 weeks. Patient received 1 injection IM in left arm Lot # [id number] exp 07/27 Diluent NB53G exp 04/28. 2nd injection IM right arm Lot # [id number] exp 07/27 Diluent NB53G exp 04/28. Tolerated well without complaints. Patient brought own medications. documented in this encounter [facility] 08-22-2023 Telephone encounter Note Prescription Refill Information The patient has been identified by name and date of : Yes Caregiver verified no other encounters exist for this prescription request: Yes Caregiver confirmed with patient/requestor that no other refills are due, in the near future, with this provider at this time: Yes Does the patient have a future office visit with this provider/department: Yes Requested Prescriptions Pending Prescriptions Disp Refills prazosin (MINIPRESS) 1 mg cap 30 capsule 0 Sig: Take 1 capsule by mouth daily at bedtime. Patient states doing well on the medication, did lose his father but has been sleeping better, feels the medication has helped, will keep follow up in 2 weeks. Mayi Irwin LPN August 22, 2023 8:41 AM [facility] 08-22-2023 Miscellaneous Notes Prescription Refill Information The patient has been identified by name and date of : Yes Caregiver verified no other encounters exist for this prescription request: Yes Caregiver confirmed with patient/requestor that no other refills are due, in the near future, with this provider at this time: Yes Does the patient have a future office visit with this provider/department: Yes Requested Prescriptions Pending Prescriptions Disp Refills prazosin (MINIPRESS) 1 mg cap 30 capsule 0 Sig: Take 1 capsule by mouth daily at bedtime. Patient states doing well on the medication, did lose his father but has been sleeping better, feels the medication has helped, will keep follow up in 2 weeks. Mayi Irwin LPN August 22, 2023 8:41 AM documented in this encounter [facility] 08-10-2023 Telephone encounter Note Noted. Appreciate the update. [facility] 08-10-2023 Miscellaneous Notes Noted. Appreciate the update. Patient given Risperdal injections today and tolerated well. Will follow up as scheduled. States he was to call today with update on additional medication but they still are dealing with fathers illness and today were told that his father will not recover from this so they are headed back to [place] to say goodbye and for services. Patient thinks that he is doing ok, he did bring his with him today, she states that he has not been waling around but he does snore and has been sitting up in bed but he also has not been wearing his sleep apnea machine and he is struggling with nasal congestion. He is going to start using the machine consistently this evening and will call with an update in a week or so. documented in this encounter [facility] 08-10-2023 Telephone encounter Note Patient given Risperdal injections today and tolerated well. Will follow up as scheduled. States he was to call today with update on additional medication but they still are dealing with fathers illness and today were told that his father will not recover from this so they are headed back to [place] to say goodbye and for services. Patient thinks that he is doing ok, he did bring his with him today, she states that he has not been waling around but he does snore and has been sitting up in bed but he also has not been wearing his sleep apnea machine and he is struggling with nasal congestion. He is going to start using the machine consistently this evening and will call with an update in a week or so. [facility] 08-10-2023 History of Presen t illness Narrative Patient here for Risperdal consta injection. Patient receives 4 ml IM every 2 weeks. Patient received 1 injection IM in left arm Lot # [id number] exp 07/27 Diluent NB53G exp 04/28. 2nd injection IM right arm Lot # [id number] exp 07/27 Diluent NB53G exp 04/28. Tolerated well without complaints. Patient brought own medications. documented in this encounter [facility] 08-10-2023 Telephone encounter Note Spoke to patient, will come in for injection today since Ali is in the office and keep other injections as scheduled. Patient states they did call them and let them know that his dad is not going to make it so they are headed there after this. [facility] 08-10-2023 Miscellaneous Notes Spoke to patient, will come in for injection today since Ali is in the office and keep other injections as scheduled. Patient states they did call them and let them know that his dad is not going to make it so they are headed there after this. Patient reports he is home today, and phoned asking for Mayi in Kathrine's office. Asking if Mayi would be able to give him his shots today? Please phone patient with reply. [phone] Reports Mayi knows the story behind this question- see 08-08-23 telephone encounter. documented in this encounter [facility] 08-10-2023 Telephone encounter Note Patient reports he is home today, and phoned asking for Mayi in Kathrine's office. Asking if Mayi would be able to give him his shots today? Please phone patient with reply. [phone] Reports Mayi knows the story behind this question- see 08-08-23 telephone encounter. [facility] 08-08-2023 History of Presen t illness Narrative Patient unable to attend the appointment due to a family emergency. See separate telephone encounter for more details. documented in this encounter [facility] 08-08-2023 Telephone encounter Note Appreciate the update. Agree with the plan. [facility] 08-08-2023 Miscellaneous Notes Appreciate the update. Agree with the plan. Contacted patient due to missed visit today. Patient states he is in [facility] due to his father having a massive heart attack and he forgot to call. He plans to return to [place] this evening and his mother in law will give his injection. Patient states he feels he is doing pretty good since the medication addition. His has not noticed any issues in the evening but he also is in different surroundings due to travel. Requested patient call towards the end of this week with an update once he returns home. Patient agreed to same. documented in this encounter [facility] 08-08-2023 Telephone encounter Note Contacted patient due to missed visit today. Patient states he is in [facility] due to his father having a massive heart attack and he forgot to call. He plans to return to [place] this evening and his mother in law will give his injection. Patient states he feels he is doing pretty good since the medication addition. His has not noticed any issues in the evening but he also is in different surroundings due to travel. Requested patient call towards the end of this week with an update once he returns home. Patient agreed to same. [facility] 08-04-2023 Telephone encounter Note Spoke with the patient in detail. Patient shares that he has experienced some nightmares that are vivid like this when he was younger. Patient has been under a lot of stress. We discussed the possibility of these vivid dreams and acting out dreams as a trauma response. Patient is in agreement to try Minipress to address trauma symptoms. The effects and side effects of all the medications were reviewed in detail with the patient. Patient was also asked to notify his about the Minipress that he will be trying at night and the side effects to monitor. Discussed gradually increasing Minipress to up to 3 mg if needed to manage his symptoms. Patient to call on Monday with an update. Has an in person appointment scheduled with this provider on Monday. [facility] 08-04-2023 Miscellaneous Notes Spoke with the patient in detail. Patient shares that he has experienced some nightmares that are vivid like this when he was younger. Patient has been under a lot of stress. We discussed the possibility of these vivid dreams and acting out dreams as a trauma response. Patient is in agreement to try Minipress to address trauma symptoms. The effects and side effects of all the medications were reviewed in detail with the patient. Patient was also asked to notify his about the Minipress that he will be trying at night and the side effects to monitor. Discussed gradually increasing Minipress to up to 3 mg if needed to manage his symptoms. Patient to call on Monday with an update. Has an in person appointment scheduled with this provider on Monday. Patient returned call and went over notes below. Patient said takes his Lamictal at 6 am during the week, at 9 am on weekends. He is not having any delusions during the day. He has not had vivid dreams or delusions before. He said his depression is doing better. He said he is tired when gets home from work does not wan to talk to anyone. He watches tv with his and/or listens to music in the evenings and goes to bed. that is when the issues begin. Left message to call office. Message to call office for more information. Can you please ask the patient what time he takes the Lamictal? Is he experiencing delusions during the day? The vivid dreams and delusions at night that he is currently experiencing, has he experienced something like that before? If so, when? How is his depression since we increased the Lamictal? Patient calls with update. He reports the past two weeks he has been having increased vivid/strange dreams. He reports that he sleeps sound and wakes rested but often from the hours of 11 pm to 5 am he is having periods of delusions and sleep walking and reports he isn't certain of what is real. He said last night and one other time he has actually got up and had a fall. Last night, he said he was going between feeling awake and asleep. He said he knew that he was standing up against the edge of the wall and he was telling himself not to go to sleep but he did it anyway's falling backwards into the wall bumping his head on the wall and waking up on the floor. He reports no injury to head but some left hand pain but not certain from what. He said he felt like his body was being forced to sleep. He was not certain how he go to the wall originally. He reports feeling well today and wide awake. Denies any suicidal thoughts or ideas. Patient noticed the changes a couple of weeks after the increase in Lamictal and asking for provider recommendations. Please review and advise, Alma Delia Soares RN documented in this encounter [facility] 08-04-2023 Telephone encounter Note Patient returned call and went over notes below. Patient said takes his Lamictal at 6 am during the week, at 9 am on weekends. He is not having any delusions during the day. He has not had vivid dreams or delusions before. He said his depression is doing better. He said he is tired when gets home from work does not wan to talk to anyone. He watches tv with his and/or listens to music in the evenings and goes to bed. that is when the issues begin. [facility] 08-04-2023 Telephone encounter Note Left message to call office. [facility] 08-03-2023 Telephone encounter Note Message to call office for more information. [facility] 08-03-2023 Telephone encounter Note Can you please ask the patient what time he takes the Lamictal? Is he experiencing delusions during the day? The vivid dreams and delusions at night that he is currently experiencing, has he experienced something like that before? If so, when? How is his depression since we increased the Lamictal? [facility] 08-03-2023 Telephone encounter Note Patient calls with update. He reports the past two weeks he has been having increased vivid/strange dreams. He reports that he sleeps sound and wakes rested but often from the hours of 11 pm to 5 am he is having periods of delusions and sleep walking and reports he isn't certain of what is real. He said last night and one other time he has actually got up and had a fall. Last night, he said he was going between feeling awake and asleep. He said he knew that he was standing up against the edge of the wall and he was telling himself not to go to sleep but he did it anyway's falling backwards into the wall bumping his head on the wall and waking up on the floor. He reports no injury to head but some left hand pain but not certain from what. He said he felt like his body was being forced to sleep. He was not certain how he go to the wall originally. He reports feeling well today and wide awake. Denies any suicidal thoughts or ideas. Patient noticed the changes a couple of weeks after the increase in Lamictal and asking for provider recommendations. Please review and advise, Alma Delia Soares RN [facility] 07-25-2023 History of Presen t illness Narrative Patient here for injection of Risperdal consta 25 mg/4 ml lot [id number] exp 07/2025. Patient brought own medication with him. Diluent Lot [id number] Exp 04/2025. Medication reconstituted per manufacturers instructions. 2 ml given in Right deltoid 2 ml given in Left deltoid Patient tolerated well without complaints. Patient will return in 2 weeks for FU and next injection. documented in this encounter [facility] 07-06-2023 History of Presen t illness Narrative FOLLOW UP - PSYCHIATRIC PROGRESS NOTE Visit Type:Virtual Visit utilizing two-way audio and video for at least a portion of the visit. Consent for virtual visit obtained verbally. Confidentiality limitations with virtual visits reviewed with the patient and guardian, if present, who have accepted the risk verbally prior to proceeding with encounter. I have communicated my name and active licensure. The patient's identity and physical location were verified at the time of this visit. Either the patient or their legal product sales representative has been informed of the risks and benefits of -- and alternatives to -- treatment through a remote evaluation and consents to proceed with the evaluation remotely. Reason for Visit: Outpatient follow-up and safety monitoring of previously prescribed psychiatric medication, psychotherapy or other treatment CC: Follow up for psychiatric medication management HPI: Treatment Plan from last visit on 04/06/2023: 1. Continue Psychiatric medications at the same dose. 2. Utilize hydroxyzine as needed to manage anxiety symptoms. 3. Schedule an appointment for individual psychotherapy. Patient would like to find an in person therapist not virtual. 4. Continue to engage in self-care and physical activities. Today Tony shares that he has been doing well. He is currently in the work parking lot. Discussed PHQ-9 score and the significant increase. He reports that he answered those questions honestly. Shares that last night he had a breakdown. Has stressors related to setting up the house. Has worries about paperwork related to taxes. SSDI now is saying that he owes $40,000 in back payment. This is compounding in more stress. The repayment is bothering him on more of a political front. It has upset him that he has worked so hard and he is getting penalized. He has to motivate himself often and give himself a pep talk. He aims to win more days then let the depression get to him. He tries to be more socially engaged. Has communicated with his [employer] supervisor about his struggles. He schedules his Risperdal shot with his mother in law. When his Risperdal shot is late, he notices more manic symptoms. He tires to be very diligent about scheduling Offered to have this provider's RN take over Im injections. Patient is accepting of this. Has been taking hydroxyzine 25 mg twice a day to help with anxiety on a daily basis. Sometimes he will take the 3rd tablet to manage life stressors. Has to take hydroxyzine before going to visit his mother and step father. He is concerned about girls feeling uncomfortable around step father. Has been thinking about starting a family. He used better help as that was easier for him due to on the go access. He does feel that it would be helpful to start therapy again. He has been walking more as they have a treadmill. He is trying to do a diet where he can eat more consistently. In the past he had noticed benefit from intermittent fasting. It helps with bloating and helps him think more clearly. Risks and benefits of the medication, including any black box warnings, were discussed with the patient. Interval Progress: Slightly worse PATIENT DATA: Generalized Anxiety Disorder Scale (CLYDE-7) 08/15/2022 03/09/2023 06/29/2023 CLYDE - 7 SCORES Score 5 8 4 (0-4) minimal anxiety, (5-9) mild anxiety, (10-14) moderate anxiety, (15-21) severe anxiety Patient Health Questionnaire (PHQ-9) 03/09/2023 04/06/2023 06/29/2023 PHQ-9 Score 9 2 11 (0-4) minimal depression, (5-9) mild depression, (10-14) moderate depression, (15-19) moderately severe depression, (20-27) severe depression PROMIS Global Health 08/15/2022 04/06/2023 06/29/2023 PROMIS Global Health - (T-Scores - the mean of general population = 50. Five points is a clinically meaningful difference.) Physical T-Score 42.3 44.9 42.3 Mental T-Score 43.5 48.3 45.8 History reviewed. No pertinent past medical history. History reviewed. No pertinent surgical history. Current Outpatient Medications Medication Sig Dispense Refill hydrOXYzine HCl (ATARAX) 25 mg tablet Take 1 tablet by mouth three times a day as needed for anxiety. 90 tablet 2 lamoTRIgine (LAMICTAL) 100 mg tablet Take 1 tablet by mouth once daily. 90 tablet 0 risperiDONE Microspheres (RISPERDAL CONSTA) 12.5 mg/2 mL susp,ERrecon INJECT 4 ML INTRAMUSCULARLY EVERY TWO WEEKS 4 Each 2 buPROPion XL (WELLBUTRIN XL) 300 mg 24 hr tablet take 1 tablet by mouth once daily in the morning 90 tablet 0 risperiDONE (RISPERDAL) 4 mg tablet Take 1 tablet by mouth daily at bedtime. 90 tablet 0 benztropine (COGENTIN) 0.5 mg tablet Take 1 tablet by mouth two times a day. 180 tablet 1 Fenofibrate (LOFIBRA) 54 mg tablet No current facility-administered medications for this visit. ROS: See HPI PFSH: See HPI VITAL SIGNS: There were no vitals filed for this visit. MENTAL STATUS EXAM: CONSTITUTIONAL: Casually dressed ORIENTATION: Person, Place, Time and Situation MEMORY: Recent intact, Remote intact, Immediate intact CONCENTRATION: Normal MOOD: sad AFFECT: Tearful SPEECH : Clear & distinct LANGUAGE : Normal ASSOCIATIONS: Intact THOUGHT PROCESS : Logical, Coherent, and Rational PROGRESSION : There was no evidence of disturbance in thought perception or progression. FUND OF KNOWLEDGE : Appropriate and Adequate SUICIDE: None HOMICIDE: None DATA REVIEWED: Psychiatric scales, Labs, and Electronic medical record DIAGNOSIS: PRIMARY: Schizoaffective Disorder, Bipolar type Secondary : Generalized Anxiety Disorder Other : none GAF: -60-51 Moderate symptoms or moderate difficulty in social, occupational or school functioning. TREATMENT PLAN: 1. Increase Lamictal to address depressive symptoms. 2. Continue Wellbutrin, Risperdal, Cogentin, and Atarax at the same dose. 3. Encouraged patient to start individual psychotherapy again. MEDICATION CHANGES: - Lamictal increased to 150 mg dose. - Reviewed Lamictal titration & risk of severe rash. Instructed to call RICARDO if this occurs. - Patient denies any involuntary movement related side effects. Follow Up: 4 weeks I spent a total of 38 minutes on the date of the service which included preparing to see the patient, [id number] patient care, completing clinical documentation, obtaining and/or reviewing separately obtained history, counseling and educating the patient/family/caregiver, ordering medications, tests, or procedures, communicating with other HCPs (not separately reported), independently interpreting results (not separately reported), and communicating results to the patient/family/caregiver. ADD ON PSYCHOTHERAPY CODE : No SIGNATURE: Kathrine Hunter APRN.CNP PATIENT NAME: Leny Issa DATE: July 06, 2023 TIME: 8:40 AM documented in this encounter [facility] 07-06-2023 Miscellaneous Notes Patient has been identified by name and date of : Yes Requested Prescriptions Pending Prescriptions Disp Refills lamoTRIgine (LAMICTAL) 100 mg tablet 90 tablet 0 Sig: Take 1 tablet by mouth once daily. risperiDONE Microspheres (RISPERDAL CONSTA) 12.5 mg/2 mL susp,ERrecon 4 Each 2 Sig: INJECT 4 ML INTRAMUSCULARLY EVERY TWO WEEKS risperiDONE (RISPERDAL) 4 mg tablet 90 tablet 0 Sig: Take 1 tablet by mouth daily at bedtime. benztropine (COGENTIN) 0.5 mg tablet 180 tablet 1 Sig: Take 1 tablet by mouth two times a day. RX INSTRUCTIONS: Patient aware RX will be sent to pharmacy. No need to notify patient. Follow up 07/06/2023. Mayi Irwin LPN documented in this encounter [facility] 05-16-2023 Miscellaneous Notes Patient has been identified by name and date of : Yes Requested Prescriptions Pending Prescriptions Disp Refills hydrOXYzine HCl (ATARAX) 25 mg tablet 90 tablet 2 Sig: Take 1 tablet by mouth three times a day as needed for anxiety. lamoTRIgine (LAMICTAL) 100 mg tablet 90 tablet 0 Sig: Take 1 tablet by mouth once daily. risperiDONE Microspheres (RISPERDAL CONSTA) 12.5 mg/2 mL susp,ERrecon 4 Each 2 Sig: INJECT 4 ML INTRAMUSCULARLY EVERY TWO WEEKS buPROPion XL (WELLBUTRIN XL) 300 mg 24 hr tablet 90 tablet 0 Sig: take 1 tablet by mouth once daily in the morning risperiDONE (RISPERDAL) 4 mg tablet 90 tablet 0 Sig: Take 1 tablet by mouth daily at bedtime. benztropine (COGENTIN) 0.5 mg tablet 180 tablet 1 Sig: Take 1 tablet by mouth two times a day. RX INSTRUCTIONS: Patient aware RX will be sent to pharmacy. No need to notify patient. Follow up 07/06/2023. Mayi Irwin LPN documented in this encounter [facility] 03-09-2023 History of Presen t illness Narrative FOLLOW UP - PSYCHIATRIC PROGRESS NOTE Visit Type:Virtual Visit utilizing two-way audio and video for at least a portion of the visit. Consent for virtual visit obtained verbally. Confidentiality limitations with virtual visits reviewed with the patient and guardian, if present, who have accepted the risk verbally prior to proceeding with encounter. I have communicated my name and active licensure. The patient's identity and physical location were verified at the time of this visit. Either the patient or their legal product sales representative has been informed of the risks and benefits of -- and alternatives to -- treatment through a remote evaluation and consents to proceed with the evaluation remotely. Reason for Visit: Outpatient follow-up and safety monitoring of previously prescribed psychiatric medication, psychotherapy or other treatment CC: Follow up for mood disorder HPI: Last appointment (09/13/2022)patient was seen for a bridge visit by Dr. Henao as this provider was on maternity leave. Treatment plan from that visit: Increase Lamictal to 100 mg Continue daytime and bedtime Risperdal doses Utilize hydroxyzine at the higher dose to help with anxiety during the day and at night. Continue Wellbutrin at the same dose Today Tony shares that he is doing well today. He had a good experience working with Dr. Henao. The last 6 months have been going well. He has had minimal issues at work. His relationships have improved. The Lamictal was really a good call. He is buying a house and there is stress at work for the end of year things. He has to talk himself at times out of delusions that are worsened with stress. He has noticed that he has struggled in using some of his mindfulness tools. Discussed how he started to think about some minor auditory hallucinations yesterday. Has good support from his boss to take time away when he needs it. He is sleeping better if he is able to keep his CPAP on. His allergies make it hard for him to wear the mask. He has been seeing PCP to manage his worsening seasonal allergies. The hydroxyzine has really helped manage his anxiety at night. He was worrying about things. He has only been taking it twice a day and we discussed increasing his use to three times a day. Discussed taking a couple days off work to focus on self-care and anxiety management so his mental health doesn't worsen. He has not had a therapist since Spring. He has purchased online modules for mindfulness that have been helpful. He was seeing a therapist through [facility]. Risks and benefits of the medication, including any black box warnings, were discussed with the patient. Interval Progress: Slightly improved PATIENT DATA: Generalized Anxiety Disorder Scale (CLYDE-7) CLYDE - 7 SCORES 03/07/2022 08/15/2022 03/09/2023 CLYDE-7 Score 3 5 8 (0-4) minimal anxiety, (5-9) mild anxiety, (10-14) moderate anxiety, (15-21) severe anxiety Patient Health Questionnaire (PHQ-9) PHQ-9 03/07/2022 08/15/2022 03/09/2023 Score 5 7 9 (0-4) minimal depression, (5-9) mild depression, (10-14) moderate depression, (15-19) moderately severe depression, (20-27) severe depression PROMIS Global Health PROMIS Global Health - (T-Scores - the mean of general population = 50. Five points is a clinically meaningful difference.) 10/01/2021 03/07/2022 08/15/2022 Physical T-Score 50.8 42.3 42.3 Mental T-Score 53.3 50.8 43.5 History reviewed. No pertinent past medical history. History reviewed. No pertinent surgical history. Current Outpatient Medications Medication Sig Dispense Refill hydrOXYzine HCl (ATARAX) 25 mg tablet take 1 tablet by mouth three times daily as needed for anxiety 90 tablet 0 lamoTRIgine (LAMICTAL) 100 mg tablet Take 1 tablet by mouth once daily 30 tablet 0 RISPERDAL CONSTA 12.5 mg/2 mL susp,ERrecon INJECT 4 ML INTRAMUSCULARLY EVERY TWO WEEKS 4 Each 0 buPROPion XL (WELLBUTRIN XL) 300 mg 24 hr tablet take 1 tablet by mouth once daily in the morning 90 tablet 0 risperiDONE (RISPERDAL) 4 mg tablet Take 1 tablet by mouth daily at bedtime. 90 tablet 1 risperiDONE (RISPERDAL) 1 mg tablet Take 1 tablet by mouth once daily. 90 tablet 1 benztropine (COGENTIN) 0.5 mg tablet Take 1 tablet by mouth twice daily. 180 tablet 1 Fenofibrate (LOFIBRA) 54 mg tablet No current facility-administered medications for this visit. ROS: GENERAL: Negative for malaise, significant weight loss and fever. HEENT: No changes in hearing or vision, no nose bleeds or other nasal problems. RESPIRATORY: Negative for cough, wheezing and shortness of breath. CARDIOVASCULAR: Negative for chest pain, leg swelling and palpitations. GI: Negative for abdominal discomfort, blood in stools or black stools. : Negative for dysuria, frequency and incontinence. MUSCULOSKELETAL: Negative for joint pain or swelling, back pain, and muscle pain. SKIN: Negative for lesions, rash, and itching. HEMATOLOGY/LYMPHOLOGY Negative for prolonged bleeding, bruising easily, and swollen nodes. ENDOCRINE: Negative for cold or heat intolerance, polyuria, polydipsia and goiter. NEURO: Negative for headaches, syncope, seizures and paralysis. PFSH: See HPI VITAL SIGNS: There were no vitals filed for this visit. MENTAL STATUS EXAM: CONSTITUTIONAL: Casually dressed ORIENTATION: Person, Place, Time and Situation MEMORY: Recent intact, Remote intact, Immediate intact CONCENTRATION: Normal MOOD: concerned AFFECT: Full and appropriate to topic SPEECH : Clear & distinct LANGUAGE : Normal ASSOCIATIONS: Intact THOUGHT PROCESS : Logical, Coherent, and Rational PROGRESSION : There was no evidence of disturbance in thought perception or progression. FUND OF KNOWLEDGE : Appropriate and Adequate SUICIDE: None HOMICIDE: None DATA REVIEWED: Psychiatric scales and Electronic medical record DIAGNOSIS: PRIMARY: Schizoaffective disorder, Bipolar type Secondary : Generalized Anxiety Disorder GAF: -70-61 Some mild symptoms or some difficulty in social, occupational, or school functioning, but generally functioning pretty well. TREATMENT PLAN: 1. Take Hydroxyzine three times a day consistently to help with anxiety symptoms. 2. Take some time off work and engage in self-care and mindfulness. Will reach out if he needs this provider to complete any paperwork or send a note. 3. Start holistic psychotherapy. Consult placed. 4. Continue Lamictal, Wellbutrin, and Risperdal at the same dose. MEDICATION CHANGES: - Reviewed Lamictal titration & risk of severe rash. Instructed to call RICARDO if this occurs. Denies any involuntary movement related side effects. - Discussed taking Hydroxyzine 3 times a day. Follow Up: 4 weeks I spent a total of 38 minutes on the date of the service which included preparing to see the patient, [id number] patient care, completing clinical documentation, obtaining and/or reviewing separately obtained history, counseling and educating the patient/family/caregiver, ordering medications, tests, or procedures, communicating with other HCPs (not separately reported), independently interpreting results (not separately reported), and communicating results to the patient/family/caregiver. ADD ON PSYCHOTHERAPY CODE : No SIGNATURE: Kathrine Hunter APRN.CNP PATIENT NAME: Leny Issa DATE: March 09, 2023 TIME: 8:35 AM documented in this encounter [facility] 03-06-2023 Miscellaneous Notes Has an appointment scheduled for 03/09/2023 documented in this encounter [facility] 02-24-2023 Miscellaneous Notes Message to call office to schedule FU. Patient's request for medication is as follows: Requested Prescriptions Pending Prescriptions Disp Refills risperiDONE (RISPERDAL) 4 mg tablet 90 tablet 1 Sig: Take 1 tablet by mouth daily at bedtime. risperiDONE Microspheres (RISPERDAL CONSTA) 12.5 mg/2 mL susp,ERrecon 4 Each 0 Prescription(s) as above. Please process accordingly. Aiden Cordon documented in this encounter [facility] 02-22-2023 Miscellaneous Notes Message to call office to schedule FU. Please contact the patient to schedule a follow up appointment. Last: 08/15/[address] with Joan Henao Next NA documented in this encounter [facility] 01-30-2023 Miscellaneous Notes Last: 09/13/[address] Henao Noted follow up with Dr. Henao in 4-6 weeks Next: ALDAIR msg sent to patient to schedule his follow up, documented in this encounter [facility] 12-16-2022 Miscellaneous Notes Last: Noted-follow up in 6 months Next: ALDAIR documented in this encounter [facility] 12-15-2022 Miscellaneous Notes Patient's request for medication is as follows: Requested Prescriptions Pending Prescriptions Disp Refills lamoTRIgine (LAMICTAL) 100 mg tablet [Pharmacy Med Name: lamoTRIgine 100 MG Oral Tablet] 30 tablet 0 Sig: Take 1 tablet by mouth once daily Prescription(s) as above. Please process accordingly. Aiden Cordon documented in this encounter [facility] 08-31-2022 Miscellaneous Notes Patient has been identified by name and date of : Yes Requested Prescriptions Pending Prescriptions Disp Refills risperiDONE (RISPERDAL) 4 mg tablet 90 tablet 1 Sig: Take 1 tablet by mouth daily at bedtime. risperiDONE Microspheres (RISPERDAL CONSTA) 12.5 mg/2 mL susp,ERrecon 4 Each 4 Sig: Inject 4 mL intramuscularly every 2 weeks. RX INSTRUCTIONS: Patient aware RX will be sent to pharmacy. No need to notify patient. Follow up 09/13/[address] Henao. Mayi Irwin LPN documented in this encounter [facility] 05-11-2022 History of Presen t illness Narrative Patient did not log in for his virtual appointment with the provider. He did not answer his phone when he was called before and during the appointment time. documented in this encounter [facility] 03-14-2022 Miscellaneous Notes Refills left on [facility] pharmacy voice mail. Patient would like refills sent to [facility], pharmacy is updated. Patient requesting refill(s): [facility] Request routed to original prescriber, Kathrine Hunter Last Seen: 10/01/21 Upcoming appt: 03/07/22 Requested Prescriptions Pending Prescriptions Disp Refills risperiDONE (RISPERDAL) 1 mg tablet 90 tablet 0 Sig: Take 1 tablet by mouth once daily. Please review and process accordingly. Thank you! documented in this encounter [facility] 02-28-2022 Miscellaneous Notes Patient has been identified by name and date of : Yes Requested Prescriptions Pending Prescriptions Disp Refills risperiDONE (RISPERDAL) 4 mg tablet 90 tablet 0 Sig: Take 1 tablet by mouth daily at bedtime. buPROPion XL (WELLBUTRIN XL) 300 mg 24 hr tablet 90 tablet 0 Sig: Take 1 tablet by mouth every morning. benztropine (COGENTIN) 0.5 mg tablet 180 tablet 0 Sig: Take 1 tablet by mouth twice daily. RX INSTRUCTIONS: Patient aware RX will be sent to pharmacy. No need to notify patient. Follow up 03/07/2022. Mayi Irwin LPN documented in this encounter [facility] 01-21-2022 Miscellaneous Notes Refilled risperdal 1 mg tablet, 90 days There is a valid prescription for Risperdal Consta documented in this encounter [facility] 01-03-2022 Miscellaneous Notes Patient has been identified by name and date of : Yes Last office visit in this department: Visit date not found RX INSTRUCTIONS: Patient aware RX will be sent to pharmacy. No need to notify patient. Patient phones requesting refills as follows: Requested Prescriptions Pending Prescriptions Disp Refills risperiDONE Microspheres (RISPERDAL CONSTA) 12.5 mg/2 mL susp,ERrecon 4 Each 2 Sig: Inject 4 mL intramuscularly every 2 weeks. benztropine (COGENTIN) 0.5 mg tablet 180 tablet 0 Sig: Take 1 tablet by mouth twice daily. Please review and advise. Brenda Acosta documented in this encounter [facility] 10-01-2021 History of Presen t illness Narrative Images from the original note were not included. PSYC FOLLOW UP - PSYCHIATRIC PROGRESS NOTE DIAGNOSIS: 1. Schizoaffective disorder, bipolar type 2. Generalized anxiety disorder GAF: -90-81 Absent or minimal symptoms, good functioning in all areas, interested and involved in a wide range of activities, no more than everyday problems. TREATMENT PLAN: 1. Continue Risperdal, Wellbutrin, Cogentin, and Risperdal IM at the same dose. 2. Utilize Atarax as needed for increased episodes of anxiety. 3. Continue incorporating physical activity and health eating into his daily routine. 4. Follow up in 3 months. The effects and side effects of all the medications were reviewed in detail with the patient. He is in agreement with the treatment plan. He is aware to reach out with any questions, concerns, or worsening of symptoms prior to the next appointment. Patient denies any involuntary movement related side effects. CC: Follow up regarding mood and anxiety With the patient consent, visit was performed virtually. HPI: Leny Issa is a 31 year old Male with a history of CLYDE and Schizoaffective disorder presenting today for follow-up. Date of last visit: 07/05/2021 Plan from last visit: 3. Utilize risperidone as needed when he starts to feel more anxious or paranoid. 4. Complete the fasting lab work this week. 5. Continue to utilize Atarax as needed for increased episodes of anxiety. 6. Continue Wellbutrin risperidone, Cogentin, and risperidone IM at the same dose. 7. Continue incorporating physical activity and healthy eating into his daily routine. 8. Follow-up with this provider in 3 months. Today Tony shares that he is doing really well. That addition of the 1 mg Risperdal has really helped improve his mood and anxiety. Prior to that he had episodes of verbal outbursts and felt that his IM Risperdal was wearing off earlier. He has been taking the additional 1 mg dose of Risperdal daily. He is no longer having episodes of paranoia. His work is going well now and he denies any stress in any relationships currently. He completed his lab work and his PCP started him on fenofibrate 54 mg to help with his elevated cholesterol. He had started using an turner [employer]. He has lost 16 pounds. Feels better about his mobility. Hoping to stay consistent with diet and weight loss. He has been trying to eat no later than 6pm. This has also improved his sleep quality. Patient enquired about switching from the IM formulation to oral. We discussed the risks concerning his mental health and wellbeing and patient was understanding. Since the slight increase in Risperdal, patient does not feel that he has to rely on his hydroxyzine as much as he was in the past. Interval Progress: Improved Risks and benefits of the medication, including any black box warnings, were discussed with the patient. Social History: No change PATIENT DATA: Generalized Anxiety Disorder Scale (CLYDE-7) CLYDE - 7 SCORES 12/17/2020 07/05/2021 10/01/2021 CLYDE-7 Score 12 4 0 (0-4) minimal anxiety, (5-9) mild anxiety, (10-14) moderate anxiety, (15-21) severe anxiety Patient Health Questionnaire (PHQ-9) PHQ-9 12/17/2020 07/05/2021 10/01/2021 Score 12 4 4 (0-4) minimal depression, (5-9) mild depression, (10-14) moderate depression, (15-19) moderately severe depression, (20-27) severe depression ROS: See HPI General: Negative for fever, malaise, unintentional weight loss HEENT: Negative for recent changes in vision or hearing, no nasal drainage Respiratory: Negative for cough, wheezing or SOB Cardiovascular: Negative for chest pain GI: Negative for nausea, vomiting, change in bowel habits MUSCULOSKELETAL: Negative for acute back or joint pain SKIN: Negative for rash NEURO: Negative for headaches, seizures, focal neurological deficits All other systems negative. VITAL SIGNS: None obtained due to virtual visit. BP Temp Pulse Resp SpO2 MENTAL STATUS EXAMINATION: Appearance: Appropriately groomed, appears stated age Behavior: Appropriately engaged Psychomotor: No psychomotor agitation Cognition Level of Consciousness: Awake and alert. No fluctuation in wakefulness. Orientation: Grossly oriented Memory: Intact Attention/Concentration: Good Fund of Knowledge: Able to demonstrate an awareness of current events. Mood: Euthymic Affect: Full range Speech/Language: Appropriate tone, prosody, nacho, phonetics, and syntax Thought Form: Goal-directed. No loosening of associations. Thought Content: No delusions noted or endorsed. Perceptual Disturbances: Did not appear to respond to auditory stimuli. Safety: Suicidal Ideations: No suicidal ideation, intent or plan. Homicidal Ideations: No homicidal ideation, intent or plan. Insight: Appropriate Judgment: Appropriate I spent a total of 28 minutes on the date of the service which included preparing to see the patient, [id number] patient care, completing clinical documentation, and counseling and educating the patient/family/caregiver, ordering medications/labs. Kathrine Hunter APRN.JOSÉ MIGUEL October 01, 2021 7:58 AM documented in this encounter [facility] 07-05-2021 Instructions Kathrine Hunter APRN.JOSÉ MIGUEL - 07/05/2021 8:36 AM EDT Hello Leny, It was good to talk with you today. Below is a summary of the plan that we discussed during your appointment for reference. Of course, if you have any questions or concerns do not hesitate to reach out to me via a message or call. Kathrine Luna APRN.CNP PLAN AND FOLLOW UP: YOU SHOULD SEEK IMMEDIATE MEDICAL ATTENTION AT THE NEAREST EMERGENCY DEPARTMENT OR BY CALLING 911, IF ANY OF THE FOLLOWING OCCURS: - New or worsening thoughts of harming yourself (suicidal thoughts) or others (homicidal thoughts) - Not feeling safe at home or worrying about your ability to remain safe at home If you are having thoughts of harming yourself or others, then you can: - Call the National Suicide Hotline at 0-015-QXBBALL ( ) or 5-171-351-TALK (5758) - Text 4HOPE to 736667 Medication Update: 1. Risperdal 1 mg take 1 tablet once daily as needed for increased feelings of anxiety or paranoid thoughts 2. Continue Risperdal 4 mg, Cogentin, hydroxyzine, Wellbutrin at the same dose. 3. Continue to take the IM Risperdal every 2 weeks. Lab work: Complete fasting lab work this week. Next appointment: --Schedule in 3 months or sooner if needed -- You may call the department appointment line at [phone] to schedule your appointment. -- Please call my nurse Mayi at [phone] or send me a message in [facility] with any questions or concerns between appointments. documented in this encounter [facility] 07-05-2021 History of Presen t illness Narrative Images from the original note were not included. PSYC FOLLOW UP - PSYCHIATRIC PROGRESS NOTE DIAGNOSIS: 1. Schizoaffective disorder, bipolar type 2. Generalized anxiety disorder GAF: -90-81 Absent or minimal symptoms, good functioning in all areas, interested and involved in a wide range of activities, no more than everyday problems. TREATMENT PLAN: 1. Utilize risperidone as needed when he starts to feel more anxious or paranoid. 2. Complete the fasting lab work this week. 3. Continue to utilize Atarax as needed for increased episodes of anxiety. 4. Continue Wellbutrin risperidone, Cogentin, and risperidone IM at the same dose. 5. Continue incorporating physical activity and healthy eating into his daily routine. 6. Follow-up with this provider in 3 months. Medication Update: 1. Risperdal 1 mg take 1 tablet once daily as needed for increased feelings of anxiety or paranoid thoughts 2. Continue Risperdal 4 mg, Cogentin, hydroxyzine, Wellbutrin at the same dose. 3. Continue to take the IM Risperdal every 2 weeks. The effects and side effects of all the medications were reviewed in detail with the patient. He is in agreement with the treatment plan. He is aware to reach out with any questions, concerns, or worsening of symptoms prior to the next appointment. Patient denies any involuntary movement related side effects. CC: Anxiety and Schizoaffective Disorder With the patient consent, visit was performed virtually. HPI: Leny Issa is a 31 year old Male with a history of CLYDE and Schizoaffective disorder presenting today for follow-up. Date of last visit: 04/01/2021 Plan from last visit: 1. Order fasting lab work prior to the next appointment. 2. Continue Risperdal, Wellbutrin, Cogentin, and Atarax at the same dose. 3. Continue working on incorporating physical activities into daily routine. Today Tony shares that he has been pretty good. Feels that he is doing a lot better in managing his anxiety. He still has some episodes of anxiety and paranoia but he is able to work through them better. He has noticed that he has been using less of atarax this past 3 months. Sometimes he has noticed that he feels more on edge a day or two prior to his IM risperidone being due. During these times he has noticed that he was being more inappropriate professionally and gossiping. He has been encouraged to try to take atarax more consistently during these times if he feels more on edge. We also discussed trying PRN dose of Risperdal during those times if he feels more paranoid or like he is getting slightly hypomanic. He plans on getting the fasting blood work completed this week. Patient and started engaging in weight loss using an turner called [employer] which combines CBT and weight loss tracking. He has been happy with his weight loss so far. He reports that his diet is healthy. He has also been exercising more consistently with a friend. He has also been enjoying riding his bike. He has been tolerating his other medications without any side effects. He feels that the current combination of the medications are supporting his symptoms well. Interval Progress: Improved Risks and benefits of the medication, including any black box warnings, were discussed with the patient. Social History: See HPI PATIENT DATA: Generalized Anxiety Disorder Scale (CLYDE-7) CLYDE - 7 SCORES 12/17/2020 07/05/2021 CLYDE-7 Score 12 4 (0-4) minimal anxiety, (5-9) mild anxiety, (10-14) moderate anxiety, (15-21) severe anxiety Patient Health Questionnaire (PHQ-9) PHQ-9 12/17/2020 07/05/2021 Score 12 4 (0-4) minimal depression, (5-9) mild depression, (10-14) moderate depression, (15-19) moderately severe depression, (20-27) severe depression ROS: General: Negative for fever, malaise, unintentional weight loss HEENT: Negative for recent changes in vision or hearing, no nasal drainage Respiratory: Negative for cough, wheezing or SOB Cardiovascular: Negative for chest pain GI: Negative for nausea, vomiting, change in bowel habits MUSCULOSKELETAL: Negative for acute back or joint pain SKIN: Negative for rash NEURO: Negative for headaches, seizures, focal neurological deficits All other systems negative. MENTAL STATUS EXAMINATION: Appearance: Appropriately groomed, appears stated age Behavior: Appropriately engaged Psychomotor: No psychomotor agitation Cognition Level of Consciousness: Awake and alert. No fluctuation in wakefulness. Orientation: Grossly oriented Memory: Intact Attention/Concentration: Good Fund of Knowledge: Able to demonstrate an awareness of current events. Mood: Euthymic Affect: Full range Speech/Language: The patient demonstrates appropriate tone, prosody, nacho, phonetics, and syntax and Appropriate tone, prosody, nacho, phonetics, and syntax Thought Form: Goal-directed. No loosening of associations. Thought Content: No delusions noted or endorsed. Perceptual Disturbances: Did not appear to respond to auditory stimuli. Safety: Suicidal Ideations: No suicidal ideation, intent or plan. Homicidal Ideations: No homicidal ideation, intent or plan. Insight: Good Judgment: Good I spent a total of 28 minutes on the date of the service which included preparing to see the patient, [id number] patient care, completing clinical documentation, and counseling and educating the patient/family/caregiver, ordering medications/labs. Kathrine Hunter APRN.JOSÉ MIGUEL July 05, 2021 8:03 AM documented in this encounter [facility] 06-21-2021 Miscellaneous Notes Patient calling to make sure request was sent to provider. Patient has been identified by name and date of : Yes Pending Prescriptions Disp Refills BENZTROPINE 0.5 MG TABLET 180 tablet 0 Sig: Take 1 tablet by mouth twice daily. ADAM: No RISPERIDONE 4 MG TABLET 90 tablet 0 Sig: Take 1 tablet by mouth daily at bedtime. ADAM: No RISPERDAL CONSTA 12.5 MG/2 ML INTRAMUSCULAR SUSP,EXTENDED RELEASE 4 Each 2 Sig: Inject 4 mL intramuscularly every 2 weeks. ADAM: No RX INSTRUCTIONS: Patient aware RX will be sent to pharmacy. No need to notify patient. Follow up 07/05/2021. Mayi Irwin LPN documented in this encounter [facility] Evaluation note Diagnosis Schizoaffective disorder, bipolar type (HCC)- Primary Schizoaffective disorder, unspecified condition CLYDE (generalized anxiety disorder) Generalized anxiety disorder [facility] Diagnosis Schizoaffective disorder, bipolar type (HCC)- Primary Schizoaffective disorder, unspecified condition CLYDE (generalized anxiety disorder) Generalized anxiety disorder [facility]OW- Primary [facility] Diagnosis Schizoaffective disorder, bipolar type (HCC)- Primary Schizoaffective disorder, unspecified condition CLYDE (generalized anxiety disorder) Generalized anxiety disorder [facility] Diagnosis Schizoaffective disorder, bipolar type (HCC)- Primary Schizoaffective disorder, unspecified condition CLYDE (generalized anxiety disorder) Generalized anxiety disorder documented in this encounter [facility] note* Diagnosis Hyperlipoproteinemia- Primary Other and unspecified hyperlipidemia documented in this encounter [facility] note* Diagnosis APPOINTMENT CANCELLED- Primary documented in this encounter [facility] note* Diagnosis Schizoaffective disorder, bipolar type (HCC)- Primary Schizoaffective disorder, unspecified condition documented in this encounter [facility] note* Diagnosis Schizoaffective disorder, bipolar type (HCC)- Primary Schizoaffective disorder, unspecified condition documented in this encounter [facility] note* Diagnosis Schizoaffective disorder, bipolar type (HCC)- Primary Schizoaffective disorder, unspecified condition CLYDE (generalized anxiety disorder) Generalized anxiety disorder documented in this encounter [facility] note* Diagnosis Schizoaffective disorder, bipolar type (HCC)- Primary Schizoaffective disorder, unspecified condition documented in this encounter [facility] note* Diagnosis Schizoaffective disorder, bipolar type (HCC)- Primary Schizoaffective disorder, unspecified condition documented in this encounter [facility] note* Diagnosis Schizoaffective disorder, bipolar type (HCC)- Primary Schizoaffective disorder, unspecified condition documented in this encounter [facility] note* Diagnosis Schizoaffective disorder, bipolar type (HCC)- Primary Schizoaffective disorder, unspecified condition CLYDE (generalized anxiety disorder) Generalized anxiety disorder Chronic post-traumatic stress disorder (PTSD) documented in this encounter [facility] note* Diagnosis Schizoaffective disorder, bipolar type (HCC)- Primary Schizoaffective disorder, unspecified condition documented in this encounter [facility] note* Diagnosis Schizoaffective disorder, bipolar type (HCC)- Primary Schizoaffective disorder, unspecified condition documented in this encounter [facility] note* Diagnosis Chest pain, unspecified type- Primary documented in this encounter [facility] note* Diagnosis Schizoaffective disorder, bipolar type (HCC)- Primary Schizoaffective disorder, unspecified condition documented in this encounter [facility] note* Diagnosis Schizoaffective disorder, bipolar type (HCC)- Primary Schizoaffective disorder, unspecified condition CLYDE (generalized anxiety disorder) Generalized anxiety disorder Chronic post-traumatic stress disorder (PTSD) Encounter for long-term (current) use of medications Encounter for long-term (current) use of other medications documented in this encounter [facility] note* Diagnosis Schizoaffective disorder, bipolar type (HCC)- Primary Schizoaffective disorder, unspecified condition documented in this encounter [facility] note* Diagnosis Schizoaffective disorder, bipolar type (HCC)- Primary Schizoaffective disorder, unspecified condition documented in this encounter [facility] note* Diagnosis NO SHOW- Primary documented in this encounter [facility] note* Diagnosis Schizoaffective disorder, bipolar type (HCC)- Primary Schizoaffective disorder, unspecified condition documented in this encounter [facility] note* Diagnosis Schizoaffective disorder, bipolar type (HCC)- Primary Schizoaffective disorder, unspecified condition documented in this encounter [facility] note* Diagnosis Schizoaffective disorder, bipolar type (HCC)- Primary Schizoaffective disorder, unspecified condition Encounter for long-term (current) use of medications Encounter for long-term (current) use of other medications documented in this encounter [facility] note* Diagnosis Schizoaffective disorder, bipolar type (HCC)- Primary Schizoaffective disorder, unspecified condition CLYDE (generalized anxiety disorder) Generalized anxiety disorder Chronic post-traumatic stress disorder (PTSD) Psychosocial stressors Other psychological or physical stress, not elsewhere classified Encounter for long-term (current) use of medications Encounter for long-term (current) use of other medications documented in this encounter [facility] note* Diagnosis Schizoaffective disorder, bipolar type (HCC)- Primary Schizoaffective disorder, unspecified condition Encounter for long-term (current) use of medications Encounter for long-term (current) use of other medications documented in this encounter [facility] note* Diagnosis NO SHOW- Primary documented in this encounter [facility] for visit Narrative* Consult, Test, Treat (Routine) - Authorized Specialty Diagnoses / Procedures Referred By Pattie wolf Referred To Contact ADULT PSYCHIATRY Diagnoses injection Procedures [facility] ADULT Kathrine Hunter, DECORATING INSTRUCTOR.[employer] RECONSTRUCTIVE SURGEON [address] [place] [address] Phone: tel: fax: Wstr, Nurse [facility]ly [facility] [address] [place] [address] Phone: tel: fax: Referral ID Status Reason Start Date Expiration Date V isits Requested Visits Authorized [id number] Authorized 04/30/2024 07/29/2024 1 1 [facility] Reason for Referral Specialty Diagnoses / Procedures Referred By Contac t Referred To Contact Diagnoses Schizoaffective disorder, bipolar type (HCC) CLYDE (generalized anxiety disorder) Procedures CONSULT TO HOLISTIC PSYCHOTHERAPY OFFICE/OUTPATIENT [facility] 60-74 MINUTES Kathrine Hunter, DECORATING INSTRUCTOR.[facility] [address] [place] [address] Referral ID Status Reason Start Date Expiration Date Visits Requested Visits Authorized [id number] Pending Review PCP Requested Referral 03/09/2023 03/08/2024 1 1 Summary Purpose Family History No Family History Records FoundNo Family History Records Found Advance Directives No Advanced Directives Records FoundNo Advanced Directives Records Found Additional Source Comments Source Comments (unrecognize d section and content) In the event this informatio n is protected by the Federal Confidentiality of Alcohol and Drug Abuse Patient Records regulations: The Federal rules restrict any use of the information to criminally investigate or prosecute any alcohol or drug abuse patient.[facility] the event this information is protected by the Federal Confidentiality of Alcohol and Drug Abuse Patient Records regulations: The Federal rules restrict any use of the information to criminally investigate or prosecute any alcohol or drug abuse patient.[facility] the event this information is protected by the Federal Confidentiality of Alcohol and Drug Abuse Patient Records regulations: The Federal rules restrict any use of the information to criminally investigate or prosecute any alcohol or drug abuse patient.[facility] the event this information is protected by the Federal Confidentiality of Alcohol and Drug Abuse Patient Records regulations: The Federal rules restrict any use of the information to criminally investigate or prosecute any alcohol or drug abuse patient.[facility] the event this information is protected by the Federal Confidentiality of Alcohol and Drug Abuse Patient Records regulations: The Federal rules restrict any use of the information to criminally investigate or prosecute any alcohol or drug abuse patient.[facility] the event this information is protected by the Federal Confidentiality of Alcohol and Drug Abuse Patient Records regulations: The Federal rules restrict any use of the information to criminally investigate or prosecute any alcohol or drug abuse patient.[facility] the event this information is protected by the Federal Confidentiality of Alcohol and Drug Abuse Patient Records regulations: The Federal rules restrict any use of the information to criminally investigate or prosecute any alcohol or drug abuse patient.[facility] the event this information is protected by the Federal Confidentiality of Alcohol and Drug Abuse Patient Records regulations: The Federal rules restrict any use of the information to criminally investigate or prosecute any alcohol or drug abuse patient.[facility] the event this information is protected by the Federal Confidentiality of Alcohol and Drug Abuse Patient Records regulations: The Federal rules restrict any use of the information to criminally investigate or prosecute any alcohol or drug abuse patient.[facility] the event this information is protected by the Federal Confidentiality of Alcohol and Drug Abuse Patient Records regulations: The Federal rules restrict any use of the information to criminally investigate or prosecute any alcohol or drug abuse patient.[facility] the event this information is protected by the Federal Confidentiality of Alcohol and Drug Abuse Patient Records regulations: The Federal rules restrict any use of the information to criminally investigate or prosecute any alcohol or drug abuse patient.[facility] the event this information is protected by the Federal Confidentiality of Alcohol and Drug Abuse Patient Records regulations: The Federal rules restrict any use of the information to criminally investigate or prosecute any alcohol or drug abuse patient.[facility] the event this information is protected by the Federal Confidentiality of Alcohol and Drug Abuse Patient Records regulations: The Federal rules restrict any use of the information to criminally investigate or prosecute any alcohol or drug abuse patient.[facility] the event this information is protected by the Federal Confidentiality of Alcohol and Drug Abuse Patient Records regulations: The Federal rules restrict any use of the information to criminally investigate or prosecute any alcohol or drug abuse patient.[facility] the event this information is protected by the Federal Confidentiality of Alcohol and Drug Abuse Patient Records regulations: The Federal rules restrict any use of the information to criminally investigate or prosecute any alcohol or drug abuse patient.[facility] the event this information is protected by the Federal Confidentiality of Alcohol and Drug Abuse Patient Records regulations: The Federal rules restrict any use of the information to criminally investigate or prosecute any alcohol or drug abuse patient.[facility] the event this information is protected by the Federal Confidentiality of Alcohol and Drug Abuse Patient Records regulations: The Federal rules restrict any use of the information to criminally investigate or prosecute any alcohol or drug abuse patient.[facility] the event this information is protected by the Federal Confidentiality of Alcohol and Drug Abuse Patient Records regulations: The Federal rules restrict any use of the information to criminally investigate or prosecute any alcohol or drug abuse patient.[facility] the event this information is protected by the Federal Confidentiality of Alcohol and Drug Abuse Patient Records regulations: The Federal rules restrict any use of the information to criminally investigate or prosecute any alcohol or drug abuse patient.[facility]In the event this information is protected by the Federal Confidentiality of Alcohol and Drug Abuse Patient Records regulations: The Federal rules restrict any use of the information to criminally investigate or prosecute any alcohol or drug abuse patient.[facility] the event this information is protected by the Federal Confidentiality of Alcohol and Drug Abuse Patient Records regulations: The Federal rules restrict any use of the information to criminally investigate or prosecute any alcohol or drug abuse patient.[facility] Hospital[facility] the event this information is protected by the Federal Confidentiality of Alcohol and Drug Abuse Patient Records regulations: The Federal rules restrict any use of the information to criminally investigate or prosecute any alcohol or drug abuse patient.[facility] the event this information is protected by the Federal Confidentiality of Alcohol and Drug Abuse Patient Records regulations: The Federal rules restrict any use of the information to criminally investigate or prosecute any alcohol or drug abuse patient.[facility] the event this information is protected by the Federal Confidentiality of Alcohol and Drug Abuse Patient Records regulations: The Federal rules restrict any use of the information to criminally investigate or prosecute any alcohol or drug abuse patient.[facility]In the event this information is protected by the Federal Confidentiality of Alcohol and Drug Abuse Patient Records regulations: The Federal rules restrict any use of the information to criminally investigate or prosecute any alcohol or drug abuse patient.[facility] the event this information is protected by the Federal Confidentiality of Alcohol and Drug Abuse Patient Records regulations: The Federal rules restrict any use of the information to criminally investigate or prosecute any alcohol or drug abuse patient.[facility] the event this information is protected by the Federal Confidentiality of Alcohol and Drug Abuse Patient Records regulations: The Federal rules restrict any use of the information to criminally investigate or prosecute any alcohol or drug abuse patient.[facility] the event this information is protected by the Federal Confidentiality of Alcohol and Drug Abuse Patient Records regulations: The Federal rules restrict any use of the information to criminally investigate or prosecute any alcohol or drug abuse patient.[facility]In the event this information is protected by the Federal Confidentiality of Alcohol and Drug Abuse Patient Records regulations: The Federal rules restrict any use of the information to criminally investigate or prosecute any alcohol or drug abuse patient.[facility]In the event this information is protected by the Federal Confidentiality of Alcohol and Drug Abuse Patient Records regulations: The Federal rules restrict any use of the information to criminally investigate or prosecute any alcohol or drug abuse patient.[facility]In the event this information is protected by the Federal Confidentiality of Alcohol and Drug Abuse Patient Records regulations: The Federal rules restrict any use of the information to criminally investigate or prosecute any alcohol or drug abuse patient.[facility]In the event this information is protected by the Federal Confidentiality of Alcohol and Drug Abuse Patient Records regulations: The Federal rules restrict any use of the information to criminally investigate or prosecute any alcohol or drug abuse patient.[facility] the event this information is protected by the Federal Confidentiality of Alcohol and Drug Abuse Patient Records regulations: The Federal rules restrict any use of the information to criminally investigate or prosecute any alcohol or drug abuse patient.[facility]In the event this information is protected by the Federal Confidentiality of Alcohol and Drug Abuse Patient Records regulations: The Federal rules restrict any use of the information to criminally investigate or prosecute any alcohol or drug abuse patient.[facility]In the event this information is protected by the Federal Confidentiality of Alcohol and Drug Abuse Patient Records regulations: The Federal rules restrict any use of the information to criminally investigate or prosecute any alcohol or drug abuse patient.[facility]In the event this information is protected by the Federal Confidentiality of Alcohol and Drug Abuse Patient Records regulations: The Federal rules restrict any use of the information to criminally investigate or prosecute any alcohol or drug abuse patient.[facility]In the event this information is protected by the Federal Confidentiality of Alcohol and Drug Abuse Patient Records regulations: The Federal rules restrict any use of the information to criminally investigate or prosecute any alcohol or drug abuse patient.[facility]In the event this information is protected by the Federal Confidentiality of Alcohol and Drug Abuse Patient Records regulations: The Federal rules restrict any use of the information to criminally investigate or prosecute any alcohol or drug abuse patient.[facility] HospitalIn the event this information is protected by the Federal Confidentiality of Alcohol and Drug Abuse Patient Records regulations: The Federal rules restrict any use of the information to criminally investigate or prosecute any alcohol or drug abuse patient.[facility] HospitalIn the event this information is protected by the Federal Confidentiality of Alcohol and Drug Abuse Patient Records regulations: The Federal rules restrict any use of the information to criminally investigate or prosecute any alcohol or drug abuse patient.[facility] HospitalIn the event this information is protected by the Federal Confidentiality of Alcohol and Drug Abuse Patient Records regulations: The Federal rules restrict any use of the information to criminally investigate or prosecute any alcohol or drug abuse patient.[facility] HospitalIn the event this information is protected by the Federal Confidentiality of Alcohol and Drug Abuse Patient Records regulations: The Federal rules restrict any use of the information to criminally investigate or prosecute any alcohol or drug abuse patient.[facility] HospitalIn the event this information is protected by the Federal Confidentiality of Alcohol and Drug Abuse Patient Records regulations: The Federal rules restrict any use of the information to criminally investigate or prosecute any alcohol or drug abuse patient.[facility] HospitalIn the event this information is protected by the Federal Confidentiality of Alcohol and Drug Abuse Patient Records regulations: The Federal rules restrict any use of the information to criminally investigate or prosecute any alcohol or drug abuse patient.[facility] HospitalIn the event this information is protected by the Federal Confidentiality of Alcohol and Drug Abuse Patient Records regulations: The Federal rules restrict any use of the information to criminally investigate or prosecute any alcohol or drug abuse patient.[facility] HospitalIn the event this information is protected by the Federal Confidentiality of Alcohol and Drug Abuse Patient Records regulations: The Federal rules restrict any use of the information to criminally investigate or prosecute any alcohol or drug abuse patient.[facility] HospitalIn the event this information is protected by the Federal Confidentiality of Alcohol and Drug Abuse Patient Records regulations: The Federal rules restrict any use of the information to criminally investigate or prosecute any alcohol or drug abuse patient.[facility] HospitalIn the event this information is protected by the Federal Confidentiality of Alcohol and Drug Abuse Patient Records regulations: The Federal rules restrict any use of the information to criminally investigate or prosecute any alcohol or drug abuse patient.[facility] HospitalIn the event this information is protected by the Federal Confidentiality of Alcohol and Drug Abuse Patient Records regulations: The Federal rules restrict any use of the information to criminally investigate or prosecute any alcohol or drug abuse patient.[facility] HospitalIn the event this information is protected by the Federal Confidentiality of Alcohol and Drug Abuse Patient Records regulations: The Federal rules restrict any use of the information to criminally investigate or prosecute any alcohol or drug abuse patient.[facility] HospitalIn the event this information is protected by the Federal Confidentiality of Alcohol and Drug Abuse Patient Records regulations: The Federal rules restrict any use of the information to criminally investigate or prosecute any alcohol or drug abuse patient.[facility] HospitalIn the event this information is protected by the Federal Confidentiality of Alcohol and Drug Abuse Patient Records regulations: The Federal rules restrict any use of the information to criminally investigate or prosecute any alcohol or drug abuse patient.[facility] HospitalIn the event this information is protected by the Federal Confidentiality of Alcohol and Drug Abuse Patient Records regulations: The Federal rules restrict any use of the information to criminally investigate or prosecute any alcohol or drug abuse patient.[facility] HospitalIn the event this information is protected by the Federal Confidentiality of Alcohol and Drug Abuse Patient Records regulations: The Federal rules restrict any use of the information to criminally investigate or prosecute any alcohol or drug abuse patient.[facility] HospitalIn the event this information is protected by the Federal Confidentiality of Alcohol and Drug Abuse Patient Records regulations: The Federal rules restrict any use of the information to criminally investigate or prosecute any alcohol or drug abuse patient.[facility] HospitalIn the event this information is protected by the Federal Confidentiality of Alcohol and Drug Abuse Patient Records regulations: The Federal rules restrict any use of the information to criminally investigate or prosecute any alcohol or drug abuse patient.[facility] HospitalIn the event this information is protected by the Federal Confidentiality of Alcohol and Drug Abuse Patient Records regulations: The Federal rules restrict any use of the information to criminally investigate or prosecute any alcohol or drug abuse patient.[facility] HospitalIn the event this information is protected by the Federal Confidentiality of Alcohol and Drug Abuse Patient Records regulations: The Federal rules restrict any use of the information to criminally investigate or prosecute any alcohol or drug abuse patient.[facility] HospitalIn the event this information is protected by the Federal Confidentiality of Alcohol and Drug Abuse Patient Records regulations: The Federal rules restrict any use of the information to criminally investigate or prosecute any alcohol or drug abuse patient.[facility] HospitalIn the event this information is protected by the Federal Confidentiality of Alcohol and Drug Abuse Patient Records regulations: The Federal rules restrict any use of the information to criminally investigate or prosecute any alcohol or drug abuse patient.[facility] HospitalIn the event this information is protected by the Federal Confidentiality of Alcohol and Drug Abuse Patient Records regulations: The Federal rules restrict any use of the information to criminally investigate or prosecute any alcohol or drug abuse patient.[facility] HospitalIn the event this information is protected by the Federal Confidentiality of Alcohol and Drug Abuse Patient Records regulations: The Federal rules restrict any use of the information to criminally investigate or prosecute any alcohol or drug abuse patient.[facility] HospitalIn the event this information is protected by the Federal Confidentiality of Alcohol and Drug Abuse Patient Records regulations: The Federal rules restrict any use of the information to criminally investigate or prosecute any alcohol or drug abuse patient.[facility] HospitalIn the event this information is protected by the Federal Confidentiality of Alcohol and Drug Abuse Patient Records regulations: The Federal rules restrict any use of the information to criminally investigate or prosecute any alcohol or drug abuse patient.[facility] HospitalIn the event this information is protected by the Federal Confidentiality of Alcohol and Drug Abuse Patient Records regulations: The Federal rules restrict any use of the information to criminally investigate or prosecute any alcohol or drug abuse patient.[facility] HospitalIn the event this information is protected by the Federal Confidentiality of Alcohol and Drug Abuse Patient Records regulations: The Federal rules restrict any use of the information to criminally investigate or prosecute any alcohol or drug abuse patient.[facility] HospitalIn the event this information is protected by the Federal Confidentiality of Alcohol and Drug Abuse Patient Records regulations: The Federal rules restrict any use of the information to criminally investigate or prosecute any alcohol or drug abuse patient.[facility] HospitalIn the event this information is protected by the Federal Confidentiality of Alcohol and Drug Abuse Patient Records regulations: The Federal rules restrict any use of the information to criminally investigate or prosecute any alcohol or drug abuse patient.[facility] HospitalIn the event this information is protected by the Federal Confidentiality of Alcohol and Drug Abuse Patient Records regulations: The Federal rules restrict any use of the information to criminally investigate or prosecute any alcohol or drug abuse patient.[facility] HospitalIn the event this information is protected by the Federal Confidentiality of Alcohol and Drug Abuse Patient Records regulations: The Federal rules restrict any use of the information to criminally investigate or prosecute any alcohol or drug abuse patient.[facility] HospitalIn the event this information is protected by the Federal Confidentiality of Alcohol and Drug Abuse Patient Records regulations: The Federal rules restrict any use of the information to criminally investigate or prosecute any alcohol or drug abuse patient.[facility] HospitalIn the event this information is protected by the Federal Confidentiality of Alcohol and Drug Abuse Patient Records regulations: The Federal rules restrict any use of the information to criminally investigate or prosecute any alcohol or drug abuse patient.[facility] Reason for Visit (unrecogniz ed section and content) Reason Comments No Show Specialty Diagnoses / Procedures Referred By Contac t Referred To Contact Psychiatry / ADULT PSYCHIATRY Diagnoses Provider Ordered 3 month follow up Procedures EST [facility] ADULT Kathrine Hunter, DECORATING INSTRUCTOR.[employer]IC AND RECONSTRUCTIVE SURGEON [address] [place] [address] Phone: tel: fax: Kathrine Hunter, DECORATING INSTRUCTOR.[employer] AND RECONSTRUCTIVE SURGEON [address] [place] [address] Phone: tel: fax: Referral ID Status Reason Start Date Expiration Date V isits Requested Visits Authorized [id number] New Request 05/28/2024 08/26/2024 1 1 Reason Comments Follow Up Schizoaffective diso rder, bipolar type Specialty Diagnoses / Procedures Referred By Contac t Referred To Contact Psychiatry / ADULT PSYCHIATRY Diagnoses follow up 3 months/injection risperdone Procedures EST [facility] ADULT Kathrine Hunter, DECORATING INSTRUCTOR.[employer]ASTIC AND RECONSTRUCTIVE SURGEON [address] [place] [address] Kathrine Hunter, DECORATING INSTRUCTOR.[employer] RECONSTRUCTIVE SURGEON [address] [place] [address] Referral ID Status Reason Start Date Expiration Date V isits Requested Visits Authorized [id number] New Request 02/20/2024 05/20/2024 1 1 Reason Comments Imm/Inj Schizoaffective diso rder, bipolar type (HCC) Specialty Diagnoses / Procedures Referred By Contac t Referred To Contact Psychiatry / ADULT PSYCHIATRY Diagnoses Schizoaffective disorder, bipolar type Procedures INJECTION, RISPERIDONE Khalida Ann, DO [address] [email or web address] [address] Kathrine Hunter, DECORATING INSTRUCTOR.PLASTIC AND RECONSTRUCTIVE SURGEON [address] [place] [address] Referral ID Status Reason Start Date Expiration Date V isits Requested Visits Authorized [id number] Authorized-R X 11/10/2023 04/02/2024 99 99 Reason Comments Imm/Inj Reason Onset Date Comments Refill Request 06/20/2021 Reason Comments Follow Up Specialty Diagnoses / Procedures Referred By Pattie wolf Referred To Contact Psychiatry / ADULT PSYCHIATRY Diagnoses 3 MONTH FOLLOW UP Procedures VIDEO PSYC/PSYL EST Khalida Ann, DO [address] [place] [address] Kathrine Hunter, DECORATING INSTRUCTOR.[employer]ASTIC AND RECONSTRUCTIVE SURGEON [address] [place] [address] Referral ID Status Reason Start Date Expiration Date V isits Requested Visits Authorized [id number] Closed Financial Clearance Required - OON Payor Patient Cleared INN/SMCP Payor Auth Obtained 07/05/2021 04/02/2022 1 1 Reason Comments Follow Up Anxiety Reason Onset Date Comments Refill Request 01/03/2022 Reason Onset Date Comments Refill Request 01/21/2022 Reason Onset Date Comments Refill Request 02/28/2022 Reason Onset Date Comments Refill Request 05/05/2022 Specialty Diagnoses / Procedures Referred By Pattie wolf Referred To Contact ADULT PSYCHOLOGY Diagnoses Follow-up Procedures Est Kathrine Hunter, DECORATING INSTRUCTOR.PLASTIC AND RECONSTRUCTIVE SURGEON [address] [place] [address] Psyl Adult Formerly [facility] [address] [place] [address] Referral ID Status Reason Start Date Expiration Date Visits Requested Visits Authorized [id number] Authorized Patient Cleared - Qualified 100% FAS 04/22/2022 07/21/2022 99 99 Reason Onset Date Comments Refill Request 08/31/2022 Reason Comments Refill Request Reason Onset Date Comments Refill Request 02/24/2023 Reason Comments Follow Up Specialty Diagnoses / Procedures Referred By Contac t Referred To Contact Psychiatry / ADULT PSYCHIATRY Diagnoses 6 MONTH FOLLOW UP Procedures VIDEO PSYC/PSYL EST Kathrine Hunter, DECORATING INSTRUCTOR.[employer] AND RECONSTRUCTIVE SURGEON [address] [place] [address] Kathrine Hunter, DECORATING INSTRUCTOR.PLASTIC AND RECONSTRUCTIVE SURGEON [address] [place] [address] Referral ID Status Reason Start Date Expiration Date V isits Requested Visits Authorized [id number] Pending Review 03/03/2023 06/01/2023 1 1 Reason Onset Date Comments Refill Request 05/15/2023 Reason Onset Date Comments Refill Request 07/05/2023 Reason Comments Patient Update Reason Comments Appointment Cancelled Reason Comments Patient Question Reason Onset Date Comments Refill Request 08/22/2023 Reason Comments Orders Reason Onset Date Comments Refill Request 12/04/2023 Reason Comments Injections Reason Onset Date Comments Refill Request 01/16/2024 Reason Comments Imm/Inj Bipolar Specialty Diagnoses / Procedures Referred By Contac t Referred To Contact ADULT PSYCHIATRY Diagnoses injection Procedures [facility] ADULT Kathrine Hunter, DECORATING INSTRUCTOR.[employer]ASTIC AND RECONSTRUCTIVE SURGEON [address] [place] [address] Wstr, Nurse Formerly [facility] [address] [place] [address] Referral ID Status Reason Start Date Expiration Date V isits Requested Visits Authorized [id number] New Request 01/16/2024 04/15/2024 1 1 Reason Comments Imm/Inj Schizoaffective diso rder, bipolar type Specialty Diagnoses / Procedures Referred By Contac t Referred To Contact ADULT PSYCHIATRY Diagnoses 2 week inject Procedures EST [facility] ADULT Kathrine Hunter, DECORATING INSTRUCTOR.[employer]ASTIC AND RECONSTRUCTIVE SURGEON [address] [place] [address] Wstr, Nurse Formerly [facility] [address] [place] [address] Referral ID Status Reason Start Date Expiration Date V isits Requested Visits Authorized [id number] New Request 02/20/2024 05/20/2024 1 1 Reason Onset Date Comments Refill Request 06/11/2024 Reason Onset Date Comments Refill Request 07/02/2024 Reason Comments Med Change Request Reason Comments Pharmacy Call Specialty Diagnoses / Procedures Referred By Contac t Referred To Contact Psychiatry / ADULT PSYCHIATRY Diagnoses Reschedule visit from 05/28/24 Procedures EST [facility] ADULT Kathrine Hunter, DECORATING INSTRUCTOR.[facility] [address] [place] [address] Phone: tel: fax: Kathrine Hunter, DECORATING INSTRUCTOR.[facility] [address] [place] [address] Phone: tel: fax: Referral ID Status Reason Start Date Expiration Date V isits Requested Visits Authorized [id number] New Request 07/09/2024 10/07/2024 1 1 Reason Comments Follow Up Schizoaffective diso rder, bipolar type Imm/Inj Specialty Diagnoses / Procedures Referred By Contac t Referred To Contact ADULT PSYCHIATRY Diagnoses IM injection Procedures EST [facility] ADULT Kathrine Hunter, DECORATING INSTRUCTOR.[facility] [address] [place] [address] Phone: tel: fax: Wstr, Nurse [facility]ly [facility] [address] [place] [address] Phone: tel: fax: Referral ID Status Reason Start Date Expiration Date V isits Requested Visits Authorized [id number] New Request 08/06/2024 11/04/2024 1 1 Reason Onset Date Comments Refill Request 10/22/2024 Specialty Diagnoses / Procedures Referred By Contac t Referred To Contact Psychiatry / ADULT PSYCHIATRY Diagnoses 3 month follow up Procedures EST [facility] ADULT Kathrine Hunter, DECORATING INSTRUCTOR.PLASTIC AND RECONSTRUCTIVE SURGEON [address] [facility] [place] [address] Phone: tel: fax: Kathrine Hunter, DECORATING INSTRUCTOR.PLASTIC AND RECONSTRUCTIVE SURGEON [address] [place] [address] Phone: tel: fax: Referral ID Status Reason Start Date Expiration Date V isits Requested Visits Authorized [id number] New Request 10/22/2024 01/20/2025 1 1 Care Teams (unrecognized sec tion and content) Syrup Mixer Helper Relationship Specialty Start Date End Date Khalida Ann DO [address] [place] [address] PCP - General Family Practice 12/18/20 Khalida Ann DO [address] [place] [address] Referring Family Practice 10/29/20 Syrup Mixer Helper Relationship Specialty Start Date [place] [address] [place] [address] PCP - General Family Practice 12/18/20 Khalida Ann DO [address] [place] [address] Referring Family Practice 10/29/20 Syrup Mixer Helper Relationship Specialty Start Date End Date Khalida Ann DO [address] [place] [address] PCP - General Family Practice 12/18/20 Khalida Ann DO [address] [place] [address] Referring Family Practice 10/29/20 Syrup Mixer Helper Relationship Specialty Start Date End Date Khalida Ann, DO [address] [place] [address] PCP - General Family Medicine 12/18/20 Khalida Ann, DO [address] [place] [address] Referring Family Medicine 10/29/20 Syrup Mixer Helper Relationship Specialty Start Date End Date Khalida Ann, DO [address] [place] [address] PCP - General Family Medicine 12/18/20 Khalida Ann DO [address] [place] [address] Referring Family Medicine 10/29/20 Syrup Mixer Helper Relationship Specialty Start Date End Date Khalida Ann DO [address] [place] [address] PCP - General Family Medicine 12/18/20 Khalida Ann, DO [address] [place] [address] Referring Family Medicine 10/29/20 Syrup Mixer Helper Relationship Specialty Start Date End Date Khalida Ann, DO [address] [place] [address] PCP - General Family Medicine 12/18/20 Khalida Ann, DO [address] [place] [address] Referring Family Medicine 10/29/20 Syrup Mixer Helper Relationship Specialty Start Date End Date Khalida Ann, DO [address] [place] [address] PCP - General Family Medicine 12/18/20 Khalida Ann DO [address] [place] [address] Referring Family Medicine 10/29/20 Syrup Mixer Helper Relationship Specialty Start Date End Date Khalida Ann DO [address] [place] [address] PCP - General Family Medicine 12/18/20 Khalida Ann DO [address] [place] [address] Referring Family Medicine 10/29/20 Syrup Mixer Helper Relationship Specialty Start Date End Date Khalida Ann DO [address] [place] [address] PCP - General Family Medicine 12/18/20 Khalida Ann DO [address] [place] [address] Referring Family Medicine 10/29/20 Syrup Mixer Helper Relationship Specialty Start Date End Date Khalida Ann DO [address] [place] [address] PCP - General Family Medicine 12/18/20 Khalida Ann DO [address] [place] [address] Referring Family Medicine 10/29/20 Syrup Mixer Helper Relationship Specialty Start Date End Date Khalida Ann DO [address] [place] [address] PCP - General Family Medicine 12/18/20 Khalida Ann DO [address] [place] [address] Referring Family Medicine 10/29/20 Syrup Mixer Helper Relationship Specialty Start Date End Date Khalida Ann DO [address] [place] [address] PCP - General Family Medicine 12/18/20 Khalida Ann DO [address] [place] [address] Referring Family Medicine 10/29/20 Syrup Mixer Helper Relationship Specialty Start Date End Date Khalida Ann DO [address] [place] [address] PCP - General Family Medicine 12/18/20 Khalida Ann DO [address] [place] [address] Referring Family Medicine 10/29/20 Syrup Mixer Helper Relationship Specialty Start Date End Date Khalida Ann DO [address] [place] [address] PCP - General Family Medicine 12/18/20 Khalida Ann DO [address] [place] [address] Referring Family Medicine 10/29/20 Syrup Mixer Helper Relationship Specialty Start Date End Date Khalida Ann DO [address] [place] [address] PCP - General Family Medicine 12/18/20 Khalida Ann DO [address] [place] [address] Referring Family Medicine 10/29/20 Syrup Mixer Helper Relationship Specialty Start Date End Date Khalida Ann DO [address] [place] [address] PCP - General Family Medicine 12/18/20 Khalida Ann DO [address] [place] [address] Referring Family Medicine 10/29/20 Syrup Mixer Helper Relationship Specialty Start Date End Date Khalida Ann DO [address] [place] [address] PCP - General Family Medicine 12/18/20 Khalida Ann DO [address] [place] [address] Referring Family Medicine 10/29/20 Syrup Mixer Helper Relationship Specialty Start Date End Date Khalida Ann DO [address] [place] [address] PCP - General Family Medicine 12/18/20 Khalida Ann DO [address] [place] [address] Referring Family Medicine 10/29/20 Syrup Mixer Helper Relationship Specialty Start Date End Date Khalida Ann DO [address] [place] [address] PCP - General Family Medicine 12/18/20 Khalida Ann DO [address] [place] [address] Referring Family Medicine 10/29/20 Syrup Mixer Helper Relationship Specialty Start Date End Date Khalida Ann DO [address] [place] [address] PCP - General Family Medicine 12/18/20 Khalida Ann DO [address] [place] [address] Referring Family Medicine 10/29/20 Syrup Mixer Helper Relationship Specialty Start Date End Date Khalida Ann DO [address] [place] [address] PCP - General Family Medicine 12/18/20 Khalida Ann DO [address] [place] [address] Referring Family Medicine 10/29/20 Syrup Mixer Helper Relationship Specialty Start Date End Date Khalida Ann DO [address] [place] [address] PCP - General Family Medicine 12/18/20 Khalida Ann DO [address] [place] [address] Referring Family Medicine 10/29/20 Syrup Mixer Helper Relationship Specialty Start Date End Date LettyKhalida cornejoDO [address] [place] [address] PCP - General Family Medicine 12/18/20 Letty Khalida DO Skip [address] [place] [address] Referring Family Medicine 10/29/20 Syrup Mixer Helper Relationship Specialty Start Date End Date Letty Khalida ValdiviaDO [address] [place] [address] PCP - General Family Medicine 12/18/20 Letty Khalida ValdiviaDO [address] [place] [address] Referring Family Medicine 10/29/20 Syrup Mixer Helper Relationship Specialty Start Date End Date Letty Khalida ValdiviaDO [address] [place] [address] PCP - General Family Medicine 12/18/20 Khalida Ann DO [address] [place] [address] Referring Family Medicine 10/29/20 Syrup Mixer Helper Relationship Specialty Start Date End Date Letty Khalida ValdiviaDO [address] [place] [address] PCP - General Family Medicine 12/18/20 Khalida Ann DO [address] [place] [address] Referring Family Medicine 10/29/20 Syrup Mixer Helper Relationship Specialty Start Date End Date Khalida Ann DO [address] [place] [address] PCP - General Family Medicine 12/18/20 Khalida Ann DO [address] [place] [address] Referring Family Medicine 10/29/20 Syrup Mixer Helper Relationship Specialty Start Date End Date Khalida Ann DO [address] [place] [address] PCP - General Family Medicine 12/18/20 Khalida Ann DO [address] [place] [address] Referring Family Medicine 10/29/20 Syrup Mixer Helper Relationship Specialty Start Date End Date Khalida Ann DO [address] [place] [address] PCP - General Family Medicine 12/18/20 Khalida Ann DO [address] [place] [address] Referring Family Medicine 10/29/20 Syrup Mixer Helper Relationship Specialty Start Date End Date Khalida Ann DO [address] [place] [address] PCP - General Family Medicine 12/18/20 Khalida nAn DO [address] [place] [address] Referring Family Medicine 10/29/20 (unrecognized sect ion and content) No Status Records FoundNo Status Records Found INFORMATION SOURCE (unrecogn ized section and content) DATE CREATED AUTHOR 02/08/2024 [facility] DATE CREATED AUTHOR AUTHOR'S KAREN BIGGS 10/31/2024 [facility] FOR RECORDS PERTAINING TO PATIENTS WHO ARE OR HAVE BEEN ENROLLED IN A CHEMICAL DEPENDENCY/SUBSTANCEABUSE PROGRAM, SOME INFORMATION MAY BE OMITTED. This clinical summary was aggregated from multiple sources. Caution should be exercised in using it in the provision of clinical care. This summary normalizes information from multiple sources, and as a consequence, information in this document may materially change the coding, format and clinical context of patient data. In addition, data may be omitted in some cases. CLINICAL DECISIONS SHOULD BE BASED ON THE PRIMARY CLINICAL RECORDS. [employer] provides no warranty or guarantee of the accuracy or completeness of information in this document.
--- NOTE | 2024-11-03 04:43 | EDS_ITS ---
HPI History of Present Illness Chief Complaint: Other, Pain/Inj Informant: patient and spouse/S.O. Narrative Narrative: Presents here send other evaluation pulsating sensation in left arm bilateral legs waking him 1 AM. He went to bed at 11 PM. States has a child of 3 months. 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 Drinks a lot of coffee energy drinks caffeine throughout the day. He denies palpitations for which she has had in the past. No pain across the chest. Remote tobacco. Father of [place] at age 59. Denies hypertension diabetes, previous hyperlipidemia currently diet controlled off medications. Denies recent travel or surgeries. No history of PE or DVT. Prior similar symptoms: No PFSH PFSH Medical History Schizoaffective disorder Asthma Home Medications ?Medication ?Instructions ?Recorded ?Last Taken ?Type bupropion HCl 300 mg 24 hr tablet, 300 mg PO DAILY 06/25 Unknown History extended release lamotrigine 150 mg tablet 150 mg PO DAILY 11/03/24 Unk nown History prazosin 2 mg capsule 2 mg PO QHS PRN 11/03/24 Unk nown History risperidone 4 mg tablet 4 mg PO QHS 11/03/24 Unknown History risperidone microspheres 12.5 mg/2 mg IM 11/03/24 Unkn own History mL intramuscular susp,ext releas (Risperdal Consta) Allergy/AdvReac Type Severity Reaction Status Date / Time Fish Containing Products Allergy Severe Anaphylaxis Verified 11/03/24 02:57 (seafood) Surgical History no surgical history Social History Smoking Status: Current some day smoker tobacco type: smokeless tobacco ROS ROS ED Constitutional Constitutional ED: Denies chills, fever(s) or sweats ENT ENT ED: Denies sore throat Cardiovascular Cardiovascular: Denies chest pain, leg edema, palpitations or racing heartbeat Respiratory/Chest Respiratory/Chest: Denies cough, dyspnea or dyspnea on exertion Gastrointestinal Gastrointestinal: Denies abdominal pain, diarrhea, nausea or vomiting Genitourinary Genitourinary ED: Denies dysuria, hematuria or urinary frequency Musculoskeletal Musculoskeletal: Reports extremity pain; Denies back pain or neck pain Integumentary Denies rash or wounds Neurologic Neurologic: Denies headache(s), paresthesias or weakness EXAM Physical Exam Const Vital Signs: 11/03/24 02:55 11/03/24 03:00 Temperature 97.6 F L Temperature Source Oral Pulse Rate 90 Respiratory Rate 14 Respiratory Effort Normal Non-Labored Respiratory Pattern Normal Blood Pressure 144/92 H Blood Pressure Mean 109 Pulse Ox 98 Oxygen Delivery Method Room Air Positive well nourished and well developed General Appearance ED: well developed and NAD HEENT Reports moist mucous membranes normocephalic and atraumatic Eyes General Eye ED: Yes normal appearance of both eyes Neck full ROM Chest Wall Chest: Negative for tenderness Resp normal respiratory effort and normal air movement Effort and Inspection: symmetric chest movement; Negative for respiratory distress Cardio regular rate, regular rhythm and no murmurs Peripheral Pulses: pulses 2+ throughout GI normal to inspection, nondistended, normoactive bowel sounds and non-tender Palpation: Negative for guarding or rebound tenderness present Extremity normal to inspection Extremity Narrative: Soft compartments all 4 extremities. Equal and symmetric pulses upper and lower. General Extremety ED: Negative for edema or tenderness General Extremity: Negative for edema Neuro oriented x3 and no sensory deficits noted Sensorium / Orientation: awake and alert Skin no rashes or lesions noted and no wounds MDM MDM MDM Narrative Medical decision making narrative: Interventions / MDM: Differential diagnosis: Left arm discomfort, myalgias Diagnosis considered but do not suspect: Low suspicion for any aortic dissection with symmetric pulses. No clinical compartment syndrome. My EKG interpretation: Sinus rate of 78, no ST changes. Isolated T wave version lead III nonspecific. QTc 410. Imaging independently reviewed and interpreted by myself: N/A External documents reviewed: N/A Test considered but not ordered:N/A ED course: Patient pulsing sensation left arm bilateral legs. No chest pains. Concerns with family history and dad having [place] at 59 a year ago. Symmetric pulses bilaterally soft compartments. Lower suspicion for dissection or compartment syndrome. EKG no acute findings. Will check labs and troponin. 0515: Electrolytes normal, troponin negative. Remains symptom-free. I do not feel repeat troponin is necessary as he has no chest symptoms. Discussed try to avoid his energy drinks, staying hydrated monitoring symptoms and follow-up with his PCP. Discussed strict return precautions specially develop any chest symptoms or shortness of breath. All questions were answered. Re-evaluation: stable Disposition discussed with patient/family/significant other: Patient and significant other Case discussed with consulting clinician: N/A This note was generated with [email or web address] dictation software. It may contain incorrect words, spelling, and punctuation that were not noted in checking the note before signing. Lab Data Attestation: I reviewed the patient's lab results. Labs: Laboratory Results - last 24 hr 11/03/24 03:37 WBC 7.2 RBC 4.56 L Hgb 13.8 Hct 38.7 L MCV 84.9 MCH 30.3 MCHC 35.7 RDW Std Deviation 37.6 RDW Coeff of Kimberlee 12.3 Plt Count 188 MPV 8.8 Immature Gran % (Auto) 0.300 Neut % (Auto) 51.1 Lymph % (Auto) 36.7 [place] % (Auto) 7.8 Eos % (Auto) 3.5 Baso % (Auto) 0.6 Absolute Neuts (auto) 3.7 Absolute Lymphs (auto) 2.63 Nucleated RBC % 0 Sodium 140 Potassium 3.8 Chloride 103 Carbon Dioxide 24.4 Anion Gap 13 BUN 10 Creatinine 1.05 Estim Creat Clear Calc 111.69 Est GFR (MDRD) Non-Af 96 BUN/Creatinine Ratio 9.6 L Glucose 87 Calcium 9.1 Troponin T High Sens 7 Discharge Plan Triage Chief Complaint: Other, Pain/Inj ED Provider: Benoit Velasco Dx/Rx/DC Orders Clinical Impression: Myalgia, Arm pain Instructions: ED Myalgias Prescriptions: No Action risperidone 4 mg tablet 4 mg PO QHS bupropion HCl 300 mg tablet extended release 24 hr 300 mg PO DAILY risperidone microspheres [Risperdal Consta] 12.5 mg/2 mL suspension,extended rel recon IM lamotrigine 150 mg tablet 150 mg PO DAILY prazosin 2 mg capsule 2 mg PO QHS PRN Primary Care Provider: Drew Ann Referrals: Drew Ann DO [Primary Care Provider] - 1-2 Weeks Activity Restrictions/Additional Instructions: EKG normal labs normal electrolytes including your troponin. Decrease your caffeine and energy drink use. Monitor symptoms. Stay hydrated with water or sports drinks. Get rest and follow-up with your doctor. Print Language: Mongolian Disposition Disposition: Home, Self Care
[2024-11-03 04:50] LABS: Anion Gap 13 (5-15); BUN 10 mg/dL (4-19); BUN/Creat Ratio 9.6 RATIO (10-20); Calcium,Total 9.1 mg/dL (7.6-11.0); Carbon Dioxide 24.4 mmol/L (21.0-32.0); Chloride 103 mmol/L (98-108); Estimated Creatinine Clearance 111.69 ml/min (50-250); Glucose 87 mg/dL (70-99); Potassium 3.8 mmol/L (3.3-5.1); Troponin T High Sensitivity 7 ng/L (<=22)
[2024-11-03 05:24] VITALS: BP 116/70; PULSE 65; RESP 18; TEMP 36.4; O2SAT 97
== END 2024-11-03 05:24 | disposition home or self-care (01) ==
PROVIDERS: Emergency Provider Emergency Medicine; PCP Family Medicine; Visit Provider Emergency Medicine
DX: M79.10 Myalgia, unspecified site (principal); M79.602 Pain in left arm; Z72.0 Tobacco use
CPT/HCPCS: 80048; 84484; 85025; 93005; 96360; 99284; A4216